=== PATIENT | male | born 1960 | race Caucasian/White ===

== ENCOUNTER 2020-10-25 09:46 | Outpatient (REF) | payer OTHER, SELFPAY ==
[2020-10-25 11:20] LABS: Hematocrit 40.4 % (42-52); Hemoglobin 13.6 g/dl (14.0-18.0); Mean Corpuscular HGB Conc 33.7 g/dl (31.0-36.0); Mean Corpuscular Hemoglobin 30.6 pg (27.0-33.0); Mean Platelet Volume 9.8 fL (9.4-12.4); Platelet Count 269 X10*3/uL (160-400); Red Blood Count 4.44 X10*6/uL (4.60-5.80); Red Cell Distribution Width 12.3 % (11.0-16.0); White Blood Count 9.1 X10*3/uL (4.8-10.8)
[2020-10-25 11:31] LABS: Glucose Urine UA NEG (NEG); Leukocyte Esterase Urine NEG (NEG); Nitrite Urine NEG (NEG); PH 6.5 (5.0-8.0); Specific Gravity - Urine 1.025 (1.005-1.025); Urine Blood NEG (NEG); Urine Ketones NEG (NEG); Urine Protein NEG (NEG-TRACE)
[2020-10-25 11:40] LABS: Appearance Urine CLEAR; Color Urine YELLOW
[2020-10-25 12:02] LABS: Alanine Aminotransferase 23 U/L (0-40); Albumin Level 4.3 g/dL (3.5-5.0); Alkaline Phosphatase 54 U/L (39-117); Anion Gap 14 (12-20); Aspartate Amino Transferase 20 U/L (5-37); Bilirubin Total 0.5 mg/dL (0.0-1.0); Blood Urea Nitrogen 18 mg/dL (9-16); Calcium 8.8 mg/dL (8.4-10.2); Carbon Dioxide 25 mmol/L (22-29); Chloride 108 mmol/L (96-108); Cholesterol 201 mg/dL; Estimated Glomerular Filt Rate > 60; Glucose Fasting 103 mg/dL (60-99); HDL Cholesterol 55 mg/dL; LDL Cholesterol Calculated 131 mg/dl; Potassium 4.1 mmol/L (3.3-5.1); Prostate Specific Antigen Scr 0.63 ng/mL (<0.05-4.0); Sodium 143 mmol/L (135-145); Total Protein 7.2 g/dL (6.5-8.0); Triglycerides 75 mg/dL
[2020-10-25 12:27] LABS: Bacteria Urine TRACE /LPF; Mucus Urine 1+ /LPF; RBC Urine 0-2 /HPF (0); WBC Urine 0-2 /HPF (0-4)
== END 2020-10-25 09:47 | disposition home or self-care (01) ==
LOC: HO.HMGCLDS 09:46
PROVIDERS: PCP Internal Medicine; Visit Provider Internal Medicine
DX: Z00.00 Encounter for general adult medical examination without abnormal findings (principal); Z12.5 Encounter for screening for malignant neoplasm of prostate; R10.9 Unspecified abdominal pain; N20.0 Calculus of kidney
CPT/HCPCS: 36415; 80053; 80061; 81001; 84153; 85027

== ENCOUNTER 2020-11-05 08:31 | Outpatient (REF) | payer OTHER, SELFPAY ==
--- NOTE | ~2020-11-05 | CT_ITS ---
EXAMINATION: CT ABDOMEN AND PELVIS WITH CONTRAST CLINICAL INFORMATION: Diverticulitis COMPARISON: None TECHNIQUE: Multidetector volumetric images were obtained from the superior aspect of the liver through the pubic symphysis following administration 85 mL of Omnipaque 350 intravenous contrast. Sagittal and coronal reformatted images were obtained on the technologist's workstation. Oral contrast: Yes This CT examination was performed using dose optimization techniques as appropriate, variously including the following: *Automated exposure control *Adjustment of mA and/or kV according to patient size (this includes techniques or standardized protocols for targeted exams where dose is matched to indication/reason for exam; i.e. extremities or head) *Use of iterative reconstruction technique DLP: 586 mGy-cm FINDINGS: LUNG BASES: The visualized lung bases are unremarkable. LIVER, GALLBLADDER, AND BILIARY TREE: The liver is normal in size, shape, and attenuation. No focal hepatic lesion or biliary ductal dilatation is present. The gallbladder is unremarkable with no evidence of radiopaque gallstones, gallbladder wall thickening, or obvious pericholecystic inflammatory changes. PANCREAS: There is fatty infiltration of the pancreas. SPLEEN: Unremarkable. ADRENAL GLANDS: Unremarkable. KIDNEYS AND URETERS: There are small bilateral low-attenuation renal lesions suggestive of cysts. The largest measures 1 cm in the upper pole of the left kidney. BLADDER: Unremarkable. GASTROINTESTINAL TRACT: There is mild diverticulosis of the colon. No evidence of diverticulitis is seen. The small and large bowel are otherwise unremarkable. The appendix is unremarkable. ABDOMINAL WALL: No significant hernia is appreciated. LYMPH NODES: Normal. VASCULAR: Unremarkable. PELVIC VISCERA: Unremarkable. OSSEOUS STRUCTURES: There is degenerative disc disease at L5-S1. CT/CT abdomen pelvis w con IMPRESSION: Mild diverticulosis. No evidence of diverticulitis. Fatty infiltration of the pancreas. Small bilateral renal cysts.
[2020-11-05] MEDS: Barium Sulfate Oral (Mocha) 450 ML ORAL.SUSP 900 ML PO (12:25)
== END 2020-11-05 08:32 | disposition home or self-care (01) ==
LOC: HO.CT 08:31
PROVIDERS: Visit Provider Internal Medicine
DX: R10.9 Unspecified abdominal pain (principal); K57.92 Diverticulitis of intestine, part unspecified, without perforation or abscess without bleeding
CPT/HCPCS: 74177; Q9967

== ENCOUNTER → 2021-01-03 13:53 | Outpatient (BNVA) | payer OTHER, SELFPAY | PROVIDERS: PCP Internal Medicine; Referring Provider Internal Medicine; Visit Provider Nurse Practitioner | DX: R10.13 Epigastric pain (principal); K29.70 Gastritis, unspecified, without bleeding; K57.92 Diverticulitis of intestine, part unspecified, without perforation or abscess without bleeding; D12.6 Benign neoplasm of colon, unspecified; A04.8 Other specified bacterial intestinal infections | CPT/HCPCS: 99202 ==

== ENCOUNTER 2021-01-04 09:56 | Outpatient (REF) | payer OTHER, SELFPAY | END 2021-01-04 09:57 | disposition home or self-care (01) | LOC: HO.LNP 09:56 | PROVIDERS: Visit Provider Nurse Practitioner | DX: K29.70 Gastritis, unspecified, without bleeding (principal); B96.81 Helicobacter pylori [H. pylori] as the cause of diseases classified elsewhere; R10.13 Epigastric pain | CPT/HCPCS: 87338 ==

== ENCOUNTER 2021-02-28 08:36 | Outpatient (REF) | payer OTHER, SELFPAY ==
--- NOTE | ~2021-02-28 | XR_ITS ---
EXAMINATION: XR LUMBOSACRAL SPINE CLINICAL INFORMATION: Sciatica. COMPARISON: CT scan of 11/05/2020 TECHNIQUE: Three views of the lumbosacral spine. FINDINGS: There is no evidence of acute fracture, spondylolisthesis, or spondylolysis. There is narrowing of the L5-S1 disc space with marginal spurring present. Sacroiliac joints unremarkable. There is some concavity of the superior endplate of L3 which is chronic but more prominent than on the study of 11/05/2020. XR/XR lumbar spine 2-3V IMPRESSION: Degenerative disc disease L5-S1. Mild compression in superior endplate compression fracture without significant loss of height of L3.
[2021-02-28 12:55] LABS: Folate 16.8 ng/mL (> or = 4.0); Vitamin B12 1080 pg/mL (200-900)
== END 2021-02-28 08:37 | disposition home or self-care (01) ==
LOC: HO.HMGCLDS 08:36
PROVIDERS: PCP Internal Medicine; Visit Provider Internal Medicine
DX: M54.30 Sciatica, unspecified side (principal)
CPT/HCPCS: 36415; 72100; 82607; 82746

== ENCOUNTER → 2021-03-01 15:09 | Outpatient (BNVA) | payer OTHER, SELFPAY | PROVIDERS: PCP Internal Medicine; Referring Provider Internal Medicine; Visit Provider Nurse Practitioner | DX: D12.6 Benign neoplasm of colon, unspecified (principal); R10.13 Epigastric pain; A04.8 Other specified bacterial intestinal infections; K29.70 Gastritis, unspecified, without bleeding; M62.08 Separation of muscle (nontraumatic), other site | CPT/HCPCS: 99212 ==

== ENCOUNTER → 2021-06-03 14:27 | Outpatient (BNVA) | payer OTHER, SELFPAY | PROVIDERS: PCP Internal Medicine; Visit Provider Nurse Practitioner | DX: R10.13 Epigastric pain (principal); E04.8 Other specified nontoxic goiter; D12.6 Benign neoplasm of colon, unspecified; K21.9 Gastro-esophageal reflux disease without esophagitis | CPT/HCPCS: 99212 ==

== ENCOUNTER 2021-06-10 08:00 | Outpatient (RCR) | payer OTHER, SELFPAY ==
--- NOTE | 2021-04-17 12:51 | MHC.PT.EP ---
[facility] [place] Office [place] Office [place] Office [address] Sebastian Scott [address] [phone] F: [phone] F: [phone] F: [phone] F: [phone] Physical Therapy Plan of Care Date of Evaluation: Date of Surgery: NA Diagnosis: SCIATICA Assessment: Pt IS 61 YO M REFERRED TO PT FROM DR READ (ALTHOUGH Pt SAYS HE HAS ONLY SEEN DR DASILVA) WITH SCIATICA. Pt PRESENTS WITH C/OB LBP AND B FOOT BURNING . AT ONE POINT DURING EVAL, Pt REPORTS SOME GLUT PAIN. DOES NOT PRESENT WITH TYPICAL SCIATICA SXS. XRAY +DISC SPACE NARROWING L5-S1 WITH PREFERENCE TOWARD FLEXION WITH TRUNK ROM, PREFERS SUP TO PRONE, BUT PREFERS STAND TO SIT. Pt WITH BULGING ABDOMINAL POSTURE WITH WEAK ABD MMS NOTES. TENDS TO SIT TO OFFWEIGHT L SIDE. NEG LIMP WITH GOOD TRUNK FLEXIBILITY WITHOUT SIGNIF LEG WEAKNESS. Pt REPORTS HE HAS BEEN TOLD IN PAST THAT HE HAS A HERNIATED DISC AND DOES REPORT RELIEF WITH INCLINE TABLE AT HOME. MAY BENEFIT FROM TRACTION TRIAL. SHOULD BENFIT FROM BEGINNING WITH EX/STRETCHES WITH NEUTRAL SPINE WITH PROGRESSION TO FLEXION VS EXTENSION PER SXS/TOLERANCE Frequency and Duration: The patient will be seen 2X/WK X 6 WKS Short Term Goals: 1. CENTRALIZE SXS 2. Pt TO PERF 2-3 TASKS (RETURNED ITEM CLERK) WITH PROPER BODY MECH 3. INCREASED AWARENESS POSTURE (SYMMETRICAL SIT NOTED) Resident Service Coordinator Goals: 1. I HEP WITH DC EX PLAN 2. DECREASED BACK PAIN AT LEAST 50% WITH ADLS 3. DECREASED FOOT BURNING 4. IMPROVED ABILITY TO PERF WORK RELATED TASKS WITH LESS SXS 5, IMPROVED LEFI Treatment Plan: Modalities to reduce pain, spasms and effusion. Manual therapy to restore motion and function. Therapeutic exercise to improve strength and flexibility. Neuromuscular re-education for posture and balance. Therapeutic activities to return to functional activities of daily living. Electronically signed by: ANTONIO PIKE PT Please sign and return to therapist. Thank you for your referral.
--- NOTE | 2021-07-24 08:12 | MHC.PT.DC ---
[facility] [place] Office [place] Office [place] Office [address] Sebastian Scott [address] [phone] F: [phone] F: [phone] F: [phone] F: [phone] Physical Therapy Discharge Report Diagnosis: SCIATICA Date of Surgery: NA Date of Evaluation: 04/17/21 Date of Discharge: 07/24/21 Treatments to Date: 6 Cancellations to Date: No Shows to Date: Discharge Status: Patient Elected to Stop Recommend MD Follow-up Discharge Summary: Pt SEEN FOR INIT EVAL AND 5 VISITS. AT LAST VISIT ON 06/10/21 PER ASSESSMENT BY JAIME DOS SANTOS PT,DPT Pt expressing positive response to use of mechanical lumbar traction; reports use of physioball for support LBTR at home.'. Pt THEN CANCELLED LAST SCHEDULED VISIT ON 06/14/21 (SICK) AND DID NOT SCHEDULE ANY FURTHER. PER OFFICE VISIT NOTE FROM DR DASILVA ON 07/16/21, Pt HAD COVID AND HAD BEEN HOSPITALIZED X 1 WK Electronically signed by: ANTONIO PIKE PT Please sign and return to therapist. Thank you for your referral.
== END 2021-07-24 08:15 | disposition home or self-care (01) ==
LOC: HO.PTWFD 08:00
PROVIDERS: PCP Internal Medicine; Visit Provider Internal Medicine
DX: M54.30 Sciatica, unspecified side (principal)
CPT/HCPCS: 97012; 97110; 97162; 97164; 97535

== ENCOUNTER 2021-07-16 09:23 | Outpatient (REF) | payer OTHER, SELFPAY ==
[2021-07-16 11:42] LABS: Hematocrit 38.1 % (42.0-52.0); Hemoglobin 12.7 g/dl (14.0-18.0); Mean Corpuscular HGB Conc 33.3 g/dl (31.0-36.0); Mean Corpuscular Hemoglobin 30.9 pg (27.0-33.0); Mean Corpuscular Volume 92.7 fL (80.0-98.0); Platelet Count 215 X10*3/uL (160-400); Red Blood Count 4.11 X10*6/uL (4.60-5.80); Red Cell Distribution Width 13.1 % (11.0-16.0); White Blood Count 6.8 X10*3/uL (4.8-10.8)
[2021-07-16 11:54] LABS: Alanine Aminotransferase 29 U/L (0-40); Albumin Level 3.8 g/dL (3.5-5.0); Alkaline Phosphatase 60 U/L (39-117); Anion Gap 9 (12-20); Aspartate Amino Transferase 25 U/L (5-37); Bilirubin Total 0.7 mg/dL (0.0-1.0); Blood Urea Nitrogen 17 mg/dL (9-16); Calcium 9.2 mg/dL (8.4-10.2); Carbon Dioxide 29 mmol/L (22-29); Chloride 104 mmol/L (96-108); Estimated Glomerular Filt Rate > 60; Glucose Fasting 99 mg/dL (60-99); Iron 125 mcg/dL (45-160); Percent Iron Saturation 49 % (15-50); Potassium 4.3 mmol/L (3.3-5.1); Sodium 138 mmol/L (135-145); Total Iron Binding Capacity 256 mcg/dL (228-428); Total Protein 6.8 g/dL (6.5-8.0); Unsaturated Iron Binding 131 ug/dL
[2021-07-16 12:11] LABS: Estimated Average Glucose 134 mg/dL; Hemoglobin A1c % 6.3 %
[2021-07-16 12:17] LABS: Vitamin D 25-OH Total 48.8 ng/mL (>30)
[2021-07-16 12:39] LABS: Folate 17.1 ng/mL (> or = 4.0); Vitamin B12 1687 pg/mL (200-900)
== END 2021-07-16 09:24 | disposition home or self-care (01) ==
LOC: HO.HMGCLDS 09:23
PROVIDERS: PCP Internal Medicine; Visit Provider Internal Medicine
DX: Z00.00 Encounter for general adult medical examination without abnormal findings (principal); R53.83 Other fatigue; R73.9 Hyperglycemia, unspecified; E55.9 Vitamin D deficiency, unspecified; U07.1 COVID-19
CPT/HCPCS: 36415; 80053; 82306; 82607; 82746; 83036; 83540; 85027

== ENCOUNTER 2021-08-15 10:44 | Outpatient (REF) | payer OTHER, SELFPAY ==
--- NOTE | ~2021-08-15 | XR_ITS ---
EXAMINATION: XR CHEST CLINICAL INFORMATION: Covid 19 positive COMPARISON: Chest 09/23/2019 TECHNIQUE: Frontal view of the chest was obtained. FINDINGS: The lungs are well-expanded with no acute pneumonic process seen. Mild prominence of reticular nodular changes in both lower lobes and lingula. No consolidation pleural effusion. The heart size and pulmonary vascularity is normal. XR/XR chest 1V IMPRESSION: Minimal prominence of reticular interstitial pattern in both lower lobes and lingula. These findings are new since 09/23/2019. ? Early changes of infiltrate.
== END 2021-08-15 10:45 | disposition home or self-care (01) ==
LOC: HO.HMGCX 10:44
PROVIDERS: PCP Internal Medicine; Visit Provider Internal Medicine
DX: U07.1 COVID-19 (principal)
CPT/HCPCS: 71045

== ENCOUNTER 2021-11-14 10:03 | Outpatient (REF) | payer OTHER, SELFPAY ==
--- NOTE | ~2021-11-14 | XR_ITS ---
EXAMINATION: XR KNEE, LEFT CLINICAL INFORMATION: Knee pain. M25.562 COMPARISON: None TECHNIQUE: AP and lateral views of the left knee. FINDINGS: There is no fracture or dislocation. No definite effusion. Hoffa's fat pad appears normal. There is borderline narrowing medial knee joint compartment. No erosive change or chondrocalcinosis. There is linear mineralization at the superomedial medial femoral condyle, likely sequela from remote proximal MCL injury. There is a subtle lucent lesion distal femoral shaft with posterior endosteal scalloping measuring 1.5 cm in diameter. No definite matrix mineralization. Subtle peripheral sclerosis suggested anteriorly and superiorly. Lesion resides 11 cm from the knee joint. XR/XR knee LT 2V IMPRESSION: -Subtle lucent lesion distal femoral shaft 1.5 cm with endosteal scalloping. No definite matrix mineralization. Finding is of uncertain significance could be correlated with MRI. -Borderline narrowing medial knee joint compartment. -Benign linear mineralization adjacent to medial femoral condyle likely sequela from prior remote proximal MCL injury.
--- NOTE | ~2021-11-14 | XR_ITS ---
EXAMINATION: XR CHEST CLINICAL INFORMATION: Dyspnea. COMPARISON: Chest 08/15/2021 TECHNIQUE: 2 views of the chest were obtained. FINDINGS: No significant abnormality is noted involving the heart, lungs, mediastinum, bony thorax or soft tissues. XR/XR chest 2V IMPRESSION: Unremarkable chest examination.
[2021-11-14 11:24] LABS: Hematocrit 41.4 % (42.0-52.0); Hemoglobin 13.8 g/dl (14.0-18.0); Mean Corpuscular HGB Conc 33.3 g/dl (31.0-36.0); Mean Corpuscular Hemoglobin 29.9 pg (27.0-33.0); Mean Corpuscular Volume 89.8 fL (80.0-98.0); Mean Platelet Volume 10.2 fL (9.4-12.4); Platelet Count 264 X10*3/uL (160-400); Red Blood Count 4.61 X10*6/uL (4.60-5.80); Red Cell Distribution Width 12.5 % (11.0-16.0); White Blood Count 8.2 X10*3/uL (4.8-10.8)
[2021-11-14 11:25] LABS: Estimated Average Glucose 117 mg/dL; Hemoglobin A1C 149.5853 umol/L; Hemoglobin A1c % 5.7 %
[2021-11-14 11:34] LABS: Appearance Urine HAZY; Color Urine YELLOW; Glucose Urine UA NEG (NEG); Leukocyte Esterase Urine NEG (NEG); Nitrite Urine NEG (NEG); PH 5.5 (5.0-8.0); Specific Gravity - Urine >= 1.030 (1.005-1.025); Urine Blood NEG (NEG); Urine Ketones NEG (NEG); Urine Protein NEG (NEG-TRACE)
[2021-11-14 11:54] LABS: Calcium Oxalate Crystals Urine 1+ /LPF
[2021-11-14 11:55] LABS: Mucus Urine 1+ /LPF
[2021-11-14 11:56] LABS: WBC Urine 0 /HPF (0-4)
[2021-11-14 11:57] LABS: Creatinine Urine 262.68 mg/dL; Microalbum/Creatinine Ratio Ur 10.2 ug/mg cr
[2021-11-14 12:04] LABS: Alanine Aminotransferase 15 U/L (0-40); Albumin Level 4.3 g/dL (3.5-5.0); Alkaline Phosphatase 48 U/L (39-117); Anion Gap 14 (12-20); Aspartate Amino Transferase 19 U/L (5-37); Bilirubin Total 0.7 mg/dL (0.0-1.0); Blood Urea Nitrogen 29 mg/dL (9-16); Calcium 9.5 mg/dL (8.4-10.2); Carbon Dioxide 24 mmol/L (22-29); Chloride 107 mmol/L (96-108); Cholesterol 228 mg/dL; Estimated Glomerular Filt Rate > 60; Glucose Fasting 103 mg/dL (60-99); HDL Cholesterol 60 mg/dL; LDL Cholesterol Calculated 155 mg/dl; Potassium 4.1 mmol/L (3.3-5.1); Sodium 141 mmol/L (135-145); Total Protein 7.2 g/dL (6.5-8.0); Triglycerides 67 mg/dL
[2021-11-14 12:07] LABS: TSH reflex Free T4 0.83 uIU/mL (0.32-4.0)
== END 2021-11-14 10:04 | disposition home or self-care (01) ==
LOC: HO.HMGCLDS 10:03
PROVIDERS: Visit Provider Internal Medicine
DX: M25.562 Pain in left knee (principal); R06.00 Dyspnea, unspecified; E78.5 Hyperlipidemia, unspecified; R73.9 Hyperglycemia, unspecified
CPT/HCPCS: 36415; 71046; 73560; 80053; 80061; 81001; 82043; 83036; 84443; 85027

== ENCOUNTER → 2021-12-02 13:42 | Outpatient (BNVA) | payer OTHER, SELFPAY | PROVIDERS: PCP Internal Medicine; Referring Provider Internal Medicine; Visit Provider Nurse Practitioner | DX: K21.9 Gastro-esophageal reflux disease without esophagitis (principal); Z79.899 Other long term (current) drug therapy; Z86.010 Personal history of colon polyps | CPT/HCPCS: 99212 ==

== ENCOUNTER → 2022-02-05 09:00 | Outpatient (REF) | payer OTHER, SELFPAY ==
--- NOTE | 2022-02-05 09:05 | CA_ITS ---
Acquisition Time: 2022-02-05 09:20:26 Total Exercise Time: 00:08:27 Test Indications: CHEST PAIN, SHORTNESS OF BREATH Medications: SEE H Protocol: ANNE Max HR: 146 BPM 92% of Pred: 157 BPM Max BP: 168/078 mmHG Max Work Load: 10.1 METS Exercise stress test with exercise 8 min 27 sec of Anne protocol, with mild so moderate shortness of breath, no chest discomfort, without arrythmia, with normotensive response to exercise, without EKG changes meeting crieria for ischemia. Breathing quickly normalized in recovery. Test reviewed with Dr Rooney Referred By: Peggy Coyne Overread By: CRISTIANA WATKINS
== END ==
LOC: HO.CARD 09:00
PROVIDERS: Visit Provider Internal Medicine
DX: R06.00 Dyspnea, unspecified (principal); E78.5 Hyperlipidemia, unspecified; I20.9 Angina pectoris, unspecified; M25.562 Pain in left knee
CPT/HCPCS: 93017

== ENCOUNTER 2022-06-04 08:57 | Outpatient (REF) | payer OTHER, SELFPAY ==
[2022-06-04 12:00] LABS: Hematocrit 41.4 % (42.0-52.0); Hemoglobin 13.9 g/dl (14.0-18.0); Mean Corpuscular HGB Conc 33.6 g/dl (31.0-36.0); Mean Corpuscular Volume 89.4 fL (80.0-98.0); Mean Platelet Volume 10.1 fL (9.4-12.4); Platelet Count 272 X10*3/uL (160-400); Red Blood Count 4.63 X10*6/uL (4.60-5.80); Red Cell Distribution Width 12.5 % (11.0-16.0); White Blood Count 8.3 X10*3/uL (4.8-10.8)
[2022-06-04 12:33] LABS: Alanine Aminotransferase 17 U/L (0-40); Albumin Level 4.3 g/dL (3.5-5.0); Alkaline Phosphatase 57 U/L (39-117); Anion Gap 14 (12-20); Aspartate Amino Transferase 20 U/L (5-37); Bilirubin Total 0.5 mg/dL (0.0-1.0); Blood Urea Nitrogen 17 mg/dL (9-16); Calcium 9.4 mg/dL (8.4-10.2); Carbon Dioxide 26 mmol/L (22-29); Chloride 106 mmol/L (96-108); Cholesterol 218 mg/dL; Estimated Glomerular Filt Rate > 60; Glucose Fasting 101 mg/dL (60-99); HDL Cholesterol 53 mg/dL; LDL Cholesterol Calculated 150 mg/dl; Potassium 4.4 mmol/L (3.3-5.1); Sodium 142 mmol/L (135-145); Total Protein 7.1 g/dL (6.5-8.0); Triglycerides 75 mg/dL
[2022-06-04 12:37] LABS: Estimated Average Glucose 117 mg/dL; Hemoglobin A1c % 5.7 %
== END 2022-06-04 08:58 | disposition home or self-care (01) ==
LOC: HO.HMGCLDS 08:57
PROVIDERS: PCP Internal Medicine; Visit Provider Internal Medicine
DX: Z00.00 Encounter for general adult medical examination without abnormal findings (principal); E78.5 Hyperlipidemia, unspecified; R73.9 Hyperglycemia, unspecified; Z86.19 Personal history of other infectious and parasitic diseases
CPT/HCPCS: 36415; 80053; 80061; 83036; 85027; 87338

== ENCOUNTER 2022-07-14 12:42 | Day surgery (SDC) | payer OTHER, SELFPAY ==
--- NOTE | 2022-07-11 12:08 | P.CONAN_ITS ---
Documented by User: Nicol Matos NP 07/11/22 12:10 HPI - Anesthesia Eval Consult details Narrative: 62yo M for Upper Endoscopy and Colonoscopy PMFSH Active Problems Active Problems: All Active Problems (Updated 03/04/22 @ 08:55 by Peggy Coyne MD) Hx of Helicobacter infection (Acute) Knee pain, left (Acute) Angina pectoris (Acute) Hyperlipidemia (Acute) AIKEN (dyspnea on exertion) (Acute) COVID-19 (Acute) Vitamin D deficiency (Acute) Hyperglycemia (Acute) Fatigue (Acute) GERD (gastroesophageal reflux disease) (Acute) H/O colonoscopy (Acute) Diastasis of rectus abdominis (Acute) Sciatica (Acute) Neuropathy (Acute) Tubular adenoma of colon (Acute) Epigastric pain (Acute) H. pylori infection (Acute) Gastritis (Acute) Diverticulitis (Acute) Annual physical exam (Acute) Past Medical History Medical History Abdominal pain Angina pectoris Annual physical exam Chronic rhinitis COVID-19 Diverticulitis AIKEN (dyspnea on exertion) Fatigue Gastritis H. pylori infection Hyperglycemia Hyperlipidemia Kidney stones Knee pain, left Neuropathy Sciatica Vitamin D deficiency Family History Family History Father Lung cancer Mother Stroke Surgical History Surgical History H/O colonoscopy Social History Social History Household Members Other:: from [facility] Housing: House Alcohol intake: never Patient Tobacco Use Status: Former Tobacco user Quit Date: 30 years ago e-Cigarette/Vaping Use: Never Used Are you DNR?: No Advance Directives: No Advance Directives Information Provided: Yes Nutrition Risks: No Nutritional Risk Current occupational status: employed Cognitive needs: No Hearing needs: No Vision needs: No Meds Allergies Allergy/AdvReac Type Severity Reaction Status Date / Time No Known Allergies Allergy Verified 07/14/22 13:42 Exam Exam Date and Time: July 11, 2022 1208 Pertinent Lab Results Pertinent Lab Results: Laboratory Tests 06/04/22 06/04/22 09:05 09:05 WBC 8.3 Hgb 13.9 L Hct 41.4 L Plt Count 272 Sodium 142 Potassium 4.4 Chloride 106 Carbon Dioxide 26 BUN 17 H Creatinine 0.87 Assessment and Plan Assessment Anesthesia Assessment: Chart Reviewed Documented by User: Maddie Hutson MD 07/14/22 13:48 [facility] Past Medical History Medical History Abdominal pain Angina pectoris Annual physical exam Chronic rhinitis COVID-19 Diverticulitis AIKEN (dyspnea on exertion) Fatigue Gastritis H. pylori infection Hyperglycemia Hyperlipidemia Kidney stones Knee pain, left Neuropathy Sciatica Vitamin D deficiency Functional capacity: wheelchair bound Family History Family History Father Lung cancer Mother Stroke Family history of problems with anesthesia: No Surgical History Surgical History H/O colonoscopy History of Problems with Anesthesia: No Social History Social History Household Members Other:: from [facility] Housing: House Alcohol intake: never Patient Tobacco Use Status: Former Tobacco user Quit Date: 30 years ago e-Cigarette/Vaping Use: Never Used Are you DNR?: No Advance Directives: No Advance Directives Information Provided: Yes Nutrition Risks: No Nutritional Risk Current occupational status: employed Cognitive needs: No Hearing needs: No Vision needs: No Meds Allergies Allergy/AdvReac Type Severity Reaction Status Date / Time No Known Allergies Allergy Verified 07/14/22 13:42 Exam Airway Mallampati Class: III (Imolants on lower) TM Dist: >3cm Neck ROM: Full Denture: Upper Heart: rrr Lungs: cta Assessment and Plan Assessment Anesthesia Assessment: Anesthesia Plan Discussed Final Anesthetic Review Family History of Problems with Anesthesia: No History of Problems with Anesthesia: No NPO: Yes ASA Class: III Final Preanesthetic Review: No Changes in Pt Med Stat, Meds/Allgs Chart Reviewed and Consent Obtained/Reviewed Patient Risk: Intermediate Procedure Risk: Intermediate Anesthetic Plan Anesthetic Plan: MAC: Disposition: Standard PACU
[2022-07-14 13:01] VITALS: BMI 33.7
[2022-07-14 13:42] VITALS: BP 122/82; PULSE 72; RESP 18; TEMP 36.7; O2SAT 97
[2022-07-14] MEDS: Lactated Ringers 1,000 ML 100 ML IVCONT (13:54)
--- NOTE | 2022-07-14 14:31 | MHC.SHP ---
Pre-Procedural Eval Section A Date of Service: 07/14/22 The patient is an INPATIENT: No The History & Physical has been completed within 30 days and I have reviewed it.: No Section B Chief Complaint: Benign neoplasm of colon,reflux disease Details of Present Illness: Colon cancer screening, history of colon polyps, GERD Relevant Family History (Specify if Yes): No Relevant Social History: Tobacco Use (Former smoker) Present Medications: see Short Stay Collaborative assessment Medical History: Significant History (Abdominal pain Angina pectoris Annual physical exam Chronic rhinitis COVID-19 Diverticulitis AIKEN (dyspnea on exertion) Fatigue Gastritis H. pylori infection Hyperglycemia Hyperlipidemia Kidney stones Knee pain, left Neuropathy Sciatica Vitamin D deficiency) History of Previous Operations: Relevant previous surgery/procedure and date(s) (History of colonoscopy) Allergies: Allergies Allergy/AdvReac Type Severity Reaction Status Date / Time No Known Allergies Allergy Verified 07/14/22 13:42 Review of Systems Sugical H&P ROS: Negative: Constitution, Cardiovascular, Respiratory and Gastrointestinal Exam Surgical H&P Exam: Normal: Heart, Normal: Lungs, Normal: Extremities and Normal: Abdomen Plan Diagnosis/Plan: Unchanged I have reviewed the history and physical and performed a pertinent physical examination on my patient. No changes have occurred unless specified. Time Spent With Patient Time: Total time managing care of this patient today ____ minutes.
--- NOTE | 2022-07-14 14:40 | P.BOP_ITS ---
Brief Operative Note Date of Service: 07/14/22 Pre-op diagnosis: Colon cancer screening, history of colon polyps, GERD Post-op diagnosis: other (GERD, GASTRITIS, GASTRIC ANTRAL NODULE, COLON POLYPS, DIVERTICULOSIS, HEMORRHOIDS) Procedure: COLONOSCOPY TO CECUM WITH SNARE POLYPECTOMY Surgeon: Armand Koroma MD Anesthesia: MAC Was an Senior Mortgage Underwriter used for this Procedure?: Yes Senior Mortgage Underwriter: Maria G Tapia Estimated blood loss (mL): 0 Pathology: other ( A. antral bxs, R/O H. pylori B. gastric antrum nodule C. transverse colon polyps (4) D. sigmoid polyps (4) E. rectal polyp) Condition: stable Disposition: PACU
--- NOTE | 2022-07-14 14:40 | W.PM.OPN ---
Operative Note Operative Note Date of Service: 07/14/22 Narrative: Pre-op diagnosis: Colon cancer screening, history of colon polyps, GERD Post-op diagnosis:?other (GERD, GASTRITIS, GASTRIC ANTRAL NODULE, COLON POLYPS, DIVERTICULOSIS, HEMORRHOIDS) Surgeon: Armand Koroma MD Anesthesia:?MAC FLEXIBLE TRANSORAL UPPER GASTROINTESTINAL ENDOSCOPY WITH BIOPSIES AND COLONOSCOPY TILL CECUM WITH SNARE POLYPECTOMY UPPER ENDOSCOPY Consent: Indications for the procedure and potential complications of bleeding, perforation, reaction to medications and missed diagnosis were discussed with the patient with the help of a Mongolian language pathologist and informed consent was obtained. Instrument: Olympus GIF H 190 mid size upper endoscope Monitoring: Vital signs and clinical assessment, continuous EKG monitoring, Pulse oximetry, Carbon Dioxide monitoring and blood pressure monitoring were done throughout the procedure. Procedure: The patient was placed in the left lateral decubitis position and pre-procedure medications were administered and a bite block was placed. The endoscope was inserted into the mouth and advanced under direct vision to the third part of duodenum. A careful inspection was made as the upper endoscope was withdrawn including a retroflexed examination of the proximal stomach; Findings and interventions are described below. Findings: Larynx: Normal Esophagus: GE junction at 40 cms. No esophagitis or Stauffer's. Stomach: Mild gastric antral erythema. Biopsies were obtained. A 10-12 mm benign apearing nodule/polyp in the antrum - biopsied. Grade 2 flap valve on retroflexed examination of the cardia. Duodenum: Normal bulb and descending duodenum Intervention: Biopsies as noted above COLONOSCOPY PROCEDURE NOTE Consent: Indications for the procedure and potential complications of bleeding, perforation, reaction to medications and missed diagnosis were discussed with the patient and informed consent was obtained. Instrument: Olympus PCF H 190 L variable stiffness pediatric colonoscope Monitoring: Vital signs and clinical assessment, intermittent blood pressure monitoring, continuous EKG monitoring, Pulse oximetry and Carbon Dioxide monitoring were done throughout the procedure. Colon withdrawl time was 29 minutes. Procedure: The patient was placed in the left lateral decubitis position and pre-procedure medications were administered. After a digital rectal examination of the ano-rectum, the video colonoscope was inserted into the rectum and advanced through the colon to the cecum. The colonoscope was slowly withdrawn in a retrograde panoramic fashion and the colon mucosa was carefully examined including a retroflexed view of the rectum. Findings and interventions are described below. Procedure Difficulty: : Colon was long and tortuous and there was recent loop formation. LLQ pressure was applied to intubate the ascending colon Findings: Terminal Ileum: Not evaluated Cecum: Normal Ascending Colon: Normal Transverse Colon: Four 12 to 18 mm sessile polyps removed with a hot snare. Descending Colon: Normal Sigmoid Colon: Four 12 to 20 mm sessile polyps removed with a hot snare. Moderate diverticulosis Rectum: A 10 mm sessile polyp - removed with a hot snare. Ano-rectum: Moderate internal hemorrhoids Colon preparation: Good Impression and Post Procedure Diagnosis: Endoscopy Findings: STOMACH: Mild gastric antral erythema. Biopsies were obtained. A 10-12 mm benign apearing nodule/polyp in the antrum - biopsied. Grade 2 flap valve on retroflexed examination of the cardia. Colonoscopy Findings: Nine medium sized polyps removed Moderate diverticulosis seen in the sigmoid colon Moderate hemorrhoids on retroflexed exam. Plan: Await pathology results Patient has an appointment on 08/15/22 in the GI Clinic with Christi Harrison NP . Repeat Colonoscopy interval based on path results - in 1-2 years if polyps are adenomatous and 10 years if polyps are hyperplastic. Above findings were reviewed with the patient (with the help of a Mongolian language pathologist) and GERD, colon polyps and diverticulosis handouts were given in the discharge area
[2022-07-14 15:53] VITALS: BP 106/73; PULSE 86; RESP 22; TEMP 36.8; O2SAT 94
[2022-07-14 16:06] VITALS: BP 111/75; PULSE 84; RESP 20; O2SAT 98
[2022-07-14 16:21] VITALS: BP 116/80; PULSE 80; RESP 18; TEMP 36.9; O2SAT 99
== END 2022-07-14 16:44 | disposition home or self-care (01) ==
PROVIDERS: PCP Internal Medicine; Visit Provider Internal Medicine Gastroenterology
PROC: (CPT 45385; principal; 2022-07-14 14:00)
DX: Z12.11 Encounter for screening for malignant neoplasm of colon (principal); D12.3 Benign neoplasm of transverse colon; D12.5 Benign neoplasm of sigmoid colon; D12.8 Benign neoplasm of rectum; K57.30 Diverticulosis of large intestine without perforation or abscess without bleeding; K64.8 Other hemorrhoids; K56.2 Volvulus; Z86.010 Personal history of colon polyps; K21.9 Gastro-esophageal reflux disease without esophagitis; K29.70 Gastritis, unspecified, without bleeding; K31.89 Other diseases of stomach and duodenum; E78.5 Hyperlipidemia, unspecified; Z79.899 Other long term (current) drug therapy
CPT/HCPCS: 45385; 43239; 88305; 88342

== ENCOUNTER → 2022-08-15 09:48 | Outpatient (BNVA) | payer OTHER, SELFPAY | PROVIDERS: PCP Internal Medicine; Visit Provider Nurse Practitioner | DX: K21.9 Gastro-esophageal reflux disease without esophagitis (principal); D12.3 Benign neoplasm of transverse colon; D12.5 Benign neoplasm of sigmoid colon; D12.8 Benign neoplasm of rectum; K59.00 Constipation, unspecified; L71.1 Rhinophyma; Z79.899 Other long term (current) drug therapy; Z98.890 Other specified postprocedural states | CPT/HCPCS: 99212 ==

== ENCOUNTER 2022-09-02 09:00 | Outpatient (REF) | payer OTHER, SELFPAY ==
--- NOTE | ~2022-09-02 | US_ITS ---
EXAMINATION: US ABDOMEN COMPLETE CLINICAL INFORMATION: Unspecified abdominal pain. Rule out gallstones. COMPARISON: CT abdomen and pelvis 11/05/2020. TECHNIQUE: Real-time imaging of the abdominal viscera. Technically difficult study secondary to bowel gas. FINDINGS: PANCREAS: Normal. The visualized pancreatic head and body are normal in appearance. The remainder of the pancreas is obscured from visualization by the overlying bowel gas. ABDOMINAL AORTA: The proximal, mid, and distal segments are normal in caliber. INFERIOR VENA CAVA: Visualized portions are normal. LIVER: Normal. The liver is normal in size. The liver contour is normal. Parenchymal echogenicity is normal. No focal hepatic lesion. There is no intrahepatic biliary duct dilatation seen. GALLBLADDER: A 1 mm nonmobile polyp is seen. The gallbladder is physiologically distended without evidence of stones, sludge, polyps, wall thickening or pericholecystic fluid. COMMON BILE DUCT: Normal in caliber measuring 0.4 cm in diameter. RIGHT KIDNEY: Normal. No hydronephrosis. No renal calculi or focal parenchymal lesions. The kidney measures 10.2 cm in maximum dimension. LEFT KIDNEY: At the upper pole, a 1.1 cm maximal diameter anechoic, simple cyst is seen. At the lower pole, an 8 mm in maximal diameter anechoic, simple cyst is seen. No hydronephrosis or renal calculi. The kidney measures 12.2 cm in maximum dimension. SPLEEN: Normal. The spleen measures 9.1 cm in maximum dimension. FREE FLUID: None. US/US abdomen complete IMPRESSION: 1. A 1 mm nonmobile polyp is incidentally seen within the gallbladder. There is no cholelithiasis, cholecystitis or choledocholithiasis. 2. Simple left renal cysts are noted. 3. Examination is technically limited by bowel gas.
== END 2022-09-02 09:01 | disposition home or self-care (01) ==
LOC: HO.US 09:00
PROVIDERS: PCP Internal Medicine; Visit Provider Internal Medicine
DX: R10.9 Unspecified abdominal pain (principal)
CPT/HCPCS: 76700

== ENCOUNTER → 2022-09-26 10:31 | Outpatient (BNVA) | payer OTHER, SELFPAY | PROVIDERS: PCP Internal Medicine; Referring Provider Internal Medicine; Visit Provider Nurse Practitioner | DX: K21.9 Gastro-esophageal reflux disease without esophagitis (principal); K59.00 Constipation, unspecified; M54.6 Pain in thoracic spine; L71.1 Rhinophyma; L71.9 Rosacea, unspecified | CPT/HCPCS: 99212 ==

== ENCOUNTER → 2022-11-21 10:28 | Outpatient (BNVA) | payer OTHER, SELFPAY | PROVIDERS: PCP Internal Medicine; Visit Provider Nurse Practitioner | DX: K21.9 Gastro-esophageal reflux disease without esophagitis (principal); K59.00 Constipation, unspecified; M54.6 Pain in thoracic spine | CPT/HCPCS: 99212 ==

== ENCOUNTER 2023-03-05 13:00 | Outpatient (AMB) | payer OTHER, SELFPAY ==
[2023-03-05 13:13] VITALS: BP 116/72; PULSE 74; O2SAT 96; BMI 33.2
--- NOTE | 2023-03-05 13:13 | A.OFFPC_ITS ---
Vital Signs 03/05/23 13:13 Height 5 ft 8 in Weight 218 lb 8 oz BMI 33.2 BP 116/72 Blood Pressure Location Lt brachial Position Sitting Pulse 74 Pulse Source Pulse Oximeter Pulse Oximetry (%) 96 Oxygen Delivery Method Room Air Intake Visit Reasons: PE Allergies No Known Allergies Allergy (Verified 03/05/23 13:14) Medication List - Last Reconciled 03/05/23 by Peggy Coyne MD famotidine (Pepcid) 40 mg PO BEDTIME 90 days metronidazole 0.75% (MetroCream) 1 appl topical BEDTIME mometasone 0.1% 1 appl topical DAILY montelukast 10 mg PO DAILY oxymetazoline 1% 1 appl topical DAILY pantoprazole 40 mg PO DAILY polyethylene glycol 3350 (Miralax) 17 grams PO .qhs 90 days Tobacco use date assessed: 03/05/23 Last assessed Fall Risk: 03/05/23 Dental Screening Dental Screen Date: 03/05/23 Did you have a dental visit in the last 12 months?: No Did you have a dental problem in the last 6 months where you did not have access to dental care?: No Was dental information given to patient?: No HPI PE HPI Details PATIENT PRESENTS FOR PHYSICAL PFSH Medical History Abdominal pain Angina pectoris Annual physical exam Chronic rhinitis COVID-19 Diverticulitis AIKEN (dyspnea on exertion) Fatigue Gastritis H. pylori infection Hyperglycemia Hyperlipidemia Kidney stones Knee pain, left Neuropathy Sciatica Vitamin D deficiency Surgical History (Updated 03/05/23 @ 13:53 by Peggy Coyne MD) H/O colonoscopy History of esophagogastroduodenoscopy (EGD) Family History Father Lung cancer Mother Stroke Social History Household Members Other:: from [facility] Housing: House Alcohol intake: never Patient Tobacco Use Status: Former Tobacco user Quit Date: 30 years ago e-Cigarette/Vaping Use: Never Used Current occupational status: employed Cognitive needs: No Hearing needs: No Vision needs: No Questionnaire Thrive Questionnaire Date Thrive assessed: 11/14/21 AUDIT C Alcohol Use Questionnaire (AUDIT-C) 1. How often do you have a drink containing alcohol?: Never 3. How often do you have six or more drinks on one occasion?: Never Total Score: 0 Score Reviewed/Action Taken: Yes ROLANDO-7 AMB Questionnaire ROLANDO-7 Date ROLANDO - 7 assessed: 11/14/21 Source: Developed by Drs. Ibrahima Llamas, Sarah Lan, Matty Murphy and colleagues, with an educational junie from [employer]. Review of Systems Const All systems reviewed & are unremarkable except as noted in HPI and below Reports no additional complaints Eyes Reports no additional complaints ENT Reports no additional complaints Card Reports no additional complaints Resp Reports no additional complaints GI Reports no additional complaints Reports no additional complaints Physical exam (Primary Care) Vital Signs: Last Vital Signs Pulse 74 03/05/23 13:13 BP 116/72 03/05/23 13:13 Pulse Ox 96 03/05/23 13:13 Oxygen Delivery Method Room Air 03/05/23 13:13 BMI result Body Mass Index 33.2 Tobacco/Smoking Status: Tobacco use Status Tobacco use date assessed 03/05/23 03/05/23 13:16 Patient Tobacco Use Status Former Tobacco user 03/05/23 13:16 e-Cigarette/Vaping Use Never Used 03/05/23 13:16 Thrive Assessment: Date of Thrive Assessment Date Thrive assessed 11/14/21 03/05/23 13:16 Const General: no acute distress HENMT Head: Yes normal to inspection Ears: hearing grossly normal bilaterally General nose exam: Normal nasal mucous membranes and turbinates present Face and sinus: Yes normal facial exam Mouth: Normal oral and palatal mucosa present Eyes General: appearance normal, both eyes and all related structures Neck Neck: Yes no lymphadenopathy and Yes supple Thyroid: diffusely enlarged Resp Effort & Inspection: normal respiratory effort Auscultation: clear to auscultation bilaterally Cardio Rhythm: regular rhythm Heart sounds: S1 normal heart sound present and S2 normal heart sound present GI Inspection: Yes normal to inspection Palpation (GI): Soft to palpation Percussion: Yes normal to percussion Auscultation: normal bowel sounds Assessment and Plan Assessment & Plan (1) Hyperlipidemia: Code(s): E78.5 - Hyperlipidemia, unspecified Plan: Continue low-cholesterol diet return for fasting blood work (2) COVID-19: Comment: hospitalized at [facility] for 1 week 06/2021, discharge home on O2, not using it for one year, [facility] fax [phone] Code(s): U07.1 - COVID-19 Plan: Patient has not been using supplemental O2 for 1 year and has been maintaining oxygen saturation above 97% ,therefore supplemental O2 should be discontinued (3) Enlarged thyroid: Code(s): E04.9 - Nontoxic goiter, unspecified Plan: Check thyroid ultrasound (4) Annual physical exam: Code(s): Z00.00 - Encounter for general adult medical examination without abnormal findings Plan: WELL-BALANCED DIET REGULAR PHYSICAL ACTIVITY DISCUSSED WITH THE PATIENT (5) GERD (gastroesophageal reflux disease): Code(s): K21.9 - Gastro-esophageal reflux disease without esophagitis Plan: Patient continues PPI and H2 haroon and follow-up with GI in the end of the year (6) H/O colonoscopy: Comment: polyps 06/2019 [facility] in [place] 3 years, 07/14/22 [facility] [place] [facility] 9 POLYPS, F/U 1 year with GI Code(s): Z98.890 - Other specified postprocedural states Plan: Follow-up with GI July (7) Hyperglycemia: Code(s): R73.9 - Hyperglycemia, unspecified Orders: Orders Comprehensive [place]. Panel Fast Today E78.5 - Hyperlipidemia, unspecified, U07.1 - COVID-19 Lipid Panel Today E78.5 - Hyperlipidemia, unspecified, U07.1 - COVID-19 Complete Blood Count no Diff Today E78.5 - Hyperlipidemia, unspecified, U07.1 - COVID-19 US thyroid Today E04.9 - Nontoxic goiter, unspecified PSA,Total (Free>4and<10) Today E78.5 - Hyperlipidemia, unspecified, U07.1 - COVID-19 UA w Microscopic Today E78.5 - Hyperlipidemia, unspecified, U07.1 - COVID-19 Hemoglobin A1c Today R73.9 - Hyperglycemia, unspecified Medications: Discontinued oxymetazoline 1% Discontinued Reason: Doctor's Order 1 appl topical DAILY 30 grams 3RF 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
== END 2023-03-05 13:55 | disposition home or self-care (01) ==
PROVIDERS: Visit Provider Internal Medicine
DX: Z00.00 Encounter for general adult medical examination without abnormal findings (principal); E04.9 Nontoxic goiter, unspecified; K21.9 Gastro-esophageal reflux disease without esophagitis; Z98.890 Other specified postprocedural states; E78.5 Hyperlipidemia, unspecified; U07.1 COVID-19; R73.9 Hyperglycemia, unspecified
CPT/HCPCS: 99396

== ENCOUNTER 2023-03-06 06:56 | Outpatient (REF) | payer OTHER, SELFPAY ==
[2023-03-06 11:23] LABS: Appearance Urine Turbid; Color Urine Dark Yellow; Glucose Urine UA Negative (Negative); Leukocyte Esterase Urine Negative (Negative); MANUAL DIFF FLAG NO; Nitrite Urine Negative (Negative); Specific Gravity - Urine >= 1.030 (1.005-1.025); Urine Blood Negative (Negative); Urine Ketones Trace mg/dL (Negative); Urine Protein Trace mg/dL (Neg-Trace)
[2023-03-06 11:29] LABS: Bacteria Urine None Seen (None Seen); Squamous Epithelial Cell Urine 0-2 /HPF (0-2); WBC Urine 0-5 /HPF (0-5)
[2023-03-06 11:40] LABS: Basophils Absolute Auto 0.1 X10*3/uL (0.0-0.2); Basophils Percent Auto 0.8 % (0-2); Eosinophils Absolute Auto 0.3 X10*3/uL (0.0-0.4); Eosinophils Percent Auto 4.2 % (0-4); Hematocrit 38.7 % (42.0-52.0); Imm Gran Abs Auto 0.01 X10*3/uL (0.00-0.03); Imm Gran Pct Auto 0.1 % (0.0-0.4); Mean Corpuscular HGB Conc 33.6 g/dl (31.0-36.0); Mean Corpuscular Hemoglobin 30.9 pg (27.0-33.0); Mean Corpuscular Volume 91.9 fL (80.0-98.0); Mean Platelet Volume 10.3 fL (9.4-12.4); Monocytes Absolute Auto 0.5 X10*3/uL (0.1-1.2); Monocytes Percent Auto 6.3 % (2-11); Neutrophils Absolute Auto 2.8 x10*3/uL (2.0-8.3); Neutrophils Percent Auto 36.6 % (45-73); Platelet Count 248 X10*3/uL (160-400); Red Blood Count 4.21 X10*6/uL (4.60-5.80); White Blood Count 7.7 X10*3/uL (4.8-10.8)
[2023-03-06 13:43] LABS: Estimated Average Glucose 111 mg/dL; Hemoglobin A1c % 5.5 %
[2023-03-06 14:57] LABS: Alanine Aminotransferase 19 U/L (0-40); Albumin Level 4.1 g/dL (3.5-5.0); Alkaline Phosphatase 49 U/L (39-117); Anion Gap 14 (12-20); Aspartate Amino Transferase 23 U/L (5-37); Bilirubin Total 0.4 mg/dL (0.0-1.0); Blood Urea Nitrogen 23 mg/dL (9-16); Carbon Dioxide 24 mmol/L (22-29); Chloride 108 mmol/L (96-108); Cholesterol 200 mg/dL; Estimated Glomerular Filt Rate > 60; Glucose Fasting 108 mg/dL (60-99); HDL Cholesterol 55 mg/dL; LDL Cholesterol Calculated 129 mg/dl; Potassium 3.8 mmol/L (3.3-5.1); Sodium 142 mmol/L (135-145); Triglycerides 80 mg/dL
[2023-03-06 15:28] LABS: PSA,Total (Free>4and<10) 0.64 ng/mL (0.00-4.00)
== END 2023-03-06 06:57 | disposition home or self-care (01) ==
LOC: HO.HMGCLDS 06:56
PROVIDERS: PCP Internal Medicine; Visit Provider Internal Medicine
DX: Z12.5 Encounter for screening for malignant neoplasm of prostate (principal); R73.9 Hyperglycemia, unspecified; E78.5 Hyperlipidemia, unspecified; U07.1 COVID-19
CPT/HCPCS: 36415; 80053; 80061; 81001; 83036; 84153; 85025; 85027

== ENCOUNTER 2023-03-25 10:54 | Outpatient (AMB) | payer OTHER, SELFPAY ==
[2023-03-25 10:55] VITALS: BP 133/89; PULSE 73; O2SAT 96; BMI 33.6
--- NOTE | 2023-03-25 10:55 | MHC.OFFVIS ---
Intake Vital Signs 03/25/23 10:55 Height 5 ft 8 in Weight 220 lb 14.451 oz BMI 33.6 BP 133/89 Blood Pressure Location Rt brachial Position Sitting Pulse 73 Pulse Source Pulse Oximeter Pulse Oximetry (%) 96 Oxygen Delivery Method Room Air Intake Visit Reasons: 4 month fu Intake Note: Pt presents to the office today for a 4 month follow up. Pt denies any NVD. Pt states after eating he gets acid reflux but the pantoprazole does seem to help a bit. [employer] Consultant Required: Yes [employer] Consultant Name: Parminder [id number] Allergies No Known Allergies Allergy (Verified 03/25/23 10:59) HPI 4 month fu HPI Details Assessment & Plan (1) GERD (gastroesophageal reflux disease): ?Code(s): K21.9 - Gastro-esophageal reflux disease without esophagitis ?Plan: Algerian #[id number], Lele He is moving his bowels well with the Miralax. He has been having pain in the upper laryngeal area and a globus sensation. He has been adherent to the pantoprazole qam, we will add famotidine qhs. He has not been getting the momentasone cream will call pharmacy to see if he can get it.? This is further rosacea of his nose. He wants to go for the xray.? I let him know this is a walk-in exam a we do not schedule it for him so he can go at any time.? This is because he has been complaining of back pain. ROV 4 mos (2) Constipation: ?Code(s): K59.00 - Constipation, unspecified (3) Thoracic back pain: ?Code(s): M54.6 - Pain in thoracic spine ? ? ? Medications: New famotidine (Pepcid ) 40 mg? PO BEDTIME 90 days 90 tabs 1R F ? ? Refilled pantoprazole 40 mg? PO DAILY 90 tabs 2RF ? ? polyethylene glyco l 3350 (Miralax) 17 grams? PO .qhs 90 days 10,530 gra ms 1RF K59.00 - Constipat ion, unspecified ? mometasone 0.1% 1 appl? 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 metronidazole 0.75 % (MetroCream) 1 appl? topical BE DTIME 45 grams 4RF ? ? mometasone 0.1% 1 appl? 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 XR THRORACIC SPINE Not obtained CORRESPONDENCE On 11/21/22 @ 15:20 Xiao Wolf Wrote To [place] Per pharmacist Pt has been getting it but. He last picked it up on October 29. On 11/21/22 @ 11:12 [place] Wrote To Xiao Wolf Please call his pharmacy and see why he is not getting the mometasone cream. 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 He says I think my thyroid is growing bigger. He has an US of the thyroid ordered by his PCP. I think he should have a referral to ear nose throat to investigate the laryngeal area as well since his EGD recently was unremarkable. HE really notices gastric pain if he forgets his pantoprazole and he feels it is working. He also takes famotidine. He feels the miralax is working well to keep this bowels moving. I remind him of the thoracic xray. He says he forgot. ROV 6 mos. PFSH Medical History Abdominal pain Angina pectoris Annual physical exam Chronic rhinitis COVID-19 Diverticulitis AIKEN (dyspnea on exertion) Fatigue Gastritis H. pylori infection Hyperglycemia Hyperlipidemia Kidney stones Knee pain, left Neuropathy Sciatica Vitamin D deficiency Surgical History H/O colonoscopy History of esophagogastroduodenoscopy (EGD) Family History Father Lung cancer Mother Stroke Social History Household Members Other:: from [facility] Housing: House Alcohol intake: never Patient Tobacco Use Status: Former Tobacco user Quit Date: 30 years ago e-Cigarette/Vaping Use: Never Used Current occupational status: employed Cognitive needs: No Hearing needs: No Vision needs: No Review of Systems Const Denies fatigue, Denies fever(s), Denies night sweats, Denies poor appetite and Denies weight loss ENT Reports Normal hearing present, Denies dental pain, Reports dysphagia, Denies hearing loss, Denies mouth pain, Reports odynophagia, Denies throat swelling and Denies tongue swelling Card Reports no additional complaints Resp Reports no additional complaints GI Denies abdominal pain, Denies melena, Denies bloating, Denies hematochezia, Reports constipation, Denies GI cramping, Reports dysphagia, Denies excessive flatus, Denies early satiety, Reports heartburn, Denies diarrhea, Denies nausea, Reports odynophagia, Denies vomiting and Denies hematemesis Musc Reports back pain Skin/Breast Denies pruritus, Denies lesions, Denies rash and Denies jaundice Neuro Reports Normal hearing present and Denies Abnormal speech present Endo Denies fatigue Aller/Immun Denies throat swelling and Denies tongue swelling Physical Exam Vital Signs: Last Vital Signs Pulse 73 03/25/23 10:55 BP 133/89 03/25/23 10:55 Pulse Ox 96 03/25/23 10:55 Oxygen Delivery Method Room Air 03/25/23 10:55 BMI result Body Mass Index 33.6 Const General: cooperative, no acute distress, well developed and well groomed Nutritional Appearance: well nourished and obese centrally obese Orientation/consciousness: oriented to person, oriented to place and oriented to time Limitations: language barrier HEENT Head: Yes normocephalic and Yes atraumatic Eyes General: appearance normal, both eyes and all related structures Pupils: Equal, round and reactive pupils present Neck Neck: Yes normal visual inspection and Yes no lymphadenopathy Thyroid: Thyroid normal Resp Effort & Inspection: normal respiratory effort and able to speak in complete sentences Auscultation: clear to auscultation bilaterally Cardio Rate: regular rate Rhythm: regular rhythm Heart sounds: Normal, physiologic split S2 sound present Peripheral pulses: radial pulses present and posterior tibial pulses present GI Inspection: No distended, No Abdominal panniculus present and Yes obesity Palpation (GI): Soft to palpation, nontender, no guarding, not rigid and No hepatosplenomegaly present Percussion: Yes normal to percussion Auscultation: normal bowel sounds Rectal Exam - Male: Yes deferred Skin General skin exam: no rashes or lesions noted, turgor normal, skin not dry, no jaundice, No spider nevi and no striae Rashes: no rashes Nails: normal Neuro General: oriented to person, oriented to place and oriented to time Cranial nerves: Yes Equal, round and reactive pupils present and Yes Normal hearing present Speech: No Abnormal speech present Extrem General: Yes normal to inspection, No clubbing, No cyanosis and No edema Psych Appearance: grossly normal and well kempt Mental Status: mental status grossly normal Speech and movement: Normal speech and movement present Affect: normal affect Attitude: cooperative Thought process: Normal thought process present and not confabulating Thought content: Normal thought content present Insight: Limited insight present (Psych) Judgement: Limited judgement present (Psych) Assessment & Plan Assessment & Plan (1) Oropharyngeal dysphagia: Code(s): R13.12 - Dysphagia, oropharyngeal phase 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 He says I think my thyroid is growing bigger. He has an US of the thyroid ordered by his PCP. I think he should have a referral to ear nose throat to investigate the laryngeal area as well since his EGD recently was unremarkable. HE really notices gastric pain if he forgets his pantoprazole and he feels it is working. He also takes famotidine. He feels the miralax is working well to keep this bowels moving. I remind him of the thoracic xray. He says he forgot. We will need to discuss a repeat colonoscopy at his next visit given his history of multiple polyps on the last in 2021. ROV 6 mos. (2) GERD (gastroesophageal reflux disease): Code(s): K21.9 - Gastro-esophageal reflux disease without esophagitis (3) Gastritis: Code(s): K29.70 - Gastritis, unspecified, without bleeding Orders: Referrals Pediatric Otolaryngology Referral R13.12 - Dysphagia, oropharyngeal phase Ear/Nose/Throat Referral R13.12 - Dysphagia, oropharyngeal phase Medications: Refilled pantoprazole 40 mg PO DAILY 90 tabs 2RF famotidine (Pepcid) 40 mg PO BEDTIME 90 days 90 tabs 1RF polyethylene glycol 3350 (Miralax) 17 grams PO .qhs 90 days 10,530 grams 1RF K59.00 - Constipation, unspecified Coding Level of Care Code Est Pt Level 3 (79716) Diagnoses Oropharyngeal dysphagia R13.12 GERD (gastroesophageal reflux disease) K21.9 Gastritis K29.70
== END 2023-03-25 12:49 | disposition home or self-care (01) ==
PROVIDERS: Visit Provider Nurse Practitioner
DX: R13.12 Dysphagia, oropharyngeal phase (principal); K21.9 Gastro-esophageal reflux disease without esophagitis; K29.70 Gastritis, unspecified, without bleeding
CPT/HCPCS: 99213

== ENCOUNTER → 2023-03-25 10:54 | Outpatient (BNVA) | payer OTHER, SELFPAY | PROVIDERS: Visit Provider Nurse Practitioner | DX: K21.9 Gastro-esophageal reflux disease without esophagitis (principal); R13.12 Dysphagia, oropharyngeal phase; K29.70 Gastritis, unspecified, without bleeding | CPT/HCPCS: 99212 ==

== ENCOUNTER 2023-04-13 09:55 | Outpatient (REF) | payer OTHER, SELFPAY ==
--- NOTE | ~2023-04-13 | US_ITS ---
EXAMINATION: US THYROID CLINICAL INFORMATION: Nontoxic goiter, unspecified. COMPARISON: Ultrasound thyroid 10/19/2019. TECHNIQUE: Linear transducer ramachandran-scale and color Doppler examination with attention to the region of the thyroid. FINDINGS: SIZE: Measurements of the thyroid lobes and nodules are given in sagittal, anteroposterior and transverse dimensions respectively. Right Thyroid Lobe: 5.2 x 1.9 x 1.9 cm, volume 9.8 mL. Previously 4.8 x 1.8 x 1.6 cm, volume 7.4 mL. Parenchyma: The gland echotexture is homogeneous. Thyroid vascularity is normal. Left Thyroid Lobe: 4.4 x 1.4 x 1.8 cm, volume 5.8 mL. Previously 4.2 x 1.9 x 1.5 cm, volume 6.2 mL. Parenchyma: The gland echotexture is homogeneous. Thyroid vascularity is normal. Isthmus: 0.3 cm in maximum AP dimension. Previously 0.3 cm. No focal thyroid nodule is seen. NODES: No lymphadenopathy is seen in the tissue surrounding the thyroid gland. US/US thyroid IMPRESSION: Unremarkable thyroid ultrasound.
== END 2023-04-13 09:56 | disposition home or self-care (01) ==
LOC: HO.HMGCX 09:55
PROVIDERS: PCP Internal Medicine; Visit Provider Internal Medicine
DX: E04.9 Nontoxic goiter, unspecified (principal)
CPT/HCPCS: 76536

== ENCOUNTER 2023-08-28 12:04 | Outpatient (AMB) | payer OTHER, SELFPAY ==
[2023-08-28 12:05] VITALS: BP 128/80; PULSE 67; O2SAT 95; BMI 34.5
--- NOTE | 2023-08-28 12:05 | A.OFFPC_ITS ---
Vital Signs 08/28/23 12:05 Height 5 ft 8 in Weight 227 lb BMI 34.5 BP 128/80 Blood Pressure Location Lt brachial Position Sitting Pulse 67 Pulse Source Pulse Oximeter Pulse Oximetry (%) 95 Oxygen Delivery Method Room Air Intake Visit Reasons: Cough Follow Up Intake Note: Pt is here today for a follow up visit on cough. Allergies No Known Allergies Allergy (Verified 08/28/23 12:08) Medication List - Last Reconciled 08/28/23 by Peggy Coyne MD famotidine (Pepcid) 40 mg PO BEDTIME 90 days metronidazole 0.75% (MetroCream) 1 appl topical BEDTIME mometasone 0.1% 1 appl topical DAILY montelukast 10 mg PO DAILY pantoprazole 40 mg PO DAILY polyethylene glycol 3350 (Miralax) 17 grams PO .qhs 90 days Tobacco use date assessed: 08/28/23 Fall risk assessment: No Falls in past year Last assessed Fall Risk: 08/28/23 Dental Screening Dental Screen Date: 08/28/23 Did you have a dental visit in the last 12 months?: Yes Did you have a dental problem in the last 6 months where you did not have access to dental care?: No Was dental information given to patient?: Patient has dentist HPI Cough Follow Up HPI Details Pt presents c/o chronic constipation and epigastric abd discomfort and intermittent left-sided chest pain and pressure on and off lasting afew hours at the time not related to physical activity. Patient had negative EGD in July 25 and colonoscopy in 2021. Patient has been taking pantoprazole without significant improvement. He has not been physically active. Patient denies shortness of breath palpitations. He had negative stress test in 11/22. FORMERLY [facility], [facility] Medical History Knee pain, left Angina pectoris Hyperlipidemia AIKEN (dyspnea on exertion) COVID-19 Vitamin D deficiency Hyperglycemia Fatigue Sciatica Neuropathy H. pylori infection Gastritis Diverticulitis Annual physical exam Abdominal pain Chronic rhinitis Kidney stones Surgical History History of esophagogastroduodenoscopy (EGD) H/O colonoscopy Family History Father Lung cancer Mother Stroke Social History Household Members Other:: from [facility] Housing: House Alcohol intake: never Patient Tobacco Use Status: Former Tobacco user Quit Date: 30 years ago e-Cigarette/Vaping Use: Never Used Current occupational status: employed Cognitive needs: No Hearing needs: No Vision needs: No Questionnaire PHQ-9 Over the last 2 weeks, how often have you been bothered by any of the following problems? 1. Little interest or pleasure in doing things: not at all 2. Feeling down, depressed, or hopeless: not at all 3. Trouble falling or staying asleep, or sleeping too much: several days 4. Feeling tired or having little energy: not at all 5. Poor appetite or overeating: not at all 6. Feeling bad about yourself - or that you are a failure or have let yourself or your family down: not at all 7. Trouble concentrating on things, such as reading the newspaper or watching television: not at all 8. Moving or speaking so slowly that other people could have noticed. Or the opposite - being so fidgety or restless that you have been moving around a lot more than usual: not at all 9. Thoughts that you would be better off or of hurting yourself in some way: not at all Total score: 1 Depression Screening Interpretation: Negative Depression Screening Done: Yes [id number] - PHQ-9 Billing: Yes Source: Developed by Drs. Ibrahima Llamas, Sarah Lan, Matty Murphy and colleagues, with an educational junie from [employer]. Thrive Questionnaire Date Thrive assessed: 08/28/23 I am a: Patient What is your living situation today?: I have a steady place to live Within the past 12 months, did the food you bought not last and you didn't have the money to get more?: Never true Within the past 12 months, did you worry whether your food would run out before you got money to buy more?: Never true Do you have trouble paying for medicines?: No Do you have trouble getting transportation to medical appointments?: No Do you have trouble paying your heating and electricity bill?: No Do you have trouble taking care of your child, family member or friend?: No Do you have trouble with day-to-day activities such as bathing, preparing meals, shopping, managing finances, etc.?: No Are you currently unemployed and looking for a job?: No Are you interested in more education?: No Please select the resources that you would like help with: None Currently or been in a relationship where the following occur: no concerns reported THRIVE Score: 0 AUDIT C Alcohol Use Questionnaire (AUDIT-C) 1. How often do you have a drink containing alcohol?: Never 3. How often do you have six or more drinks on one occasion?: Never Total Score: 0 Score Reviewed/Action Taken: Yes ROLANDO-7 AMB Questionnaire ROLANDO-7 Date ROLANDO - 7 assessed: 08/28/23 Feeling nervous, anxious, or on edge: 0 = Not at all Not being able to stop or control worryin = Not at all Worrying too much about different things: 0 = Not at all Trouble relaxin = Not at all Being so restless that it is hard to sit still: 0 = Not at all Becoming easily annoyed or irritable: 0 = Not at all Feeling afraid as if something awful might happen: 0 = Not at all Total ROLANDO-7 score (0-4 normal; 5-9 mild; 10-14 moderate; 15-21 severe): 0 Source: Developed by Drs. Ibrahima Llamas, Sarah Lan, Matty Murphy and colleagues, with an educational junie from [employer]. Review of Systems Const All systems reviewed & are unremarkable except as noted in HPI and below Reports no additional complaints Eyes Reports no additional complaints ENT Reports no additional complaints Card Reports no additional complaints Resp Reports no additional complaints GI Reports no additional complaints Reports no additional complaints Physical exam (Primary Care) Vital Signs: Last Vital Signs Pulse 67 08/28/23 12:05 BP 128/80 08/28/23 12:05 Pulse Ox 95 08/28/23 12:05 Oxygen Delivery Method Room Air 08/28/23 12:05 BMI result Body Mass Index 34.5 Tobacco/Smoking Status: Tobacco use Status Tobacco use date assessed 08/28/23 08/28/23 12:09 Patient Tobacco Use Status Former Tobacco user 08/28/23 12:09 e-Cigarette/Vaping Use Never Used 08/28/23 12:09 PHQ-9: PHQ-9 Score PHQ-9: Total score 1 08/28/23 12:49 Depression Screening Interpretation: Negative Thrive Assessment: Date of Thrive Assessment Date Thrive assessed 08/28/23 08/28/23 12:09 Currently or been in a relationship where the following occur: no concerns reported Const General: no acute distress HENMT Face and sinus: Yes normal facial exam Eyes General: appearance normal, both eyes and all related structures Neck Neck: Yes no lymphadenopathy and Yes supple Resp Effort & Inspection: normal respiratory effort Auscultation: clear to auscultation bilaterally Cardio Rhythm: regular rhythm Heart sounds: S1 normal heart sound present and S2 normal heart sound present GI Inspection: Yes normal to inspection Palpation (GI): Soft to palpation Percussion: Yes normal to percussion Auscultation: normal bowel sounds Assessment and Plan Assessment & Plan (1) Allergic rhinitis: Comment: Chronic allergic rhinitis some improvement on montelukast Code(s): J30.9 - Allergic rhinitis, unspecified Plan: Restart montelukast the patient will be referred to crepe sole scourer (2) Hyperlipidemia: Code(s): E78.5 - Hyperlipidemia, unspecified Plan: Continue low-cholesterol diet, patient is interested in obtaining CT coronary calcium score (3) Hyperglycemia: Code(s): R73.9 - Hyperglycemia, unspecified Plan: Continue ADA diet return for fasting blood work (4) Vitamin D deficiency: Code(s): E55.9 - Vitamin D deficiency, unspecified Orders: Orders TSH reflex Free T4 Today E04.9 - Nontoxic goiter, unspecified, E55.9 - Vitamin D deficiency, unspecified, E78.5 - Hyperlipidemia, unspecified, R73.9 - Hyperglycemia, unspecified CT Coronary Calcium Score Today Hemoglobin A1c Today R73.9 - Hyperglycemia, unspecified Complete Blood Count Auto Diff Today E04.9 - Nontoxic goiter, unspecified, E55.9 - Vitamin D deficiency, unspecified, E78.5 - Hyperlipidemia, unspecified, R73.9 - Hyperglycemia, unspecified Comprehensive [place]. Panel Fast Today E04.9 - Nontoxic goiter, unspecified, E55.9 - Vitamin D deficiency, unspecified, E78.5 - Hyperlipidemia, unspecified, R73.9 - Hyperglycemia, unspecified Lipid Panel Today E04.9 - Nontoxic goiter, unspecified, E55.9 - Vitamin D deficiency, unspecified, E78.5 - Hyperlipidemia, unspecified, R73.9 - Hyperglycemia, unspecified Referrals Allergy & Immunology Referral J30.9 - Allergic rhinitis, unspecified Medications: Refilled montelukast 10 mg PO DAILY 90 tabs 3RF Coding Level of Care Code Est Pt Level 4 (14795) Diagnoses Allergic rhinitis J30.9 Hyperlipidemia E78.5 Hyperglycemia R73.9 Vitamin D deficiency E55.9
== END 2023-08-28 15:21 | disposition home or self-care (01) ==
PROVIDERS: PCP Internal Medicine; Visit Provider Internal Medicine
DX: J30.9 Allergic rhinitis, unspecified (principal); E78.5 Hyperlipidemia, unspecified; R73.9 Hyperglycemia, unspecified; E55.9 Vitamin D deficiency, unspecified
CPT/HCPCS: 99214

== ENCOUNTER 2023-08-28 13:03 | Outpatient (REF) | payer OTHER, SELFPAY ==
[2023-08-28 16:19] LABS: MANUAL DIFF FLAG NO
[2023-08-28 16:26] LABS: Basophils Absolute Auto 0.1 X10*3/uL (0.0-0.2); Basophils Percent Auto 0.6 % (0-2); Eosinophils Absolute Auto 0.2 X10*3/uL (0.0-0.4); Eosinophils Percent Auto 1.9 % (0-4); Hematocrit 41.9 % (42.0-52.0); Imm Gran Abs Auto 0.01 X10*3/uL (0.00-0.03); Imm Gran Pct Auto 0.1 % (0.0-0.4); Lymphocytes Absolute Auto 4.8 X10*3/uL (1.2-4.9); Lymphocytes Percent Auto 55.7 % (20-40); Mean Corpuscular HGB Conc 33.4 g/dl (31.0-36.0); Mean Corpuscular Volume 92.7 fL (80.0-98.0); Mean Platelet Volume 10.6 fL (9.4-12.4); Monocytes Absolute Auto 0.5 X10*3/uL (0.1-1.2); Monocytes Percent Auto 5.7 % (2-11); Neutrophils Absolute Auto 3.1 x10*3/uL (2.0-8.3); Platelet Count 260 X10*3/uL (160-400); Red Blood Count 4.52 X10*6/uL (4.60-5.80); Red Cell Distribution Width 12.8 % (11.0-16.0); White Blood Count 8.5 X10*3/uL (4.8-10.8)
[2023-08-28 16:47] LABS: Alanine Aminotransferase 18 U/L (0-40); Albumin Level 4.4 g/dL (3.5-5.0); Alkaline Phosphatase 53 U/L (39-117); Anion Gap 13 (12-20); Aspartate Amino Transferase 20 U/L (5-37); Bilirubin Total 0.6 mg/dL (0.0-1.0); Blood Urea Nitrogen 28 mg/dL (9-16); Calcium 9.6 mg/dL (8.4-10.2); Carbon Dioxide 26 mmol/L (22-29); Chloride 108 mmol/L (96-108); Cholesterol 234 mg/dL (<200); Estimated Glomerular Filt Rate > 60; Glucose Fasting 95 mg/dL (60-99); HDL Cholesterol 56 mg/dL (>40); LDL Cholesterol Calculated 162 mg/dL (<100); Potassium 4.4 mmol/L (3.3-5.1); Sodium 143 mmol/L (135-145); Total Protein 7.7 g/dL (6.5-8.0); Triglycerides 84 mg/dL (<150)
[2023-08-28 17:03] LABS: TSH reflex Free T4 0.79 uIU/mL (0.32-4.0)
== END 2023-08-28 13:04 | disposition home or self-care (01) ==
LOC: HO.HMGCLDS 13:03
PROVIDERS: PCP Internal Medicine; Visit Provider Internal Medicine
DX: E04.9 Nontoxic goiter, unspecified (principal); E78.5 Hyperlipidemia, unspecified; R73.9 Hyperglycemia, unspecified; E55.9 Vitamin D deficiency, unspecified
CPT/HCPCS: 36415; 80053; 80061; 84443; 85025

== ENCOUNTER 2023-09-23 10:45 | Outpatient (AMB) | payer OTHER, SELFPAY ==
--- NOTE | 2023-09-23 10:49 | MHC.OFFVIS ---
Intake Vital Signs 09/23/23 10:57 Height 5 ft 8 in Weight 224 lb 13.944 oz BMI 34.2 BP 130/78 Blood Pressure Location Rt brachial Position Sitting Pulse 66 Intake Visit Reasons: 6 month follow up Intake Note: Pt presents to the office today for a 6 month follow up of GERD. 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 He says I think my thyroid is growing bigger. He has an US of the thyroid ordered by his PCP. I think he should have a referral to ear nose throat to investigate the laryngeal area as well since his EGD recently was unremarkable. HE really notices gastric pain if he forgets his pantoprazole and he feels it is working. He also takes famotidine. He feels the miralax is working well to keep this bowels moving. I remind him of the thoracic xray. He says he forgot. We will need to discuss a repeat colonoscopy at his next visit given his history of multiple polyps on the last in 2021. ROV 6 mos. (2) GERD (gastroesophageal reflux disease): Code(s): K21.9 - Gastro-esophageal reflux disease without esophagitis (3) Gastritis: Code(s): K29.70 - Gastritis, unspecified, without bleeding Orders: Referrals Pediatric Otolaryn gology Referral R13.12 - Dysphagia , oropharyngeal ph ase Ear/Nose/Throat Re ferral R13.12 - Dysphagia , oropharyngeal ph ase Medications: Refilled pantoprazole 40 mg PO DAILY 90 tabs 2RF famotidine (Pepcid ) 40 mg PO BEDTIME 90 days 90 tabs 1R F polyethylene glyco l 3350 (Miralax) 17 grams PO .qhs 90 days 10,530 gra ms 1RF K59.00 - Constipat ion, unspecified XR THRORACIC SPINE Not obtained TODAY'S VISIT Croatian #[id number] He continues to do well on his GI medicines. I ask about his hx of colon polyps with his last scope in 2021 at [facility]. He is agreeable to a repeat colonoscopy. The only new health problems is high cholesterol, he denies any current or ongoing respiratory or cardiac problems. There are no prior problems with anesthesia or sedation. There are no infectious disease problems. Again, he has a history of multiple polyposis his last scope by Dr. Koroma in 2021. ROV 6 mos and after procedure PFSH Medical History Hx of Helicobacter infection Annual physical exam Knee pain, left Angina pectoris Hyperlipidemia AIKEN (dyspnea on exertion) COVID-19 Vitamin D deficiency Hyperglycemia Fatigue Sciatica Neuropathy H. pylori infection Gastritis Diverticulitis Abdominal pain Chronic rhinitis Kidney stones Surgical History History of esophagogastroduodenoscopy (EGD) H/O colonoscopy Family History Father Lung cancer Mother Stroke Social History Household Members Other:: from [facility] Housing: House Alcohol intake: never Patient Tobacco Use Status: Former Tobacco user Quit Date: 30 years ago e-Cigarette/Vaping Use: Never Used Current occupational status: employed Cognitive needs: No Hearing needs: No Vision needs: No Review of Systems Const Denies fatigue, Denies fever(s), Denies night sweats, Denies poor appetite and Denies weight loss ENT Reports Normal hearing present, Denies dental pain, Denies dysphagia, Denies hearing loss, Denies mouth pain, Denies odynophagia, Denies throat swelling, Denies tongue swelling and Reports other (Dentition adequate) Card Reports no additional complaints Resp Reports no additional complaints GI Details: Denies abdominal pain, Denies melena, Denies bloating, Denies hematochezia, Denies constipation, Denies GI cramping, Denies dysphagia, Denies excessive flatus, Denies early satiety, Reports heartburn, Denies diarrhea, Denies nausea, Denies odynophagia, Denies vomiting and Denies hematemesis Skin/Breast Denies pruritus, Denies lesions, Denies rash and Denies jaundice Neuro Reports Normal hearing present and Denies Abnormal speech present Endo Denies fatigue Aller/Immun Denies throat swelling and Denies tongue swelling Physical Exam Vital Signs: Last Vital Signs Pulse 66 09/23/23 10:57 BP 130/78 09/23/23 10:57 BMI result Body Mass Index 34.2 Const General: cooperative, no acute distress, well developed and well groomed Nutritional Appearance: well nourished and obese Orientation/consciousness: oriented to person, oriented to place and oriented to time Limitations: language barrier HEENT Head: Yes normocephalic and Yes atraumatic Eyes General: appearance normal, both eyes and all related structures Pupils: Equal, round and reactive pupils present Neck Neck: Yes normal visual inspection and Yes no lymphadenopathy Thyroid: Thyroid normal Resp Effort & Inspection: normal respiratory effort and able to speak in complete sentences Auscultation: clear to auscultation bilaterally Cardio Rate: regular rate Rhythm: regular rhythm Heart sounds: Normal, physiologic split S2 sound present Peripheral pulses: radial pulses present and posterior tibial pulses present GI Inspection: No distended, No Abdominal panniculus present and Yes obesity Palpation (GI): Soft to palpation, nontender, no guarding, not rigid and No hepatosplenomegaly present Percussion: Yes normal to percussion Auscultation: normal bowel sounds Rectal Exam - Male: Yes deferred Skin General skin exam: no rashes or lesions noted, turgor normal, skin not dry, no jaundice, No spider nevi and no striae Rashes: no rashes Nails: normal Neuro General: oriented to person, oriented to place and oriented to time Cranial nerves: Yes Equal, round and reactive pupils present and Yes Normal hearing present Speech: No Abnormal speech present Extrem General: Yes normal to inspection, No clubbing, No cyanosis and No edema Psych Appearance: grossly normal and well kempt Mental Status: mental status grossly normal Speech and movement: Normal speech and movement present Affect: normal affect Attitude: cooperative Thought process: Normal thought process present and not confabulating Thought content: Normal thought content present Insight: Fair insight present (Psych) Judgement: Fair judgement present (Psych) Results Reviewed Results Reviewed: Laboratory Tests 08/28/23 13:06 WBC 8.5 RBC 4.52 L Hgb 14.0 Hct 41.9 L Plt Count 260 Estimated GFR > 60 Total Bilirubin 0.6 AST 20 ALT 18 Alkaline Phosphatase 53 TSH 0.79 Assessment & Plan Assessment & Plan (1) Oropharyngeal dysphagia: Code(s): R13.12 - Dysphagia, oropharyngeal phase (2) Constipation: Code(s): K59.00 - Constipation, unspecified (3) Abdominal pain: Comment: RUQ abd pain Code(s): R10.9 - Unspecified abdominal pain (4) GERD (gastroesophageal reflux disease): Code(s): K21.9 - Gastro-esophageal reflux disease without esophagitis (5) Tubular adenoma of colon: Comment: Multiple adenomas 9 on 2021 scope, also had multiple lost 2019 scope [facility] Code(s): D12.6 - Benign neoplasm of colon, unspecified (6) Pre-op examination: Code(s): Z01.818 - Encounter for other preprocedural examination Plan Croatian #[id number] He continues to do well on his GI medicines. I ask about his hx of colon polyps with his last scope in 2021 at [facility]. He is agreeable to a repeat colonoscopy. The only new health problems is high cholesterol, he denies any current or ongoing respiratory or cardiac problems. There are no prior problems with anesthesia or sedation. There are no infectious disease problems. Again, he has a history of multiple polyposis his last scope by Dr. Koroma in 2021. ROV 6 mos and after procedure Orders: Orders Colonoscopy - GI Use Only Today Z01.818 - Encounter for other preprocedural examination Medications: New peg 3350-electrolytes 236-22.74-6.74 -5.86 gram (Golytely) until fecal effluent is clear; do not exceed a total volume of 2,000 mL 240 mL PO Q10M 1 day 4,000 mL 0RF Z12.11 - Encounter for screening for malignant neoplasm of colon bisacodyl (Dulcolax (bisacodyl)) 10 mg (2 x 5 mg) PO BEDTIME 2 days 4 tabs 0RF Coding Level of Care Code Est Pt Level 4 (04897) Diagnoses Oropharyngeal dysphagia R13.12 Constipation K59.00 Abdominal pain R10.9 GERD (gastroesophageal reflux disease) K21.9 Tubular adenoma of colon D12.6 Pre-op examination Z01.818 Time Spent (min) 40
[2023-09-23 10:57] VITALS: BP 130/78; PULSE 66; BMI 34.2
== END 2023-09-23 11:21 | disposition home or self-care (01) ==
PROVIDERS: PCP Internal Medicine; Visit Provider Nurse Practitioner
DX: R13.12 Dysphagia, oropharyngeal phase (principal); K59.00 Constipation, unspecified; R10.9 Unspecified abdominal pain; K21.9 Gastro-esophageal reflux disease without esophagitis; D12.6 Benign neoplasm of colon, unspecified; Z01.818 Encounter for other preprocedural examination
CPT/HCPCS: 99214

== ENCOUNTER → 2023-09-23 10:45 | Outpatient (BNVA) | payer OTHER, SELFPAY | PROVIDERS: PCP Internal Medicine; Visit Provider Nurse Practitioner ==

== ENCOUNTER 2024-03-23 11:17 | Outpatient (REF) | payer MEDICARE, SELFPAY ==
--- NOTE | ~2024-03-23 | XR_ITS ---
EXAMINATION: XR ABDOMEN WITH DECUBITUS VIEWS CLINICAL INDICATION: Unspecified abdominal pain. COMPARISON: CT abdomen 11/05/2020. TECHNIQUE: Erect and supine frontal views of the abdomen. FINDINGS: No pneumoperitoneum. Nonobstructive bowel gas pattern. Moderate amount of stool throughout the colon. 3 mm possible right kidney stone. Mild degenerative changes in the lumbar spine and hips. XR/XR abdomen w decubitus IMPRESSION: Possible 3 mm right kidney stone. Moderate colonic stool burden. No evidence of obstruction. Electronically signed by: Ulises Juarez MD 04/11/2024 01:20 PM EDT
--- NOTE | ~2024-03-23 | XR_ITS ---
EXAMINATION: XR THORACIC SPINE CLINICAL INFORMATION: Unspecified abdominal pain COMPARISON: None available. TECHNIQUE: 3 views of the thoracic spine were obtained. FINDINGS: Minimal S-shaped scoliosis. Vertebral body heights are maintained. Minimal degenerative changes in the thoracic spine. Paraspinous lines appear normal. The included lungs are clear. XR/XR thoracic spine 2V IMPRESSION: Mild scoliosis. Mild degenerative changes. No compression fracture. Electronically signed by: Ulises Juarez MD 04/11/2024 01:17 PM EDT
== END 2024-03-23 11:18 | disposition home or self-care (01) ==
LOC: HO.XRAY 11:17
PROVIDERS: PCP Internal Medicine; Visit Provider Nurse Practitioner
DX: Z01.818 Encounter for other preprocedural examination (principal); R10.9 Unspecified abdominal pain; K29.70 Gastritis, unspecified, without bleeding; D12.6 Benign neoplasm of colon, unspecified; K21.9 Gastro-esophageal reflux disease without esophagitis; K59.04 Chronic idiopathic constipation
CPT/HCPCS: 72070; 74021; 99212

== ENCOUNTER 2024-03-23 11:17 | Outpatient (AMB) | payer MEDICARE, SELFPAY ==
[2024-03-23 11:18] VITALS: BP 132/80; PULSE 70
--- NOTE | 2024-03-23 11:18 | A.OFFVIS_ITS ---
Vital Signs 03/23/24 11:18 Height 5 ft 8 in BP 132/80 Blood Pressure Location Lt brachial Position Sitting Pulse 70 Intake Visit Reasons: 6 month follow up Intake Note: Bert presents to in office 6 months follow up of GERD. CC: Patient reports having some constipation, he states that he takes the Miralax every 3 days per bottle instructions. Denies other GI concerns today. Information Systems Security Specialist Required: Yes Information Systems Security Specialist Language: Marshallese Information Systems Security Specialist Name: [id number] Aurelia Accompanied by: Self / Same As Patient Allergies No Known Allergies Allergy (Verified 03/23/24 11:27) HPI HPI 6 month follow up: Details: Assessment & Plan (1) Oropharyngeal dysphagia: Code(s): R13.12 - Dysphagia, oropharyngeal phase (2) Constipation: Code(s): K59.00 - Constipation, unspecified (3) Abdominal pain: Comment: RUQ abd pain Code(s): R10.9 - Unspecified abdominal pain (4) GERD (gastroesophageal reflux disease): Code(s): K21.9 - Gastro-esophageal reflux disease without esophagitis (5) Tubular adenoma of colon: Comment: Multiple adenomas 9 on 2021 scope, also had multiple lost 2019 scope [facility] Code(s): D12.6 - Benign neoplasm of colon, unspecified (6) Pre-op examination: Code(s): Z01.818 - Encounter for other preprocedural examination Plan Marshallese #[id number] He continues to do well on his GI medicines. I ask about his hx of colon polyps with his last scope in 2021 at [facility]. He is agreeable to a repeat colonoscopy. The only new health problems is high cholesterol, he denies any current or ongoing respiratory or cardiac problems. There are no prior problems with anesthesia or sedation. There are no infectious disease problems. Again, he has a history of multiple polyposis his last scope by Dr. Koroma in 2021. ROV 6 mos and after procedure Orders: Orders Colonoscopy - GI Use Only Today Z01.818 - Encounter for other preprocedural examination Medications: New peg 3350-electrolytes 236-22.74-6.74 -5.86 gram (Golytely) until fecal effluent is clear; do not exceed a total volume of 2,000 mL 240 mL PO Q10M 1 day 4,000 mL 0RF Z12.11 - Encounter for screening for malignant neoplasm of colon bisacodyl (Dulcolax (bisacodyl)) 10 mg (2 x 5 mg) PO BEDTIME 2 days 4 tabs 0RF EGD/Colonoscopy Not yet scheduled Biopsy Laboratory Tests 08/28/23 13:06 WBC 8.5 Hgb 14.0 Hct 41.9 L MCV 92.7 MCH 31.0 Plt Count 260 Estimated GFR > 60 Total Bilirubin 0.6 AST 20 ALT 18 Alkaline Phosphatase 53 TSH 0.79 TODAY'S VISIT Marshallese #[id number] Patient was last seen 09/2023 He continues on the pantoprazole and is taking miralax every other day for CIC. He has not yet been contracted for the colonoscopy. He continues to have discomfort and bloating in the left abdomen, and he says I have problems with the pancreatic gland. HE can not qualify why he thinks this. He also admits to back problems and is tender at about T-11 and on the ribcage. Will get XR of abd and t spine. ROV 2 weeks. Joselyn Hummel - ordered EGD/colonoscopy. [facility] Medical History (Updated 03/23/24 @ 12:11 by PATRIZIA Nguynễ) H. pylori infection Annual physical exam Knee pain, left Angina pectoris Hyperlipidemia AIKEN (dyspnea on exertion) COVID-19 Vitamin D deficiency Hyperglycemia Fatigue Sciatica Neuropathy Gastritis Diverticulitis Abdominal pain Chronic rhinitis Kidney stones Surgical History (Updated 03/23/24 @ 12:07 by PATRIZIA Nguyễn) H/O colonoscopy History of esophagogastroduodenoscopy (EGD) Family History Father Lung cancer Mother Stroke Social History Household Members Other:: from [facility] Housing: House Alcohol intake: never Patient Tobacco Use Status: Former Tobacco user e-Cigarette/Vaping Use: Never Used Current occupational status: employed Cognitive needs: No Hearing needs: No Vision needs: No Review of Systems Const Denies fatigue, Denies fever(s), Denies night sweats, Denies poor appetite and Denies weight loss ENT Reports Normal hearing present, Denies dental pain, Denies dysphagia, Denies hearing loss, Denies mouth pain, Denies odynophagia, Denies throat swelling, Denies tongue swelling and Reports other (Dentition adequate) Card Reports no additional complaints Resp Reports no additional complaints GI Details: Reports abdominal pain, Denies melena, Reports bloating, Denies hematochezia, Reports constipation, Denies GI cramping, Denies dysphagia, Denies excessive flatus, Denies early satiety, Reports heartburn, Denies diarrhea, Denies nausea, Denies odynophagia, Denies vomiting and Denies hematemesis Musc Reports back pain Skin/Breast Denies pruritus, Denies lesions, Denies rash and Denies jaundice Neuro Reports Normal hearing present and Denies Abnormal speech present Endo Denies fatigue Aller/Immun Denies throat swelling and Denies tongue swelling Physical Exam Vital Signs: Last Vital Signs Pulse 70 03/23/24 11:18 BP 132/80 03/23/24 11:18 Const General: cooperative, no acute distress, well developed and well groomed Nutritional Appearance: well nourished and obese Orientation/consciousness: oriented to person, oriented to place and oriented to time Limitations: language barrier HEENT Head: Yes normocephalic and Yes atraumatic Eyes General: appearance normal, both eyes and all related structures Pupils: Equal, round and reactive pupils present Neck Neck: Yes normal visual inspection and Yes no lymphadenopathy Thyroid: Thyroid normal Chest Chest palpation & inspection: localized rib tenderness with anteroposterior compression (Right side) Resp Effort & Inspection: normal respiratory effort and able to speak in complete sentences Auscultation: clear to auscultation bilaterally Cardio Rate: regular rate Rhythm: regular rhythm Heart sounds: Normal, physiologic split S2 sound present Peripheral pulses: radial pulses present and posterior tibial pulses present GI Inspection: No distended, No Abdominal panniculus present and Yes obesity Palpation (GI): Soft to palpation, Tenderness to palpation present (GI) in the RUQ, no guarding, not rigid and No hepatosplenomegaly present Percussion: Yes normal to percussion Auscultation: normal bowel sounds Rectal Exam - Male: Yes deferred General: Yes CVA tenderness Back/Spine/Pelvis Back: CVA tenderness and back tenderness Thoracic/Lumbar Spine: pain with thoraco-lumbar ROM and paraspinal muscle tenderness Skin General skin exam: no rashes or lesions noted, turgor normal, skin not dry, no jaundice, No spider nevi and no striae Rashes: no rashes Nails: normal Neuro General: oriented to person, oriented to place and oriented to time Cranial nerves: Yes Equal, round and reactive pupils present and Yes Normal hearing present Speech: No Abnormal speech present Extrem General: Yes normal to inspection, No clubbing, No cyanosis and No edema Psych Appearance: grossly normal and well kempt Mental Status: mental status grossly normal Speech and movement: Normal speech and movement present Affect: normal affect Attitude: cooperative Thought process: Circumstantial thought process present and not confabulating Thought content: Normal thought content present Insight: Limited insight present (Psych) Judgement: Limited judgement present (Psych) Results Reviewed Results Reviewed: Laboratory Tests 08/28/23 13:06 WBC 8.5 Hgb 14.0 Hct 41.9 L MCV 92.7 MCH 31.0 Plt Count 260 Estimated GFR > 60 Total Bilirubin 0.6 AST 20 ALT 18 Alkaline Phosphatase 53 TSH 0.79 Assessment & Plan Assessment & Plan (1) Gastritis: Code(s): K29.70 - Gastritis, unspecified, without bleeding Category: Medical (2) Tubular adenoma of colon: Comment: Multiple adenomas 9 on 2021 scope, also had multiple lost 2019 scope [facility] Code(s): D12.6 - Benign neoplasm of colon, unspecified Category: Medical (3) GERD (gastroesophageal reflux disease): Code(s): K21.9 - Gastro-esophageal reflux disease without esophagitis Category: Medical (4) Pre-op examination: Code(s): Z01.818 - Encounter for other preprocedural examination Category: Medical (5) Chronic idiopathic constipation: Code(s): K59.04 - Chronic idiopathic constipation Category: Medical (6) Left flank pain: Code(s): R10.9 - Unspecified abdominal pain Category: Medical Plan Marshallese #[id number] Patient was last seen 09/2023 He continues on the pantoprazole and is taking miralax every other day for CIC. He has not yet been contracted for the colonoscopy. He continues to have discomfort and bloating in the left abdomen, and he says I have problems with the pancreatic gland. HE can not qualify why he thinks this. He also admits to back problems and is tender at about T-11 and on the ribcage. Will get XR of abd and t spine. ROV 2 weeks. Joselyn Hummel - ordered EGD/colonoscopy. EGD/Colonoscopy Not yet scheduled Biopsy Orders: Orders XR abdomen w decubitus Today R10.9 - Unspecified abdominal pain XR thoracic spine 2V Today R10.9 - Unspecified abdominal pain EGD/[place] Combo - GI Use Only Today D12.6 - Benign neoplasm of colon, unspecified, K21.9 - Gastro-esophageal reflux disease without esophagitis, K29.70 - Gastritis, unspecified, without bleeding, Z01.818 - Encounter for other preprocedural examination Medications: New linaclotide (Linzess) 72 mcg PO QAM 30 caps 6RF K59.04 - Chronic idiopathic constipation linaclotide (Linzess) 72 mcg PO QAM 30 caps 6RF K59.04 - Chronic idiopathic constipation Refilled peg 3350-electrolytes 236-22.74-6.74 -5.86 gram (Golytely) until fecal effluent is clear; do not exceed a total volume of 2,000 mL 240 mL PO Q10M 1 day 4,000 mL 0RF Z12.11 - Encounter for screening for malignant neoplasm of colon peg 3350-electrolytes 236-22.74-6.74 -5.86 gram (Golytely) until fecal effluent is clear; do not exceed a total volume of 2,000 mL 240 mL PO Q10M 1 day 4,000 mL 0RF Z12.11 - Encounter for screening for malignant neoplasm of colon pantoprazole 40 mg PO DAILY 90 tabs 2RF famotidine (Pepcid) 40 mg PO BEDTIME 90 days 90 tabs 1RF famotidine (Pepcid) 40 mg PO BEDTIME 90 days 90 tabs 1RF pantoprazole 40 mg PO DAILY 90 tabs 2RF Coding Level of Care Code Est Pt Level 4 (50426) Diagnoses Gastritis K29.70 Tubular adenoma of colon D12.6 GERD (gastroesophageal reflux disease) K21.9 Pre-op examination Z01.818 Chronic idiopathic constipation K59.04 Left flank pain R10.9
== END 2024-03-23 12:28 | disposition home or self-care (01) ==
LOC: HO.HGI 11:17
PROVIDERS: PCP Internal Medicine; Visit Provider Nurse Practitioner
DX: K29.70 Gastritis, unspecified, without bleeding (principal); D12.6 Benign neoplasm of colon, unspecified; K21.9 Gastro-esophageal reflux disease without esophagitis; Z01.818 Encounter for other preprocedural examination; K59.04 Chronic idiopathic constipation; R10.9 Unspecified abdominal pain
CPT/HCPCS: 99214

== ENCOUNTER 2024-04-29 12:33 | Outpatient (AMB) | payer MEDICARE, SELFPAY ==
[2024-04-29 12:37] VITALS: BP 120/78; BMI 33.6
--- NOTE | 2024-04-29 12:37 | A.OFFPC_ITS ---
Vital Signs 04/29/24 12:37 Height 5 ft 8 in Weight 221 lb BMI 33.6 BP 120/78 Blood Pressure Location Lt brachial Position Sitting Intake Visit Reasons: Arm pain Intake Note: Pt is here today for a sick visit. Pt c/o R arm pain for couple weeks. Pt stated that he has a lump on his R upper arm for the last 5-6 months. Allergies No Known Allergies Allergy (Verified 04/29/24 12:39) Medication List - Last Reconciled 04/29/24 by Peggy Coyne MD bisacodyl (Dulcolax (bisacodyl)) 10 mg (2 x 5 mg) PO BEDTIME 2 days famotidine (Pepcid) 40 mg PO BEDTIME 90 days linaclotide (Linzess) 72 mcg PO QAM metronidazole 0.75% (MetroCream) 1 appl topical BEDTIME mometasone 0.1% 1 appl topical DAILY montelukast 10 mg PO DAILY pantoprazole 40 mg PO DAILY peg 3350-electrolytes 236-22.74-6.74 -5.86 gram (Golytely) 240 mL PO Q10M 1 day polyethylene glycol 3350 (Miralax) 17 grams PO .qhs 90 days Tobacco use date assessed: 04/29/24 Fall risk assessment: No Falls in past year Last assessed Fall Risk: 04/29/24 Dental Screening Dental Screen Date: 04/29/24 Did you have a dental visit in the last 12 months?: Yes Did you have a dental problem in the last 6 months where you did not have access to dental care?: No Was dental information given to patient?: Patient has dentist HPI Arm pain HPI Details Patient presents complaining of right elbow pain worse when using for 3 weeks. Patient sanded and painted his house during the summer. Patient noticed a lump on his right upper shoulder about a month ago slightly tender but not growing. He denies any weakness or numbness in right upper extremity. Patient complains of right upper quadrant discomfort on and off for the last few weeks worse after eating fatty foods no nausea vomiting. Chronic GERD is stable on pantoprazole. Chronic constipation is controlled on Metamucil [facility] Medical History H. pylori infection Annual physical exam Knee pain, left Angina pectoris Hyperlipidemia AIKEN (dyspnea on exertion) COVID-19 Vitamin D deficiency Hyperglycemia Fatigue Sciatica Neuropathy Gastritis Diverticulitis Abdominal pain Chronic rhinitis Kidney stones Surgical History H/O colonoscopy History of esophagogastroduodenoscopy (EGD) Family History Father Lung cancer Mother Stroke Social History Household Members Other:: from [facility] Housing: House Alcohol intake: never Patient Tobacco Use Status: Former Tobacco user e-Cigarette/Vaping Use: Never Used service: No Current occupational status: employed Cognitive needs: No Hearing needs: No Vision needs: No Questionnaire PHQ-9 Over the last 2 weeks, how often have you been bothered by any of the following problems? 1. Little interest or pleasure in doing things: not at all 2. Feeling down, depressed, or hopeless: not at all 3. Trouble falling or staying asleep, or sleeping too much: not at all 4. Feeling tired or having little energy: not at all 5. Poor appetite or overeating: not at all 6. Feeling bad about yourself - or that you are a failure or have let yourself or your family down: not at all 7. Trouble concentrating on things, such as reading the newspaper or watching television: not at all 8. Moving or speaking so slowly that other people could have noticed. Or the opposite - being so fidgety or restless that you have been moving around a lot more than usual: not at all 9. Thoughts that you would be better off or of hurting yourself in some way: not at all Total score: 0 Depression Screening Interpretation: Negative Depression Screening Done: Yes 51034 - PHQ-9 Billing: Yes Source: Developed by Drs. Ibrahima Llamas, Sarah Lan, Matty Murphy and colleagues, with an educational junie from [employer]. Thrive Questionnaire Date Thrive assessed: 04/29/24 I am a: Patient What is your living situation today?: I have a steady place to live Within the past 12 months, did the food you bought not last and you didn't have the money to get more?: Never true Within the past 12 months, did you worry whether your food would run out before you got money to buy more?: Never true Do you have trouble paying for medicines?: No Do you have trouble getting transportation to medical appointments?: No Do you have trouble paying your heating and electricity bill?: No Do you have trouble taking care of your child, family member or friend?: No Do you have trouble with day-to-day activities such as bathing, preparing meals, shopping, managing finances, etc.?: No Are you currently unemployed and looking for a job?: No Are you interested in more education?: No Please select the resources that you would like help with: None THRIVE Score: 0 AUDIT C Alcohol Use Questionnaire (AUDIT-C) 1. How often do you have a drink containing alcohol?: Never 3. How often do you have six or more drinks on one occasion?: Never Total Score: 0 ROLANDO-7 AMB Questionnaire ROLANDO-7 Date ROLANDO - 7 assessed: 04/29/24 Feeling nervous, anxious, or on edge: 0 = Not at all Not being able to stop or control worryin = Not at all Worrying too much about different things: 0 = Not at all Trouble relaxin = Not at all Being so restless that it is hard to sit still: 0 = Not at all Becoming easily annoyed or irritable: 0 = Not at all Feeling afraid as if something awful might happen: 0 = Not at all Total ROLANDO-7 score (0-4 normal; 5-9 mild; 10-14 moderate; 15-21 severe): 0 Source: Developed by Drs. Ibrahima Llamas, Sarah Lan, Matty Murphy and colleagues, with an educational junie from [employer]. ROLANDO-7 Assessment Billing ROLANDO-7 Assessment Tool: ROLANDO-7 Assessment 44784 Review of Systems Const All systems reviewed & are unremarkable except as noted in HPI and below Eyes Reports no additional complaints Card Reports no additional complaints Resp Reports no additional complaints GI Reports no additional complaints Reports no additional complaints Physical exam (Primary Care) Vital Signs: Last Vital Signs BP 120/78 04/29/24 12:37 BMI result Body Mass Index 33.6 Tobacco/Smoking Status: Tobacco use Status Tobacco use date assessed 04/29/24 04/29/24 12:42 Patient Tobacco Use Status Former Tobacco user 04/29/24 12:42 e-Cigarette/Vaping Use Never Used 04/29/24 12:42 PHQ-9: PHQ-9 Score PHQ-9: Total score 0 04/29/24 12:42 Depression Screening Interpretation: Negative Thrive Assessment: Date of Thrive Assessment Date Thrive assessed 04/29/24 04/29/24 12:42 Const General: no acute distress Resp Effort & Inspection: normal respiratory effort Auscultation: clear to auscultation bilaterally Cardio Rhythm: regular rhythm Heart sounds: S1 normal heart sound present and S2 normal heart sound present GI Other: Right upper quadrant tenderness no rebound or guarding Inspection: Yes normal to inspection Palpation (GI): Soft to palpation Percussion: Yes normal to percussion Auscultation: normal bowel sounds Extrem Other: 6cm x 5 cm subcutaneous soft tissue mass mobile on upper arm, no erythema warmth, decreased range of motion and right elbow lateral tenderness reproducing the pain Assessment and Plan Assessment & Plan (1) RUQ abdominal pain: Code(s): R10.11 - Right upper quadrant pain Plan: Obtain abdominal ultrasound to rule out gallstone (2) Hyperlipidemia: Code(s): E78.5 - Hyperlipidemia, unspecified Plan: Continue low-cholesterol diet check lipid profile today (3) Hyperglycemia: Code(s): R73.9 - Hyperglycemia, unspecified Plan: Check A1c and ADA diet discussed with the patient (4) Vitamin D deficiency: Code(s): E55.9 - Vitamin D deficiency, unspecified (5) Mass of right upper extremity: Code(s): R22.31 - Localized swelling, mass and lump, right upper limb Plan: Obtain right upper extremity soft tissue ultrasound to evaluate for possible lipoma (6) Tennis elbow: Code(s): M77.10 - Lateral epicondylitis, unspecified elbow Plan: Meloxicam 15 mg daily for 2 weeks is prescribed and patient was given home exercises. if the pain persists he will be referred to physical therapy Orders: Orders Comprehensive [place]. Panel Fast Today E55.9 - Vitamin D deficiency, unspecified, E78.5 - Hyperlipidemia, unspecified, R73.9 - Hyperglycemia, unspecified PSA,Total (Free>4and<10) Today E55.9 - Vitamin D deficiency, unspecified, E78.5 - Hyperlipidemia, unspecified, R73.9 - Hyperglycemia, unspecified US abdomen complete 05/23/24 R10.11 - Right upper quadrant pain US extremity nonvascular 05/23/24 R22.31 - Localized swelling, mass and lump, right upper limb Lipid Panel Today E55.9 - Vitamin D deficiency, unspecified, E78.5 - Hyperli pidemia, unspecified, R73.9 - Hyperglycemia, unspecified Complete Blood Count Auto Diff Today E55.9 - Vitamin D deficiency, unspecified, E78.5 - Hyperlipidemia, unspecified, R73.9 - Hyperglycemia, unspecified Medications: New meloxicam 15 mg PO DAILY 14 tabs 0RF Refilled metronidazole 0.75% (MetroCream) 1 appl topical BEDTIME 45 grams 4RF Coding Level of Care Code Est Pt Level 4 (38746) Diagnoses RUQ abdominal pain R10.11 Hyperlipidemia E78.5 Hyperglycemia R73.9 Vitamin D deficiency E55.9 Mass of right upper extremity R22.31 Tennis elbow M77.10 Additional Codes ROLANDO-7 Assessment Billing - ROLANDO-7 Assessment Tool: ROLANDO-7 Assessment 16897 ([id number])
== END 2024-04-29 13:28 | disposition home or self-care (01) ==
PROVIDERS: PCP Internal Medicine; Visit Provider Internal Medicine
DX: R10.11 Right upper quadrant pain (principal); E78.5 Hyperlipidemia, unspecified; R73.9 Hyperglycemia, unspecified; E55.9 Vitamin D deficiency, unspecified; R22.31 Localized swelling, mass and lump, right upper limb; M77.10 Lateral epicondylitis, unspecified elbow

== ENCOUNTER → 2024-04-29 12:33 | Outpatient (BNVA) | payer MEDICARE, SELFPAY | PROVIDERS: PCP Internal Medicine; Visit Provider Internal Medicine ==

== ENCOUNTER 2024-04-29 13:16 | Outpatient (REF) | payer MEDICARE, SELFPAY ==
[2024-04-29 16:31] LABS: MANUAL DIFF FLAG NO
[2024-04-29 16:40] LABS: Basophils Absolute Auto 0.1 X10*3/uL (0.0-0.2); Basophils Percent Auto 0.7 % (0-2); Eosinophils Absolute Auto 0.1 X10*3/uL (0.0-0.4); Eosinophils Percent Auto 1.6 % (0-4); Hematocrit 39.7 % (42.0-52.0); Hemoglobin 13.5 g/dl (14.0-18.0); Imm Gran Abs Auto 0.01 X10*3/uL (0.00-0.03); Imm Gran Pct Auto 0.1 % (0.0-0.4); Lymphocytes Absolute Auto 4.7 X10*3/uL (1.2-4.9); Lymphocytes Percent Auto 57.3 % (20-40); Mean Corpuscular Hemoglobin 30.5 pg (27.0-33.0); Mean Corpuscular Volume 89.8 fL (80.0-98.0); Mean Platelet Volume 9.9 fL (9.4-12.4); Monocytes Absolute Auto 0.4 X10*3/uL (0.1-1.2); Neutrophils Absolute Auto 2.9 x10*3/uL (2.0-8.3); Neutrophils Percent Auto 35.3 % (45-73); Platelet Count 268 X10*3/uL (160-400); Red Blood Count 4.42 X10*6/uL (4.60-5.80); Red Cell Distribution Width 12.5 % (11.0-16.0); White Blood Count 8.1 X10*3/uL (4.8-10.8)
[2024-04-29 16:54] LABS: Alanine Aminotransferase 20 U/L (0-40); Albumin Level 4.2 g/dL (3.5-5.0); Alkaline Phosphatase 52 U/L (39-117); Anion Gap 13 (12-20); Aspartate Amino Transferase 23 U/L (5-37); Bilirubin Total 0.6 mg/dL (0.0-1.0); Blood Urea Nitrogen 17 mg/dL (9-16); Calcium 9.5 mg/dL (8.4-10.2); Carbon Dioxide 27 mmol/L (22-29); Chloride 105 mmol/L (96-108); Cholesterol 214 mg/dL (<200); Estimated Average Glucose 117 mg/dL; Estimated Glomerular Filt Rate > 60; Glucose Fasting 91 mg/dL (60-99); HDL Cholesterol 58 mg/dL (>40); Hemoglobin A1c % 5.7 % (<6.0); LDL Cholesterol Calculated 142 mg/dL (<100); Sodium 141 mmol/L (135-145); Total Hemoglobin (HGBA1C) 3425.1903 umol/L; Total Protein 7.4 g/dL (6.5-8.0); Triglycerides 74 mg/dL (<150)
[2024-04-29 17:14] LABS: PSA,Total (Free>4and<10) 0.68 ng/mL (0.00-4.00)
== END 2024-04-29 13:17 | disposition home or self-care (01) ==
LOC: HO.HMGCLDS 13:16
PROVIDERS: PCP Internal Medicine; Visit Provider Internal Medicine
DX: R10.11 Right upper quadrant pain (principal); E78.5 Hyperlipidemia, unspecified; R73.9 Hyperglycemia, unspecified; E55.9 Vitamin D deficiency, unspecified; R22.31 Localized swelling, mass and lump, right upper limb; M77.10 Lateral epicondylitis, unspecified elbow; Z12.5 Encounter for screening for malignant neoplasm of prostate
CPT/HCPCS: 36415; 80053; 80061; 83036; 84153; 85025; 96127; 99212

== ENCOUNTER 2024-05-30 13:54 | Outpatient (REF) | payer MEDICARE, SELFPAY ==
--- NOTE | ~2024-05-30 | US_ITS ---
EXAMINATION: US ABDOMEN LIMITED CLINICAL INFORMATION: Right upper quadrant pain. COMPARISON: X-ray abdomen 05/23/2024. Ultrasound abdomen 09/02/2022. CT abdomen and pelvis 11/05/2020. TECHNIQUE: Real-time imaging of the right upper quadrant abdominal viscera. FINDINGS: PANCREAS: The visualized portion of the pancreas head and body are normal, portion of the pancreatic body and tail, not visualized are obscured by bowel gas. LIVER: The liver is normal in size. The liver contour is normal. Increased echogenicity of the liver parenchyma, this can be seen in the setting of hepatic steatosis or liver parenchymal disease. No focal hepatic lesion. There is no intrahepatic biliary duct dilatation seen. GALLBLADDER: Normal. The gallbladder is physiologically distended without evidence of stones, sludge, polyps, wall thickening or pericholecystic fluid. COMMON BILE DUCT: Normal in caliber measuring 0.32 cm in diameter. RIGHT KIDNEY: Normal. No hydronephrosis. No renal calculi or focal parenchymal lesions. The kidney measures 11.1 cm in maximum dimension. FREE FLUID: None. US/US abdomen limited IMPRESSION: 1. No ultrasound evidence of gallbladder disease or gallstones. 2. Increased echogenicity of the liver parenchyma, this can be seen in the setting of hepatic steatosis or liver parenchymal disease. Electronically signed by: Brielle Redd MD 06/19/2024 05:31 PM MERLE BRADFORD
== END 2024-05-30 13:55 | disposition home or self-care (01) ==
LOC: HO.HMGCX 13:54
PROVIDERS: PCP Internal Medicine; Visit Provider Internal Medicine
DX: R22.31 Localized swelling, mass and lump, right upper limb (principal); R10.11 Right upper quadrant pain
CPT/HCPCS: 76705; 76882

== ENCOUNTER 2024-07-19 12:15 | Outpatient (AMB) | payer MEDICARE, SELFPAY ==
--- NOTE | 2024-07-19 12:18 | A.OFFVIS_ITS ---
Vital Signs 07/19/24 12:31 Height 5 ft 8 in Weight 223 lb BMI 33.9 BP 116/80 Blood Pressure Location Lt brachial Position Sitting Pulse 83 Intake Visit Reasons: 2 week follow up r/s from 04/08 Intake Note: Patient 2 weeks follow up Patient cc: constipation and denies any other GI issues for today. 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 Accompanied by: Self / Same As Patient Allergies No Known Allergies Allergy (Verified 07/19/24 12:23) HPI HPI 2 week follow up r/s from 04/08: Details: Assessment & Plan (1) Gastritis: Code(s): K29.70 - Gastritis, unspecified, without bleeding Category: Medical (2) Tubular adenoma of colon: Comment: Multiple adenomas 9 on 2021 scope, also had multiple lost 2019 scope [facility] Code(s): D12.6 - Benign neoplasm of colon, unspecified Category: Medical (3) GERD (gastroesophageal reflux disease): Code(s): K21.9 - Gastro-esophageal reflux disease without esophagitis Category: Medical (4) Pre-op examination: Code(s): Z01.818 - Encounter for other preprocedural examination Category: Medical (5) Chronic idiopathic constipation: Code(s): K59.04 - Chronic idiopathic constipation Category: Medical (6) Left flank pain: Code(s): R10.9 - Unspecified abdominal pain Category: Medical Plan [facility] #[id number] Patient was last seen 09/2023 He continues on the pantoprazole and is taking miralax every other day for CIC. He has not yet been contracted for the colonoscopy. He continues to have discomfort and bloating in the left abdomen, and he says I have problems with the pancreatic gland. HE can not qualify why he thinks this. He also admits to back problems and is tender at about T-11 and on the ribcage. Will get XR of abd and t spine. ROV 2 weeks. Joselyn Hummel - ordered EGD/colonoscopy. Orders: Orders XR abdomen w decubitus Today R10.9 - Unspecified abdominal pain XR thoracic spine 2V Today R10.9 - Unspecified abdominal pain EGD/[place] [facility] - GI Use Only Today D12.6 - Benign neoplasm of colon, unspecified, K21.9 - Gastro-esophageal reflux disease without esophagitis, K29.70 - Gastritis, unspecified, without bleeding, Z01.818 - Encounter for other preprocedural examination Medications: New linaclotide (Linzess) 72 mcg PO QAM 30 caps 6RF K59.04 - Chronic idiopathic constipation linaclotide (Linzess) 72 mcg PO QAM 30 caps 6RF K59.04 - Chronic idiopathic constipation Refilled peg 3350-electrolytes 236-22.74-6.74 -5.86 gram (Golytely) until fecal effluent is clear; do not exceed a total volume of 2,000 mL 240 mL PO Q10M 1 day 4,000 mL 0RF Z12.11 - Encounter for screening for malignant neoplasm of colon peg 3350-electrolytes 236-22.74-6.74 -5.86 gram (Golytely) until fecal effluent is clear; do not exceed a total volume of 2,000 mL 240 mL PO Q10M 1 day 4,000 mL 0RF Z12.11 - Encounter for screening for malignant neoplasm of colon pantoprazole 40 mg PO DAILY 90 tabs 2RF famotidine (Pepcid) 40 mg PO BEDTIME 90 days 90 tabs 1RF famotidine (Pepcid) 40 mg PO BEDTIME 90 days 90 tabs 1RF pantoprazole 40 mg PO DAILY 90 tabs 2RF X-ray of the abdomen and thoracic spine 04/11/24 FINDINGS: Minimal S-shaped scoliosis. Vertebral body heights are maintained. Minimal degenerative changes in the thoracic spine. Paraspinous lines appear normal. The included lungs are clear. XR/XR thoracic spine 2V IMPRESSION: Mild scoliosis. Mild degenerative changes. No compression fracture. ULTRASOUND OF THE ABDOMEN (ORDERED BY PCP) 06/19/24 FINDINGS: PANCREAS: The visualized portion of the pancreas head and body are normal, portion of the pancreatic body and tail, not visualized are obscured by bowel gas. LIVER: The liver is normal in size. The liver contour is normal. Increased echogenicity of the liver parenchyma, this can be seen in the setting of hepatic steatosis or liver parenchymal disease. No focal hepatic lesion. There is no intrahepatic biliary duct dilatation seen. GALLBLADDER: Normal. The gallbladder is physiologically distended without evidence of stones, sludge, polyps, wall thickening or pericholecystic fluid. COMMON BILE DUCT: Normal in caliber measuring 0.32 cm in diameter. RIGHT KIDNEY: Normal. No hydronephrosis. No renal calculi or focal parenchymal lesions. The kidney measures 11.1 cm in maximum dimension. FREE FLUID: None. US/US abdomen limited IMPRESSION: 1. No ultrasound evidence of gallbladder disease or gallstones. 2. Increased echogenicity of the liver parenchyma, this can be seen in the setting of hepatic steatosis or liver parenchymal disease. EGD/Colonoscopy 08/29/2024 Biopsy TODAY'S VISIT [facility] #[id number] Patient was last seen 09/2023 He [facility]. So fare the pain in the RUQ does not appear to be GB or spinal, so CIC is in the ddx as well as PUD. He IS using Miralax w/o sufficient relief. He has an appointment to see me s/p procedures 09/13. [facility] Medical History (Updated 07/19/24 @ 12:21 by PATRIZIA Nguyễn) Oropharyngeal dysphagia Pre-op examination Gastritis Epigastric pain COVID-19 Abdominal pain H. pylori infection Annual physical exam Knee pain, left Angina pectoris Hyperlipidemia AIKEN (dyspnea on exertion) Vitamin D deficiency Hyperglycemia Fatigue Sciatica Neuropathy Diverticulitis Abdominal pain Chronic rhinitis Kidney stones Surgical History H/O colonoscopy History of esophagogastroduodenoscopy (EGD) Family History Father Lung cancer Mother Stroke Social History Household Members Other:: from [facility] Housing: House Alcohol intake: never Patient Tobacco Use Status: Former Tobacco user e-Cigarette/Vaping Use: Never Used service: No Current occupational status: employed Cognitive needs: No Hearing needs: No Vision needs: No Review of Systems Const Denies fatigue, Denies fever(s), Denies night sweats, Denies poor appetite and Denies weight loss ENT Reports Normal hearing present, Denies dental pain, Denies dysphagia, Denies hearing loss, Denies mouth pain, Denies odynophagia, Denies throat swelling, Denies tongue swelling and Reports other (Dentition adequate) Card Reports no additional complaints Resp Reports no additional complaints GI Details: Reports abdominal pain, Denies melena, Reports bloating, Denies hematochezia, Reports constipation, Denies GI cramping, Denies dysphagia, Denies excessive flatus, Denies early satiety, Reports heartburn, Denies diarrhea, Denies nausea, Denies odynophagia, Denies vomiting and Denies hematemesis Skin/Breast Denies pruritus, Denies lesions, Denies rash and Denies jaundice Neuro Reports Normal hearing present and Denies Abnormal speech present Endo Denies fatigue Aller/Immun Denies throat swelling and Denies tongue swelling Physical Exam Vital Signs: Last Vital Signs Pulse 83 07/19/24 12:31 BP 116/80 07/19/24 12:31 BMI result Body Mass Index 33.9 Const General: cooperative, no acute distress, well developed and well groomed Nutritional Appearance: well nourished and obese centrally obese Orientation/consciousness: oriented to person, oriented to place and oriented to time Limitations: language barrier HEENT Head: Yes normocephalic and Yes atraumatic Eyes General: appearance normal, both eyes and all related structures Pupils: Equal, round and reactive pupils present Neck Neck: Yes normal visual inspection and Yes no lymphadenopathy Thyroid: Thyroid normal Resp Effort & Inspection: normal respiratory effort and able to speak in complete sentences Auscultation: clear to auscultation bilaterally Cardio Rate: regular rate Rhythm: regular rhythm Heart sounds: Normal, physiologic split S2 sound present Peripheral pulses: radial pulses present and posterior tibial pulses present GI Inspection: No distended, No Abdominal panniculus present and Yes obesity Palpation (GI): Soft to palpation, nontender, no guarding, not rigid and No hepatosplenomegaly present Percussion: Yes normal to percussion Auscultation: normal bowel sounds Rectal Exam - Male: Yes deferred Skin General skin exam: no rashes or lesions noted, turgor normal, skin not dry, no jaundice, No spider nevi and no striae Rashes: no rashes Nails: normal Neuro General: oriented to person, oriented to place and oriented to time Cranial nerves: Yes Equal, round and reactive pupils present and Yes Normal hearing present Speech: No Abnormal speech present Extrem General: Yes normal to inspection, No clubbing, No cyanosis and No edema Psych Appearance: grossly normal and well kempt Mental Status: mental status grossly normal Speech and movement: Normal speech and movement present Affect: normal affect Attitude: cooperative Thought process: Normal thought process present and not confabulating Thought content: Normal thought content present Insight: Fair insight present (Psych) and Limited insight present (Psych) Judgement: Fair judgement present (Psych) and Limited judgement present (Psych) Assessment & Plan Assessment & Plan (1) RUQ abdominal pain: Code(s): R10.11 - Right upper quadrant pain Category: Medical (2) Chronic idiopathic constipation: Code(s): K59.04 - Chronic idiopathic constipation Category: Medical (3) Constipation: Code(s): K59.00 - Constipation, unspecified Category: Medical (4) GERD (gastroesophageal reflux disease): Code(s): K21.9 - Gastro-esophageal reflux disease without esophagitis Category: Medical Plan [facility] #[id number] Patient was last seen 09/2023 He [facility] the [facility]. So fare the pain in the RUQ does not appear to be GB or spinal, so CIC is in the ddx as well as PUD. He IS using Miralax w/o sufficient relief. He has an appointment to see me s/p procedures 09/13. Medications: Refilled pantoprazole 40 mg PO DAILY 90 tabs 2RF polyethylene glycol 3350 (Miralax) 17 grams PO .qhs 10,530 grams 1RF 90 days K59.00 - Constipation, unspecified famotidine (Pepcid) 40 mg PO BEDTIME 90 tabs 1RF 90 days peg 3350-electrolytes 236-22.74-6.74 -5.86 gram (Golytely) until fecal effluent is clear; do not exceed a total volume of 2,000 mL 240 mL PO Q10M 4,000 mL 0RF 1 day Z12.11 - Encounter for screening for malignant neoplasm of colon bisacodyl (Dulcolax (bisacodyl)) 10 mg (2 x 5 mg) PO BEDTIME 4 tabs 0RF 2 days Coding Level of Care Code Est Pt Level 3 (19067) Diagnoses RUQ abdominal pain R10.11 Chronic idiopathic constipation K59.04 Constipation K59.00 GERD (gastroesophageal reflux disease) K21.9
[2024-07-19 12:31] VITALS: BP 116/80; PULSE 83; BMI 33.9
== END 2024-07-19 15:49 | disposition home or self-care (01) ==
PROVIDERS: PCP Internal Medicine; Visit Provider Nurse Practitioner
DX: R10.11 Right upper quadrant pain (principal); K59.04 Chronic idiopathic constipation; K59.00 Constipation, unspecified; K21.9 Gastro-esophageal reflux disease without esophagitis
CPT/HCPCS: 99213

== ENCOUNTER → 2024-07-19 12:15 | Outpatient (BNVA) | payer MEDICARE, SELFPAY | PROVIDERS: PCP Internal Medicine; Visit Provider Nurse Practitioner | DX: K59.04 Chronic idiopathic constipation (principal); K21.9 Gastro-esophageal reflux disease without esophagitis; R10.11 Right upper quadrant pain | CPT/HCPCS: 99212 ==

== ENCOUNTER 2024-08-29 15:27 | Day surgery (SDC) | payer MEDICARE, SELFPAY ==
--- NOTE | 2024-08-26 10:07 | P.CONAN_ITS ---
Documented by User: Nicol Matos NP 08/26/24 10:08 HPI - Anesthesia Eval Consult details Narrative: 64yo M for ?Upper Endoscopy and Colonoscopy PMF Active Problems Active Problems: All Active Problems Tennis elbow (Acute) Mass of right upper extremity (Acute) RUQ abdominal pain (Acute) Left flank pain (Acute) Chronic idiopathic constipation (Acute) Allergic rhinitis (Acute) Enlarged thyroid (Acute) Thoracic back pain (Acute) Constipation (Acute) Rhinophyma (Acute) Acne rosacea (Acute) Knee pain, left (Acute) Angina pectoris (Acute) Hyperlipidemia (Acute) AIKEN (dyspnea on exertion) (Acute) Vitamin D deficiency (Acute) Hyperglycemia (Acute) Fatigue (Acute) GERD (gastroesophageal reflux disease) (Acute) Diastasis of rectus abdominis (Acute) Sciatica (Acute) Neuropathy (Acute) Tubular adenoma of colon (Acute) Diverticulitis (Acute) Past Medical History Medical History (Updated 07/19/24 @ 12:21 by PATRIZIA Nguyễn) Oropharyngeal dysphagia Pre-op examination Gastritis Epigastric pain COVID-19 Abdominal pain H. pylori infection Annual physical exam Knee pain, left Angina pectoris Hyperlipidemia AIKEN (dyspnea on exertion) Vitamin D deficiency Hyperglycemia Fatigue Sciatica Neuropathy Diverticulitis Abdominal pain Chronic rhinitis Kidney stones Family History Family History Father Lung cancer Mother Stroke Family history of problems with anesthesia: No Surgical History Surgical History H/O colonoscopy History of esophagogastroduodenoscopy (EGD) History of Problems with Anesthesia: No Social History Social History Household Members Other:: from [facility] Housing: House Alcohol intake: never Patient Tobacco Use Status: Former Tobacco user e-Cigarette/Vaping Use: Never Used Advance Directives Date on File: 08/29/24 service: No Current occupational status: employed Cognitive needs: No Hearing needs: No Vision needs: No Meds Allergies Allergy/AdvReac Type Severity Reaction Status Date / Time No Known Allergies Allergy Verified 07/19/24 12:23 Assessment and Plan Assessment Anesthesia Assessment: Chart Reviewed Final Anesthetic Review Family History of Problems with Anesthesia: No History of Problems with Anesthesia: No Documented by User: Rubio Witt MD 08/29/24 13:40 PMFSH Past Medical History Medical History (Updated 07/19/24 @ 12:21 by PATRIZIA Nguyễn) Oropharyngeal dysphagia Pre-op examination Gastritis Epigastric pain COVID-19 Abdominal pain H. pylori infection Annual physical exam Knee pain, left Angina pectoris Hyperlipidemia AIKEN (dyspnea on exertion) Vitamin D deficiency Hyperglycemia Fatigue Sciatica Neuropathy Diverticulitis Abdominal pain Chronic rhinitis Kidney stones Family History Family History Father Lung cancer Mother Stroke Surgical History Surgical History H/O colonoscopy History of esophagogastroduodenoscopy (EGD) Social History Social History Household Members Other:: from [facility] Housing: House Alcohol intake: never Patient Tobacco Use Status: Former Tobacco user e-Cigarette/Vaping Use: Never Used Advance Directives Date on File: 08/29/24 service: No Current occupational status: employed Cognitive needs: No Hearing needs: No Vision needs: No Meds Allergies Allergy/AdvReac Type Severity Reaction Status Date / Time No Known Allergies Allergy Verified 07/19/24 12:23 Exam Airway Mallampati Class: II TM Dist: >3cm Neck ROM: Full Assessment and Plan Assessment Anesthesia Assessment: Anesthesia Plan Discussed Final Anesthetic Review NPO: Yes ASA Class: II Final Preanesthetic Review: No Changes in Pt Med Stat, Meds/Allgs Chart Reviewed, Consent Obtained/Reviewed and Anes Risks/Benef Reviewed Patient Risk: Low Procedure Risk: Low Anesthetic Plan Anesthetic Plan: TIVA Disposition: Standard PACU
--- NOTE | 2024-08-29 10:55 | MHC.SHP ---
Pre-Procedural Eval Section A - 24 Hr Update-Section A only Date of Service: 08/29/24 Section B - Complete if H&P > 30 days Chief Complaint: Gastritis, unspecified, without bleeding Relevant Family History (Specify if Yes): No Relevant Social History: Tobacco Use (Former smoker) Present Medications: see Short Stay Collaborative assessment Medical History: Significant History (Oropharyngeal dysphagia Pre-op examination Gastritis Epigastric pain COVID-19 Abdominal pain H. pylori infection Annual physical exam Knee pain, left Angina pectoris Hyperlipidemia AIKEN (dyspnea on exertion) Vitamin D deficiency) History of Previous Operations: Relevant previous surgery/procedure and date(s) (History of EGD and colonoscopy) Allergies: Allergies Allergy/AdvReac Type Severity Reaction Status Date / Time No Known Allergies Allergy Verified 07/19/24 12:23 Review of Systems Sugical H&P ROS: Negative: Constitution, Cardiovascular, Respiratory and Gastrointestinal Exam Surgical H&P Exam: Normal: Heart, Normal: Lungs, Normal: Extremities and Normal: Abdomen Plan Diagnosis/Plan: Unchanged I have reviewed the history and physical and performed a pertinent physical examination on my patient. No changes have occurred unless specified. Time Spent With Patient Time: Total time managing care of this patient today ____ minutes.
[2024-08-29 12:56] VITALS: BMI 33.4
[2024-08-29 13:03] VITALS: BP 137/81; PULSE 58; RESP 12; TEMP 36.7; O2SAT 96
[2024-08-29] MEDS: Lactated Ringers 1,000 ML 100 ML IVCONT (13:18)
--- NOTE | 2024-08-29 13:21 | P.OPN-COLO_ITS ---
Colonoscopy Operative Note Operative Note Date of Service: 08/29/24 Narrative: FLEXIBLE TRANSORAL UPPER GASTROINTESTINAL ENDOSCOPY WITH BIOPSIES AND COLONOSCOPY TILL CECUM WITH SNARE POLYPECTOMY Pre-op diagnosis: Surveillance for colon polyps, RUQ abdominal pain Post-op diagnosis: Gastritis, Colon Polyps, Diverticulosis, hemorrhoids Endoscopist:Cash Koroma MD Anesthesia:?MAC UPPER ENDOSCOPY Consent: Indications for the procedure and potential complications of bleeding, perforation, reaction to medications and missed diagnosis were discussed with the patient with the help of a [place]ian languages and literature instructor and informed consent was obtained. Instrument: Olympus GIF H 190 mid size upper endoscope Monitoring: Vital signs and clinical assessment, continuous EKG monitoring, Pulse oximetry, Carbon Dioxide monitoring and blood pressure monitoring were done throughout the procedure. Procedure: The patient was placed in the left lateral decubitis position and pre-procedure medications were administered and a bite block was placed. The endoscope was inserted into the mouth and advanced under direct vision to the third part of duodenum. A careful inspection was made as the upper endoscope was withdrawn including a retroflexed examination of the proximal stomach; Findings and interventions are described below. Findings: Larynx: Normal Esophagus: GE junction at 40 cms. No esophagitis or Stauffer's. Stomach: Moderate diffuse gastric erythema - biopsies were obtained from the gastric body and antrum. Grade 2 flap valve on retroflexed examination of the cardia. Duodenum: Normal bulb and descending duodenum Biopsies were obtained from descending duodenum to check for celiac sprue Intervention: Biopsies as noted above COLONOSCOPY PROCEDURE NOTE Instrument: Olympus CF H 190 L variable stiffness adult colonoscope Monitoring: Vital signs and clinical assessment, intermittent blood pressure monitoring, continuous EKG monitoring, Pulse oximetry and Carbon Dioxide monitoring were done throughout the procedure. Please see anesthesia flowsheet. Colon withdrawl time was 23 minutes. Procedure: The patient was placed in the left lateral decubitis position and pre-procedure medications were administered. After a digital rectal examination of the ano-rectum, the video colonoscope was inserted into the rectum and advanced through the colon to the cecum. The colonoscope was slowly withdrawn in a retrograde panoramic fashion and the colon mucosa was carefully examined including a retroflexed view of the rectum. Findings and interventions are described below. Procedure Difficulty: Colon was long and tortuous and there was some loop formation. Pt was placed in the supine position and LLQ pressure was applied to intubate the cecum Findings: Terminal Ileum: Not evaluated Cecum: Normal Ascending Colon: A 10-12 mm sessile polyp in the distal AC - removed with a stiff hot snare Transverse Colon: A 10-12 mm sessile polyp - removed with a stiff hot snare Descending Colon: A 10-12 mm sessile polyp - removed with a stiff hot snare Sigmoid Colon: Moderate diverticulosis Rectum: Normal Ano-rectum: Moderate internal hemorrhoids Colon preparation: Good after copious irrigation. [place] Bowel Preparation Scale Right colon; 2 Transverse colon: 2 Left colon; 2 (0 = Unprepared colon segment with mucosa not seen due to solid stool that cannot be cleared. 1 = Portion of mucosa of the colon segment seen, but other areas of the colon segment not well seen due to staining, residual stool and/or opaque liquid. 2 = Minor amount of residual staining, small fragments of stool and/or opaque liquid, but mucosa of colon segment seen well. 3 = Entire mucosa of colon segment seen well with no residual staining, small fragments of stool or opaque liquid) Impression and Post Procedure Diagnosis: Endoscopy Findings: ESOPHAGUS: Normal STOMACH: Moderate diffuse gastric erythema - biopsies were obtained from the gastric body and antrum. DUODENUM: Normal - biopsied to check for celiac sprue Colonoscopy Findings: Three medium sized polyps were removed Moderate diverticulosis seen in the sigmoid colon Moderate hemorrhoids on retroflexed exam. Plan: Pt has a FU appointment on 09/13/24 with Christi Harrison NP. Repeat Colonoscopy in 3 years if polyps are adenomatous and due to a history of multiple adenomatous polyps (Of note nine polyps were removed during previous colonoscopy in 07/2022) Above findings were reviewed with the patient with the help of a [place]ian Professor Of Communication and relevant handouts were given and the discharge area.
[2024-08-29 14:22] VITALS: BP 130/75; PULSE 64; RESP 17; TEMP 36.1; O2SAT 95
[2024-08-29 14:36] VITALS: BP 138/82; PULSE 52; RESP 16; O2SAT 97
--- OUTSIDE RECORDS SUMMARY | 2024-08-29 19:30 | XMS_ITS | Clinical Summary ---
Author Organization [facility] Facility Address [address] [address] Care Team Providers Care Ball Holder Name Role Phone Peggy Coyne MD Primary Care Provider [phone] Social History Tobacco Use Types Packs/Day Years Used Date Smoking Tobacco: Never Assessed Sex and Gender Information Value Date Recorded Sex Assigned at Not on file Legal Sex Male 10:39 AM EST Gender Identity Not on file Sexual Orientation Not on file Plan of Treatment Health Maintenance Due Date Last Done Comments Colorectal Cancer Screening: Annual FOBT 01/29/2008 Colorectal Cancer Screening: Colonoscopy 01/29/2008 Colorectal Cancer Screening: Sigmoidoscopy 01/29/2008 Pneumococcal Vaccine: 65+ Ye ars (1 of 1 - PCV) 01/29/2024 Influenza Vaccine (#1) 2024 Hepatitis B Vaccine Aged Out No longe r eligible based on patient's age to complete this topic Pneumococcal Vaccine: Pediat rics (0 to 5 Years) and At-Risk Patients (6 to 64 Years) Aged Out No longer eligible b ased on patient's age to complete this topic Insurance [place] [address] Care Teams Ball Holder Relationship Specialty Start Date End Date Peggy Coyne MD [address] [place] [address] PCP - General Internal Medicine 07/24/21
== END 2024-08-29 15:35 | disposition home or self-care (01) ==
LOC: HO.SSS 15:27
PROVIDERS: PCP Internal Medicine; Visit Provider Internal Medicine Gastroenterology
PROC: (CPT 45385; principal; 2024-08-29 13:50)
DX: Z12.11 Encounter for screening for malignant neoplasm of colon (principal); Z86.0101 Personal history of adenomatous and serrated colon polyps; D12.2 Benign neoplasm of ascending colon; D12.4 Benign neoplasm of descending colon; K63.5 Polyp of colon; K59.04 Chronic idiopathic constipation; R10.11 Right upper quadrant pain; R13.12 Dysphagia, oropharyngeal phase; K21.9 Gastro-esophageal reflux disease without esophagitis; K29.50 Unspecified chronic gastritis without bleeding; G62.9 Polyneuropathy, unspecified; I20.9 Angina pectoris, unspecified; Z87.891 Personal history of nicotine dependence; E55.9 Vitamin D deficiency, unspecified; E78.5 Hyperlipidemia, unspecified; Z87.442 Personal history of urinary calculi; Z79.899 Other long term (current) drug therapy; J30.9 Allergic rhinitis, unspecified
CPT/HCPCS: 45385; 43239; 88305; 88313; 88342; J2003; J2704

== ENCOUNTER → 2024-08-29 15:27 | Outpatient (BNV) | payer MEDICARE, SELFPAY | PROVIDERS: PCP Internal Medicine; Visit Provider Internal Medicine Gastroenterology | DX: Z12.11 Encounter for screening for malignant neoplasm of colon (principal); Z86.0100 Personal history of colon polyps, unspecified; D12.4 Benign neoplasm of descending colon; K57.30 Diverticulosis of large intestine without perforation or abscess without bleeding; K29.70 Gastritis, unspecified, without bleeding | CPT/HCPCS: 43239; 45385 ==

== ENCOUNTER 2024-10-19 09:00 | Outpatient (RCR) | payer MEDICARE, SELFPAY ==
--- NOTE | 2024-10-05 09:23 | MHC.OT.EP ---
[address] [phone] Occupational Therapy Plan of Care Patient Name: Bert Cruz Date of Evaluation: 10/05/24 Diagnosis: Right arm pain Pain Location: Pain R arm Current: 4/10 Worst: 7-8/10 Pain Score: 4 Pain Scale Used: Numeric (0 - 10) Aggravating Factors: Heavy lifting, forceful grasp Alleviating Factors: Pain medication Assessment: Bert is a 64 y/o male referred to OT with R UE pain. Patient reports an approximately one-year history of right upper arm pain, with no specific injury but a possible overuse injury from sanding and painting his house over the summer. He first noticed a non-growing, slightly tender lump on his right upper arm six+ months ago, which has gradually improved in pain. Ultrasound was unremarkable. He denies numbness in the right upper extremity. Clinically, there is concern for a possible biceps tendon injury, given the presence of the lump and mild asymmetry in strength, though the patient denies significant weakness. Lateral epicondylitis was considered but is unlikely, as the patient does not present with hallmark symptoms such as localized lateral elbow pain or pain with resisted wrist extension. 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 95# (L), with a QuickDASH score of 34.1%, indicating moderate functional limitations. Despite these limitations, the patient has opted for a home exercise program (HEP) over in-clinic therapy due to scheduling conflicts and reporting his is scheduled to have knee surgery next week. Frequency and Duration: The patient will be seen 1 -2 visits over 4 weeks (per pt. 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 Electronically Signed By: Unique Cobos MS OTR/L Please Sign and return to therapist. Thank you once again for your referral.
== END 2025-03-01 08:48 | disposition home or self-care (01) ==
LOC: HO.OTS 09:00
PROVIDERS: PCP Internal Medicine; Visit Provider Internal Medicine
DX: M77.10 Lateral epicondylitis, unspecified elbow (principal)
CPT/HCPCS: 97110; 97165

== ENCOUNTER 2024-12-14 12:22 | Outpatient (AMB) | payer MEDICARE, SELFPAY ==
--- NOTE | 2024-12-14 12:30 | MHC.OFFVIS ---
Vital Signs 12/14/24 12:31 Height 5 ft 8 in Weight 222 lb 10.67 oz BMI 33.9 BP 117/77 Blood Pressure Location Lt brachial Position Sitting Pulse 75 Intake Visit Reasons: s/p EGD/colonoscopy Intake Note: Bert presents in the office as a follow up for his EGD and COLO. CC: Here for results to is procedures - states that he is concerned of results. [employer] Internet Sales Consultant Required: Yes [employer] Internet Sales Consultant Name: Venkat [id number] Allergies No Known Allergies Allergy (Verified 12/14/24 12:34) HPI HPI s/p EGD/colonoscopy: Details: Assessment & Plan (1) RUQ abdominal pain: Code(s): R10.11 - Right upper quadrant pain Category: Medical (2) Chronic idiopathic constipation: Code(s): K59.04 - Chronic idiopathic constipation Category: Medical (3) Constipation: Code(s): K59.00 - Constipation, unspecified Category: Medical (4) GERD (gastroesophageal reflux disease): Code(s): K21.9 - Gastro-esophageal reflux disease without esophagitis Category: Medical Plan [place] #[id number] Patient was last seen 09/2023 [place] [facility] [place] So fare the pain in the RUQ does not appear to be GB or spinal, so CIC is in the ddx as well as PUD. He IS using Miralax w/o sufficient relief. He has an appointment to see me s/p procedures 09/13. Medications: Refilled pantoprazole 40 mg PO DAILY 90 tabs 2RF polyethylene glycol 3350 (Miralax) 17 grams PO .qhs 10,530 grams 1RF 90 days K59.00 - Constipation, unspecified famotidine (Pepcid) 40 mg PO BEDTIME 90 tabs 1RF 90 days peg 3350-electrolytes 236-22.74-6.74 -5.86 gram (Golytely) until fecal effluent is clear; do not exceed a total volume of 2,000 mL 240 mL PO Q10M 4,000 mL 0RF 1 day Z12.11 - Encounter for screening for malignant neoplasm of colon bisacodyl (Dulcolax (bisacodyl)) 10 mg (2 x 5 mg) PO BEDTIME 4 tabs 0RF 2 days Orders: Orders XR abdomen w decubitus Today R10.9 - Unspecified abdominal pain XR thoracic spine 2V Today R10.9 - Unspecified abdominal pain EGD/[place] Combo - GI Use Only Today D12.6 - Benign neoplasm of colon, unspecified, K21.9 - Gastro-esophageal reflux disease without esophagitis, K29.70 - Gastritis, unspecified, without bleeding, Z01.818 - Encounter for other preprocedural examination Medications: New linaclotide (Linzess) 72 mcg PO QAM 30 caps 6RF K59.04 - Chronic idiopathic constipation linaclotide (Linzess) 72 mcg PO QAM 30 caps 6RF K59.04 - Chronic idiopathic constipation Refilled peg 3350-electrolytes 236-22.74-6.74 -5.86 gram (Golytely) until fecal effluent is clear; do not exceed a total volume of 2,000 mL 240 mL PO Q10M 1 day 4,000 mL 0RF Z12.11 - Encounter for screening for malignant neoplasm of colon peg 3350-electrolytes 236-22.74-6.74 -5.86 gram (Golytely) until fecal effluent is clear; do not exceed a total volume of 2,000 mL 240 mL PO Q10M 1 day 4,000 mL 0RF Z12.11 - Encounter for screening for malignant neoplasm of colon pantoprazole 40 mg PO DAILY 90 tabs 2RF famotidine (Pepcid) 40 mg PO BEDTIME 90 days 90 tabs 1RF famotidine (Pepcid) 40 mg PO BEDTIME 90 days 90 tabs 1RF pantoprazole 40 mg PO DAILY 90 tabs 2RF X-ray of the abdomen and thoracic spine 04/11/24 FINDINGS: Minimal S-shaped scoliosis. Vertebral body heights are maintained. Minimal degenerative changes in the thoracic spine. Paraspinous lines appear normal. The included lungs are clear. XR/XR thoracic spine 2V IMPRESSION: Mild scoliosis. Mild degenerative changes. No compression fracture. ULTRASOUND OF THE ABDOMEN (ORDERED BY PCP) 06/19/24 FINDINGS: PANCREAS: The visualized portion of the pancreas head and body are normal, portion of the pancreatic body and tail, not visualized are obscured by bowel gas. LIVER: The liver is normal in size. The liver contour is normal. Increased echogenicity of the liver parenchyma, this can be seen in the setting of hepatic steatosis or liver parenchymal disease. No focal hepatic lesion. There is no intrahepatic biliary duct dilatation seen. GALLBLADDER: Normal. The gallbladder is physiologically distended without evidence of stones, sludge, polyps, wall thickening or pericholecystic fluid. COMMON BILE DUCT: Normal in caliber measuring 0.32 cm in diameter. RIGHT KIDNEY: Normal. No hydronephrosis. No renal calculi or focal parenchymal lesions. The kidney measures 11.1 cm in maximum dimension. FREE FLUID: None. US/US abdomen limited IMPRESSION: 1. No ultrasound evidence of gallbladder disease or gallstones. 2. Increased echogenicity of the liver parenchyma, this can be seen in the setting of hepatic steatosis or liver parenchymal disease. EGD/Colonoscopy 08/29/24 Findings: Terminal Ileum: Not evaluated Cecum: Normal Ascending Colon: A 10-12 mm sessile polyp in the distal AC - removed with a stiff hot snare Transverse Colon: A 10-12 mm sessile polyp - removed with a stiff hot snare Descending Colon: A 10-12 mm sessile polyp - removed with a stiff hot snare Sigmoid Colon: Moderate diverticulosis Rectum: Normal Ano-rectum: Moderate internal hemorrhoids Impression and Post Procedure Diagnosis: Endoscopy Findings: ESOPHAGUS: Normal STOMACH: Moderate diffuse gastric erythema - biopsies were obtained from the gastric body and antrum. DUODENUM: Normal - biopsied to check for celiac sprue Colonoscopy Findings: Three medium sized polyps were removed Moderate diverticulosis seen in the sigmoid colon Moderate hemorrhoids on retroflexed exam. Plan: Pt has a FU appointment on 09/13/24 with Christi Harrison NP. Repeat Colonoscopy in 3 years if polyps are adenomatous and due to a history of multiple adenomatous polyps (Of note nine polyps were removed during previous colonoscopy in 07/2022) Biopsy Received: 08/29/24 Diagnosis A. Small bowel, biopsy: Small intestinal mucosa within normal limits. B. Stomach, antrum, biopsy: - Antral-type mucosa with mild chronic inactive inflammation; no Helicobacter organisms seen. - Rare forms suspicious for H pylori identified. C. Stomach, body, biopsy: Oxyntic mucosa with mild chronic inactive inflammation; no Helicobacter organisms seen. D. Colon, ascending, polypectomy: Fragments of sessile serrated lesion/polyp; negative for cytologic dysplasia. E. Colon, transverse, polypectomy: Colonic mucosa with mild surface hyperplastic changes. F. Colon, descending, polypectomy: Tubular adenoma; negative for high-grade dysplasia or carcinoma TODAY'S VISIT [place] #[id number] Colonoscopy needs to be repeated in 3 years due the finding of 2 greater than 1 cm TA is in the ascending and descending colon. He also has a history of prior multiple polyposis. The procedure was well tolerated. The results were explained and the patient is agreeable to the follow-up interval as stated. Education was provided to tell any 1st degree relatives about their findings to be sure that they are screened by age 45. Educated that they will be put on a recall list when it is time for their repeat scope but should they move out of state or away from the hospital they will need to remember along with their primary to repeat the procedure in a timely fashion to avoid any adverse complications. EGD showed rare H pylori, and Dr. Koroma send triple therapy which he completed in October. He has been having a feeling of discomfort over jennifer left breast for 3 weeks or so that radiates under the ribs. He also is constipated constantly. He also has cold sweats and SOB generally. He generally feels unwell and he really looks like he does not feel well today. The chest pain does not necessarily worsen with exertion but he does note that he is not walking as much as he did in the past. He has not measured his temperature to know if he has actual fevers. He has trouble identify any particular exacerbating or remitting factors of the chest discomfort. He can not identify any medicine changes, preceding illness or sick contacts prior to the sudden onset of the symptoms. Does have a history of acute respiratory failure and sepsis secondary to COVID in 2020. He is obese with a BMI of 33 and has high cholesterol so the differential diagnosis is why but I would like to immediately exclude acute cardiac disease (he is unwilling to present to the ER), or something like acute pneumonia. It is entirely possible that this is somehow related to his antibiotic treatment causing worsening GERD; possibly because the bacteria was not killed in his bouncing back. Constipation certainly could be contributing to a feeling of fullness and some degree of restrictive lung disease contributing to his shortness of breath. He does have a pre-existing diagnosis of angina on his history with note of a negative stress test in 2021, however I am uncertain where this stress test was performed since I do not see it at this facility or under [facility] medical records. Even so, this does not rule out new disease. To date it is unknown whether he has any underlying respiratory disease such as COPD or asthma. Family history is significant for stroke in his mother but no cardiac disease at least on the record. In terms of potential GERD as a trigger he is not taking his pantoprazole every day is only taking it as needed. I am not sure this is the best strategy, but will know more and we see how the H pylori treatment as progressed. Will get EGD, CXR, trop, CBC and chem panel, US abd (r/o GB or pancreatic problems), HP stool. DDX is wide. ROV 2 weeks. Re start Linzess 72mcg. [facility] Medical History (Updated 12/14/24 @ 13:33 by PATRIZIA Nguyễn) Constipation Thoracic back pain Left flank pain Mass of right upper extremity Tennis elbow Diastasis of rectus abdominis Oropharyngeal dysphagia Pre-op examination Gastritis Epigastric pain COVID-19 Abdominal pain H. pylori infection Annual physical exam Knee pain, left Angina pectoris Hyperlipidemia AIKEN (dyspnea on exertion) Vitamin D deficiency Hyperglycemia Fatigue Sciatica Neuropathy Diverticulitis Abdominal pain Chronic rhinitis Kidney stones Surgical History (Updated 12/14/24 @ 13:33 by PATRIZIA Nguyễn) H/O colonoscopy History of esophagogastroduodenoscopy (EGD) Family History Father Lung cancer Mother Stroke Social History Household Members Other:: from [facility] Housing: House Alcohol intake: never Patient Tobacco Use Status: Former Tobacco user e-Cigarette/Vaping Use: Never Used Advance Directives Date on File: 08/29/24 service: No Current occupational status: employed Cognitive needs: No Hearing needs: No Vision needs: No Review of Systems Const Reports excessive sweating, Denies fatigue, Denies fever(s), Reports malaise, Denies night sweats, Denies poor appetite and Denies weight loss ENT Reports Normal hearing present, Denies dental pain, Denies dysphagia, Denies hearing loss, Denies mouth pain, Denies odynophagia, Denies throat swelling, Denies tongue swelling and Reports other (Dentition adequate) Card Reports chest pain, Reports diaphoresis and Reports dyspnea Resp Denies chest congestion, Denies cough and Reports dyspnea GI Details: Reports abdominal pain, Denies melena, Denies bloating, Denies hematochezia, Reports constipation, Denies GI cramping, Denies dysphagia, Denies excessive flatus, Denies early satiety, Reports heartburn, Denies diarrhea, Denies nausea, Denies odynophagia, Denies vomiting and Denies hematemesis Musc Reports myalgias Skin/Breast Denies pruritus, Denies lesions, Denies rash and Denies jaundice Neuro Reports Normal hearing present and Denies Abnormal speech present Endo Reports excessive sweating and Denies fatigue Aller/Immun Denies throat swelling and Denies tongue swelling Physical Exam Vital Signs: Last Vital Signs Pulse 75 12/14/24 12:31 BP 117/77 12/14/24 12:31 BMI result Body Mass Index 33.9 Const General: cooperative, no acute distress, well developed, ill appearing, tired appearing and well groomed Nutritional Appearance: well nourished and obese Orientation/consciousness: oriented to person, oriented to place and oriented to time Limitations: language barrier HEENT Head: Yes normocephalic and Yes atraumatic Eyes General: appearance normal, both eyes and all related structures Conjunctivae: conjunctival abnormal bilateral pallor Pupils: Equal, round and reactive pupils present Neck Neck: Yes normal visual inspection and Yes no lymphadenopathy Thyroid: Thyroid normal Resp Effort & Inspection: normal respiratory effort and able to speak in complete sentences Auscultation: clear to auscultation bilaterally Cardio Rate: regular rate Rhythm: regular rhythm Heart sounds: Normal, physiologic split S2 sound present Peripheral pulses: radial pulses present and posterior tibial pulses present GI Inspection: No distended, No Abdominal panniculus present and Yes obesity Palpation (GI): Soft to palpation, nontender, no guarding, not rigid and No hepatosplenomegaly present Percussion: Yes normal to percussion Auscultation: normal bowel sounds Rectal Exam - Male: Yes deferred Skin General skin exam: no rashes or lesions noted, turgor normal, skin not dry, no jaundice, No spider nevi and no striae Rashes: no rashes Nails: normal Neuro General: oriented to person, oriented to place and oriented to time Cranial nerves: Yes Equal, round and reactive pupils present and Yes Normal hearing present Speech: No Abnormal speech present Extrem General: Yes normal to inspection, No clubbing, No cyanosis and Yes edema (Pitting bilateral ankles) Psych Appearance: grossly normal and well kempt Mental Status: mental status grossly normal Speech and movement: Normal speech and movement present Affect: normal affect Attitude: cooperative Thought process: Circumstantial thought process present and not confabulating Thought content: Normal thought content present Insight: Fair insight present (Psych) and Limited insight present (Psych) Judgement: Fair judgement present (Psych) and Limited judgement present (Psych) Results Reviewed Results Reviewed: X-ray of the abdomen and thoracic spine 04/11/24 FINDINGS: Minimal S-shaped scoliosis. Vertebral body heights are maintained. Minimal degenerative changes in the thoracic spine. Paraspinous lines appear normal. The included lungs are clear. XR/XR thoracic spine 2V IMPRESSION: Mild scoliosis. Mild degenerative changes. No compression fracture. ULTRASOUND OF THE ABDOMEN (ORDERED BY PCP) 06/19/24 FINDINGS: PANCREAS: The visualized portion of the pancreas head and body are normal, portion of the pancreatic body and tail, not visualized are obscured by bowel gas. LIVER: The liver is normal in size. The liver contour is normal. Increased echogenicity of the liver parenchyma, this can be seen in the setting of hepatic steatosis or liver parenchymal disease. No focal hepatic lesion. There is no intrahepatic biliary duct dilatation seen. GALLBLADDER: Normal. The gallbladder is physiologically distended without evidence of stones, sludge, polyps, wall thickening or pericholecystic fluid. COMMON BILE DUCT: Normal in caliber measuring 0.32 cm in diameter. RIGHT KIDNEY: Normal. No hydronephrosis. No renal calculi or focal parenchymal lesions. The kidney measures 11.1 cm in maximum dimension. FREE FLUID: None. US/US abdomen limited IMPRESSION: 1. No ultrasound evidence of gallbladder disease or gallstones. 2. Increased echogenicity of the liver parenchyma, this can be seen in the setting of hepatic steatosis or liver parenchymal disease. EGD/Colonoscopy 08/29/24 Findings: Terminal Ileum: Not evaluated Cecum: Normal Ascending Colon: A 10-12 mm sessile polyp in the distal AC - removed with a stiff hot snare Transverse Colon: A 10-12 mm sessile polyp - removed with a stiff hot snare Descending Colon: A 10-12 mm sessile polyp - removed with a stiff hot snare Sigmoid Colon: Moderate diverticulosis Rectum: Normal Ano-rectum: Moderate internal hemorrhoids Impression and Post Procedure Diagnosis: Endoscopy Findings: ESOPHAGUS: Normal STOMACH: Moderate diffuse gastric erythema - biopsies were obtained from the gastric body and antrum. DUODENUM: Normal - biopsied to check for celiac sprue Colonoscopy Findings: Three medium sized polyps were removed Moderate diverticulosis seen in the sigmoid colon Moderate hemorrhoids on retroflexed exam. Plan: Pt has a FU appointment on 09/13/24 with Christi Harrison NP. Repeat Colonoscopy in 3 years if polyps are adenomatous and due to a history of multiple adenomatous polyps (Of note nine polyps were removed during previous colonoscopy in 07/2022) Biopsy Received: 08/29/24 Diagnosis A. Small bowel, biopsy: Small intestinal mucosa within normal limits. B. Stomach, antrum, biopsy: - Antral-type mucosa with mild chronic inactive inflammation; no Helicobacter organisms seen. - Rare forms suspicious for H pylori identified. C. Stomach, body, biopsy: Oxyntic mucosa with mild chronic inactive inflammation; no Helicobacter organisms seen. D. Colon, ascending, polypectomy: Fragments of sessile serrated lesion/polyp; negative for cytologic dysplasia. E. Colon, transverse, polypectomy: Colonic mucosa with mild surface hyperplastic changes. F. Colon, descending, polypectomy: Tubular adenoma; negative for high-grade dysplasia or carcinoma Assessment & Plan Assessment & Plan (1) Chest pain: Code(s): R07.9 - Chest pain, unspecified Category: Medical (2) RUQ abdominal pain: Code(s): R10.11 - Right upper quadrant pain Category: Medical (3) Helicobacter pylori gastritis: Code(s): K29.70 - Gastritis, unspecified, without bleeding; B96.81 - Helicobacter pylori [H. pylori] as the cause of diseases classified elsewhere Category: Medical (4) Chronic idiopathic constipation: Code(s): K59.04 - Chronic idiopathic constipation Category: Medical (5) GERD (gastroesophageal reflux disease): Code(s): K21.9 - Gastro-esophageal reflux disease without esophagitis Category: Medical (6) Tubular adenoma of colon: Comment: 08/2024= 2 large TA is repeat in 3 years; Multiple adenomas 9 on 2021 scope, also had multiple lost 2019 scope [facility] Code(s): D12.6 - Benign neoplasm of colon, unspecified Category: Medical (7) Fatigue: Code(s): R53.83 - Other fatigue Category: Medical Plan [place] #[id number] Colonoscopy needs to be repeated in 3 years due the finding of 2 greater than 1 cm TA is in the ascending and descending colon. He also has a history of prior multiple polyposis. The procedure was well tolerated. The results were explained and the patient is agreeable to the follow-up interval as stated. Education was provided to tell any 1st degree relatives about their findings to be sure that they are screened by age 45. Educated that they will be put on a recall list when it is time for their repeat scope but should they move out of state or away from the hospital they will need to remember along with their primary to repeat the procedure in a timely fashion to avoid any adverse complications. EGD showed rare H pylori, and Dr. Koroma send triple therapy which he completed in October. He has been having a feeling of discomfort over jennifer left breast for 3 weeks or so that radiates under the ribs. He also is constipated constantly. He also has cold sweats and SOB generally. He generally feels unwell and he really looks like he does not feel well today. The chest pain does not necessarily worsen with exertion but he does note that he is not walking as much as he did in the past. He has not measured his temperature to know if he has actual fevers. He has trouble identify any particular exacerbating or remitting factors of the chest discomfort. He can not identify any medicine changes, preceding illness or sick contacts prior to the sudden onset of the symptoms. Does have a history of acute respiratory failure and sepsis secondary to COVID in 2020. He is obese with a BMI of 33 and has high cholesterol so the differential diagnosis is why but I would like to immediately exclude acute cardiac disease (he is unwilling to present to the ER), or something like acute pneumonia. It is entirely possible that this is somehow related to his antibiotic treatment causing worsening GERD; possibly because the bacteria was not killed in his bouncing back. Constipation certainly could be contributing to a feeling of fullness and some degree of restrictive lung disease contributing to his shortness of breath. He does have a pre-existing diagnosis of angina on his history with note of a negative stress test in 2021, however I am uncertain where this stress test was performed since I do not see it at this facility or under [facility] medical records. Even so, this does not rule out new disease. To date it is unknown whether he has any underlying respiratory disease such as COPD or asthma. Family history is significant for stroke in his mother but no cardiac disease at least on the record. In terms of potential GERD as a trigger he is not taking his pantoprazole every day is only taking it as needed. I am not sure this is the best strategy, but will know more and we see how the H pylori treatment as progressed. Will get EGD, CXR, trop, CBC and chem panel, US abd (r/o GB or pancreatic problems), HP stool. DDX is wide. ROV 2 weeks. Re start Linzess 72mcg. Orders: Orders Complete Blood Count Auto Diff Today R07.9 - Chest pain, unspecified, R10.11 - Right upper quadrant pain Amylase Today R07.9 - Chest pain, unspecified UA CC w/rflx Micro + Cult Today R10.11 - Right upper quadrant pain ECG 12 lead EKG Today R07.9 - Chest pain, unspecified Troponin-I High Sensitivity Today R07.9 - Chest pain, unspecified Comprehensive Met. Panel Today R07.9 - Chest pain, unspecified, R10.11 - Right upper quadrant pain Lipase Today R07.9 - Chest pain, unspecified XR chest 2V Today R07.9 - Chest pain, unspecified H pylori Ag Stool Today B96.81 - Helicobacter pylori [H. pylori] as the cause of diseases classified elsewhere, K29.70 - Gastritis, unspecified, without bleeding Medications: Refilled famotidine (Pepcid) 40 mg PO BEDTIME 90 days 90 tabs 1RF pantoprazole 40 mg PO DAILY 90 tabs 2RF linaclotide (Linzess) 72 mcg PO QAM 30 caps 6RF K59.04 - Chronic idiopathic constipation Discontinued polyethylene glycol 3350 (Miralax) Discontinued Reason: Patient no longer taking 17 grams PO .qhs 90 days 10,530 grams 1RF K59.00 - Constipation, unspecified Coding Level of Care Code Est Pt Level 4 (08821) Diagnoses Chest pain R07.9 RUQ abdominal pain R10.11 Helicobacter pylori gastritis K29.70; B96.81 Chronic idiopathic constipation K59.04 GERD (gastroesophageal reflux disease) K21.9 Tubular adenoma of colon D12.6 Fatigue R53.83 Time Spent (min) 39
[2024-12-14 12:31] VITALS: BP 117/77; PULSE 75; BMI 33.9
--- OUTSIDE RECORDS SUMMARY | 2024-12-14 12:51 | XMS_ITS | Clinical Summary ---
Author Organization [facility] Facility Address [address] [address] Care Team Providers Care Rail Car Maintenance Mechanic Name Role Phone Peggy Coyne MD Primary Care Provider [phone] Social History Tobacco Use Types Packs/Day Years [...] Colorectal Cancer Screening: Sigmoidoscopy 01/29/2008 Pneumococcal Vaccine: 50+ Ye ars (1 - PCV) 2009 Influenza Vaccine (Season Ended) 2025 Hepatitis B Vaccine Aged Out No longe r eligible based on patient's age to complete this topic Insurance [facility] [employer] Care Teams Rail Car Maintenance Mechanic Relationship Specialty Start Date End Date Peggy Coyne MD [address] [place] [id number] PCP - General Internal Medicine 07/24/21
== END 2024-12-14 13:46 | disposition home or self-care (01) ==
LOC: HO.HGI 12:23
PROVIDERS: PCP Internal Medicine; Visit Provider Nurse Practitioner
DX: R07.9 Chest pain, unspecified (principal); R10.11 Right upper quadrant pain; K29.70 Gastritis, unspecified, without bleeding; B96.81 Helicobacter pylori [H. pylori] as the cause of diseases classified elsewhere; K59.04 Chronic idiopathic constipation; K21.9 Gastro-esophageal reflux disease without esophagitis; D12.6 Benign neoplasm of colon, unspecified; R53.83 Other fatigue
CPT/HCPCS: 99214

== ENCOUNTER 2024-12-14 13:24 | Outpatient (REF) | payer MEDICARE, SELFPAY ==
--- NOTE | ~2024-12-14 | XR_ITS ---
EXAMINATION: XR CHEST CLINICAL INFORMATION: R07.9 - Chest pain, unspecified COMPARISON: 11/14/2021 TECHNIQUE: 2 views of the chest were obtained. FINDINGS: No significant abnormality is noted involving the heart, lungs, mediastinum, bony thorax or soft tissues. XR/XR chest 2V IMPRESSION: Unremarkable chest examination. Electronically signed by: Darian Car MD 12/14/2024 01:49 PM EDT RP
[2024-12-14 13:58] LABS: MANUAL DIFF FLAG NO
[2024-12-14 14:23] LABS: Basophils Percent Auto 0.5 % (0-2); Eosinophils Absolute Auto 0.2 X10*3/uL (0.0-0.4); Eosinophils Percent Auto 2.2 % (0-4); Hematocrit 39.3 % (42.0-52.0); Hemoglobin 13.6 g/dl (14.0-18.0); Imm Gran Abs Auto 0.02 X10*3/uL (0.00-0.03); Imm Gran Pct Auto 0.2 % (0.0-0.4); Lymphocytes Absolute Auto 4.6 X10*3/uL (1.2-4.9); Lymphocytes Percent Auto 54.4 % (20-40); Mean Corpuscular HGB Conc 34.6 g/dl (31.0-36.0); Mean Corpuscular Volume 89.5 fL (80.0-98.0); Mean Platelet Volume 10.2 fL (9.4-12.4); Monocytes Absolute Auto 0.6 X10*3/uL (0.1-1.2); Monocytes Percent Auto 6.6 % (2-11); Neutrophils Absolute Auto 3.1 x10*3/uL (2.0-8.3); Neutrophils Percent Auto 36.1 % (45-73); Platelet Count 235 X10*3/uL (160-400); Red Blood Count 4.39 X10*6/uL (4.60-5.80); Red Cell Distribution Width 12.6 % (11.0-16.0); White Blood Count 8.5 X10*3/uL (4.8-10.8)
[2024-12-14 14:34] LABS: Appearance Urine Clear; Color Urine Yellow; Glucose Urine UA Negative (Negative); Leukocyte Esterase Urine Negative (Negative); Nitrite Urine Negative (Negative); PH 6.5 (5.0-9.0); Urine Blood Negative (Negative); Urine Ketones Negative (Negative); Urine Protein Negative (Neg-Trace)
[2024-12-14 14:42] LABS: Alanine Aminotransferase 17 U/L (0-40); Albumin Level 4.1 g/dL (3.5-5.0); Anion Gap 12 (12-20); Aspartate Amino Transferase 21 U/L (5-37); Bilirubin Total 0.4 mg/dL (0.0-1.0); Blood Urea Nitrogen 23 mg/dL (9-16); Calcium 9.1 mg/dL (8.4-10.2); Carbon Dioxide 24 mmol/L (22-29); Chloride 108 mmol/L (96-108); Estimated Glomerular Filt Rate > 60; Glucose Random 108 mg/dL (60-115); Lipase 21 U/L (8-78); Potassium 3.9 mmol/L (3.3-5.1); Sodium 140 mmol/L (135-145)
[2024-12-14 14:44] LABS: Troponin-I High Sensitivity < 2.7 ng/L (<3.5-35.0)
[2024-12-14 16:50] LABS: Alkaline Phosphatase 51 U/L (39-117); Amylase 35 U/L (28-100)
== END 2024-12-14 13:25 | disposition home or self-care (01) ==
LOC: HO.XRAY 13:24
PROVIDERS: PCP Nurse Practitioner; Visit Provider Nurse Practitioner
DX: R07.9 Chest pain, unspecified (principal); R10.11 Right upper quadrant pain; K29.70 Gastritis, unspecified, without bleeding; B96.81 Helicobacter pylori [H. pylori] as the cause of diseases classified elsewhere; K21.9 Gastro-esophageal reflux disease without esophagitis; D12.6 Benign neoplasm of colon, unspecified; R53.83 Other fatigue
CPT/HCPCS: 36415; 71046; 80053; 81003; 82150; 83690; 84484; 85025; 99212

== ENCOUNTER → 2024-12-14 13:26 | Outpatient (BNV) | payer MEDICARE, SELFPAY | PROVIDERS: PCP Nurse Practitioner; Visit Provider Radiology Diagnostic Radiology | DX: R07.9 Chest pain, unspecified (principal) | CPT/HCPCS: 71046 ==

== ENCOUNTER 2024-12-15 11:42 | Outpatient (REF) | payer MEDICARE, SELFPAY ==
--- OUTSIDE RECORDS SUMMARY | 2024-12-15 12:48 | XMS_ITS | Clinical Summary ---
Author Organization [facility] Facility Address [address] [address] Care Team Providers Care Wood Pattern Maker Name Role Phone Peggy Coyne MD Primary Care Provider [phone] Social History Tobacco Use Types Packs/Day Years [...] patient's age to complete this topic Insurance [facility] [employer] Care Teams Wood Pattern Maker Relationship Specialty Start Date End Date Peggy Coyne MD 1962 [place] [address] PCP - General Internal Medicine 07/24/21
== END 2024-12-15 11:43 | disposition home or self-care (01) ==
LOC: HO.LNP 11:42
PROVIDERS: Visit Provider Nurse Practitioner
DX: K29.70 Gastritis, unspecified, without bleeding (principal); B96.81 Helicobacter pylori [H. pylori] as the cause of diseases classified elsewhere
CPT/HCPCS: 87338

== ENCOUNTER 2024-12-30 15:18 | Outpatient (AMB) | payer MEDICARE, SELFPAY ==
--- NOTE | 2024-12-30 15:23 | MHC.OFFVIS ---
Vital Signs 12/30/24 15:48 Height 5 ft 8 in Weight 220 lb BMI 33.4 BP 136/86 Blood Pressure Location Lt brachial Position Sitting Pulse 64 Pulse Source Pulse Oximeter Pulse Oximetry (%) 97 Oxygen Delivery Method Room Air Intake Visit Reasons: 2 week FUV requested per November Intake Note: Patient follow up for Gastritis Patient cc: C.O. constipation persistence. Pt has not been able to get his linzess as of now due to high cost + financial burden. Pt states that his linzess costs ~ $400 and as such, he cannot afford that medication. Pt does confirm that his PPI is covered and has been helping with his reflux to this point. Ultimate Hoops Scoreboard Operator Required: Yes Ultimate Hoops Scoreboard Operator Services: Ultimate Hoops Scoreboard Operator Present Ultimate Hoops Scoreboard Operator Name: Ahsan [id number] Information Interpreted: clinical only Accompanied by: Self / Same As Patient Allergies No Known Allergies Allergy (Verified 12/30/24 15:41) HPI HPI 2 week FUV requested per November: Details: Assessment & Plan (1) Chest pain: Code(s): R07.9 - Chest pain, unspecified Category: Medical (2) RUQ abdominal pain: Code(s): R10.11 - Right upper quadrant pain Category: Medical (3) Helicobacter pylori gastritis: Code(s): K29.70 - Gastritis, unspecified, without bleeding; B96.81 - Helicobacter pylori [H. pylori] as the cause of diseases classified elsewhere Category: Medical (4) Chronic idiopathic constipation: Code(s): K59.04 - Chronic idiopathic constipation Category: Medical (5) GERD (gastroesophageal reflux disease): Code(s): K21.9 - Gastro-esophageal reflux disease without esophagitis Category: Medical (6) Tubular adenoma of colon: Comment: 08/2024= 2 large TA is repeat in 3 years; Multiple adenomas 9 on 2021 scope, also had multiple lost 2019 scope [facility] Code(s): D12.6 - Benign neoplasm of colon, unspecified Category: Medical (7) Fatigue: Code(s): R53.83 - Other fatigue Category: Medical Plan [place] #[id number] Colonoscopy needs to be repeated in 3 years due the finding of 2 greater than 1 cm TA is in the ascending and descending colon. He also has a history of prior multiple polyposis. The procedure was well tolerated. The results were explained and the patient is agreeable to the follow-up interval as stated. Education was provided to tell any 1st degree relatives about their findings to be sure that they are screened by age 45. Educated that they will be put on a recall list when it is time for their repeat scope but should they move out of state or away from the hospital they will need to remember along with their primary to repeat the procedure in a timely fashion to avoid any adverse complications. EGD showed rare H pylori, and Dr. Koroma send triple therapy which he completed in October. He has been having a feeling of discomfort over jennifer left breast for 3 weeks or so that radiates under the ribs. He also is constipated constantly. He also has cold sweats and SOB generally. He generally feels unwell and he really looks like he does not feel well today. The chest pain does not necessarily worsen with exertion but he does note that he is not walking as much as he did in the past. He has not measured his temperature to know if he has actual fevers. He has trouble identify any particular exacerbating or remitting factors of the chest discomfort. He can not identify any medicine changes, preceding illness or sick contacts prior to the sudden onset of the symptoms. Does have a history of acute respiratory failure and sepsis secondary to COVID in 2020. He is obese with a BMI of 33 and has high cholesterol so the differential diagnosis is why but I would like to immediately exclude acute cardiac disease (he is unwilling to present to the ER), or something like acute pneumonia. It is entirely possible that this is somehow related to his antibiotic treatment causing worsening GERD; possibly because the bacteria was not killed in his bouncing back. Constipation certainly could be contributing to a feeling of fullness and some degree of restrictive lung disease contributing to his shortness of breath. He does have a pre-existing diagnosis of angina on his history with note of a negative stress test in 2021, however I am uncertain where this stress test was performed since I do not see it at this facility or under [facility] medical records. Even so, this does not rule out new disease. To date it is unknown whether he has any underlying respiratory disease such as COPD or asthma. Family history is significant for stroke in his mother but no cardiac disease at least on the record. In terms of potential GERD as a trigger he is not taking his pantoprazole every day is only taking it as needed. I am not sure this is the best strategy, but will know more and we see how the H pylori treatment as progressed. Will get EGD, CXR, trop, CBC and chem panel, US abd (r/o GB or pancreatic problems), HP stool. DDX is wide. ROV 2 weeks. Re start Linzess 72mcg. Orders: Orders Complete Blood Count Auto Diff Today R07.9 - Chest pain, unspecified, R10.11 - Right upper quadrant pain Amylase Today R07.9 - Chest pain, unspecified UA CC w/rflx Micro + Cult Today R10.11 - Right upper quadrant pain ECG 12 lead EKG Today R07.9 - Chest pain, unspecified Troponin-I High Sensitivity Today R07.9 - Chest pain, unspecified Comprehensive Met. Panel Today R07.9 - Chest pain, unspecified, R10.11 - Right upper quadrant pain Lipase Today R07.9 - Chest pain, unspecified XR chest 2V Today R07.9 - Chest pain, unspecified H pylori Ag Stool Today B96.81 - Helicobacter pylori [H. pylori] as the cause of diseases classified elsewhere, K29.70 - Gastritis, unspecified, without bleeding Medications: Refilled famotidine (Pepcid) 40 mg PO BEDTIME 90 days 90 tabs 1RF pantoprazole 40 mg PO DAILY 90 tabs 2RF linaclotide (Linzess) 72 mcg PO QAM 30 caps 6RF K59.04 - Chronic idiopathic constipation Discontinued polyethylene glycol 3350 (Miralax) Discontinued Reason: Patient no longer taking 17 grams PO .qhs 90 days 10,530 grams 1RF K59.00 - Constipation, unspecified LABS: Laboratory Tests 12/14/24 12/15/24 13:58 10:00 WBC 8.5 Hgb 13.6 L Hct 39.3 L MCV 89.5 MCH 31.0 Plt Count 235 Estimated GFR > 60 Total Bilirubin 0.4 AST 21 ALT 17 Alkaline Phosphatase 51 Troponin I High Sens < 2.7 Amylase 35 Lipase 21 Stool H. pylori Ag negative 12/14/24-1347 OTHR : ORDERED: Ua Clean Catch QUERIES: Source: Urine, Clean Catch Test Result Flag Reference Ur Color Yellow Ur Appear Clear PH 6.5 5.0-9.0 Ur Glu Negative Negative mg/dL Urine Blood Negative Negative Spec [place] Ur 1.020 1.005-1.025 Urine Protein Negative Neg-Trace mg/dL Urine Ketones Negative Negative mg/dL Ur Nitrite Negative Negative Ur Eloisa Esterase Negative Negative CHEST X-RAY 12/15/2019 FINDINGS: No significant abnormality is noted involving the heart, lungs, mediastinum, bony thorax or soft tissues. XR/XR chest 2V IMPRESSION: Unremarkable chest examination. EKG CORRESPONDENCE On 07/19/24 @ 13:18 Anushka Rodriguez Wrote To Christi Harrison the issue is not that it requires a PA - the issue is that the copay for the patient for 1mos supply is $266 On 07/19/24 @ 12:58 Christi Harrison Wrote To Anushka Rodriguez Was rx'ed this in Sep but pt tells me that he did not receive it r/t insurance. He has failed all OTC's so please advise TODAY'S VISIT Gu[place]an #[id number] He was seen in the [facility] ER and had an EKG there. It appears that he has a relatively negative cardiac workup there is well except for some sinus bradycardia an intermittent PVCs. I review all of my labs and I can not find a reason for his general malaise either. Obviously this is a big workup and he is aware that he needs to follow-up with his primary care provider. He has had some trouble contacting his office and likely the language barrier is a big part of this, so I have my staff try to call to make him a follow-up but they say I will have to call back. He does have mild anemia but this seems to be unchanged and longstanding since 2021. He could not get the Linzess because it cost over 400 dollars with his insurance. I am going to try putting him on bisacodyl 2 tabs at bedtime and if it is not covered I did write it out for him as he can buy this inexpensively [id number]. Return office visit in 8 weeks to evaluate the bisacodyl [facility] Medical History (Updated 12/30/24 @ 17:08 by ROCCO NguyễnC) RUQ abdominal pain Constipation Thoracic back pain Left flank pain Mass of right upper extremity Tennis elbow Diastasis of rectus abdominis Oropharyngeal dysphagia Pre-op examination Gastritis Epigastric pain COVID-19 Abdominal pain H. pylori infection Annual physical exam Knee pain, left Angina pectoris Hyperlipidemia AIKEN (dyspnea on exertion) Vitamin D deficiency Hyperglycemia Fatigue Sciatica Neuropathy Diverticulitis Abdominal pain Chronic rhinitis Kidney stones Surgical History (Updated 12/14/24 @ 13:33 by PATRIZIA Nguyễn) H/O colonoscopy History of esophagogastroduodenoscopy (EGD) Family History Father Lung cancer Mother Stroke Social History Household Members Other:: from [facility] Housing: House Alcohol intake: never Patient Tobacco Use Status: Former Tobacco user e-Cigarette/Vaping Use: Never Used Advance Directives Date on File: 08/29/24 service: No Current occupational status: employed Cognitive needs: No Hearing needs: No Vision needs: No Review of Systems Const Reports fatigue, Denies fever(s), Reports malaise, Denies night sweats, Denies poor appetite and Denies weight loss ENT Reports Normal hearing present, Denies dental pain, Denies dysphagia, Denies hearing loss, Denies mouth pain, Denies odynophagia, Denies throat swelling, Denies tongue swelling and Reports other (Dentition adequate) Card Reports chest pain, Reports chest pain at rest and Reports dyspnea on exertion Resp Reports dyspnea on exertion GI Details: Denies abdominal pain, Denies melena, Denies bloating, Denies hematochezia, Reports constipation, Denies GI cramping, Denies dysphagia, Denies excessive flatus, Denies early satiety, Reports heartburn, Denies diarrhea, Denies nausea, Denies odynophagia, Denies vomiting and Denies hematemesis Musc Reports myalgias Skin/Breast Denies pruritus, Denies lesions, Denies rash and Denies jaundice Neuro Reports Normal hearing present and Denies Abnormal speech present Endo Reports fatigue Aller/Immun Denies throat swelling and Denies tongue swelling Physical Exam Const General: cooperative, no acute distress, well developed and well groomed Nutritional Appearance: well nourished and obese Orientation/consciousness: oriented to person, oriented to place and oriented to time Limitations: language barrier HEENT Head: Yes normocephalic and Yes atraumatic Eyes General: appearance normal, both eyes and all related structures Pupils: Equal, round and reactive pupils present Neck Neck: Yes normal visual inspection and Yes no lymphadenopathy Thyroid: Thyroid normal Resp Effort & Inspection: normal respiratory effort and able to speak in complete sentences Auscultation: clear to auscultation bilaterally Cardio Rate: regular rate Rhythm: regular rhythm Heart sounds: Normal, physiologic split S2 sound present Peripheral pulses: radial pulses present and posterior tibial pulses present GI Inspection: No distended, No Abdominal panniculus present and Yes obesity Palpation (GI): Soft to palpation, nontender, no guarding, not rigid and No hepatosplenomegaly present Percussion: Yes normal to percussion Auscultation: normal bowel sounds Rectal Exam - Male: Yes deferred Skin General skin exam: no rashes or lesions noted, turgor normal, skin not dry, no jaundice, No spider nevi and no striae Rashes: no rashes Nails: normal Neuro General: oriented to person, oriented to place and oriented to time Cranial nerves: Yes Equal, round and reactive pupils present and Yes Normal hearing present Speech: No Abnormal speech present Extrem General: Yes normal to inspection, No clubbing, No cyanosis and No edema Psych Appearance: grossly normal and well kempt Mental Status: mental status grossly normal Speech and movement: Normal speech and movement present Affect: normal affect Attitude: cooperative Thought process: Normal thought process present and not confabulating Thought content: Normal thought content present Insight: Limited insight present (Psych) Judgement: Limited judgement present (Psych) Results Reviewed Results Reviewed: Laboratory Tests 12/14/24 12/15/24 13:58 10:00 WBC 8.5 Hgb 13.6 L Hct 39.3 L MCV 89.5 MCH 31.0 Plt Count 235 Estimated GFR > 60 Total Bilirubin 0.4 AST 21 ALT 17 Alkaline Phosphatase 51 Troponin I High Sens < 2.7 Amylase 35 Lipase 21 Stool H. pylori Ag negative 12/14/24-[address]: ORDERED: Ua Clean Catch QUERIES: Source: Urine, Clean Catch Test Result Flag Reference Ur Color Yellow Ur Appear Clear PH 6.5 5.0-9.0 Ur Glu Negative Negative mg/dL Urine Blood Negative Negative Spec [place] Ur 1.020 1.005-1.025 Urine Protein Negative Neg-Trace mg/dL Urine Ketones Negative Negative mg/dL Ur Nitrite Negative Negative Ur Eloisa Esterase Negative Negative CHEST X-RAY 12/15/2019 FINDINGS: No significant abnormality is noted involving the heart, lungs, mediastinum, bony thorax or soft tissues. XR/XR chest 2V IMPRESSION: Unremarkable chest examination. Assessment & Plan Assessment & Plan (1) Chronic idiopathic constipation: Code(s): K59.04 - Chronic idiopathic constipation Category: Medical (2) Helicobacter pylori gastritis: Comment: Stool antigen 12/2024 negative after triple therapy Code(s): K29.70 - Gastritis, unspecified, without bleeding; B96.81 - Helicobacter pylori [H. pylori] as the cause of diseases classified elsewhere Category: Medical (3) GERD (gastroesophageal reflux disease): Code(s): K21.9 - Gastro-esophageal reflux disease without esophagitis Category: Medical Plan [place] #[id number] He was seen in the [facility] ER and had an EKG there. It appears that he has a relatively negative cardiac workup there is well except for some sinus bradycardia an intermittent PVCs. I review all of my labs and I can not find a reason for his general malaise either. Obviously this is a big workup and he is aware that he needs to follow-up with his primary care provider. He has had some trouble contacting his office and likely the language barrier is a big part of this, so I have my staff try to call to make him a follow-up but they say I will have to call back. He does have mild anemia but this seems to be unchanged and longstanding since 2021. He could not get the Linzess because it cost over 400 dollars with his insurance. I am going to try putting him on bisacodyl 2 tabs at bedtime and if it is not covered I did write it out for him as he can buy this inexpensively [id number]. Return office visit in 8 weeks to evaluate the bisacodyl Medications: New bisacodyl (Dulcolax (bisacodyl)) 10 mg (2 x 5 mg) PO BEDTIME 30 days 60 tabs 12RF K59.04 - Chronic idiopathic constipation Discontinued linaclotide (Linzess) Discontinued Reason: Insurance Denied 72 mcg PO QAM 30 caps 6RF K59.04 - Chronic idiopathic constipation Coding Level of Care Code Est Pt Level 3 (73732) Diagnoses Chronic idiopathic constipation K59.04 Helicobacter pylori gastritis K29.70; B96.81 GERD (gastroesophageal reflux disease) K21.9
[2024-12-30 15:48] VITALS: BP 136/86; PULSE 64; O2SAT 97; BMI 33.4
== END 2024-12-30 16:34 | disposition home or self-care (01) ==
LOC: HO.HGI 15:19
PROVIDERS: PCP Internal Medicine; Visit Provider Nurse Practitioner
DX: K59.04 Chronic idiopathic constipation (principal); K29.70 Gastritis, unspecified, without bleeding; B96.81 Helicobacter pylori [H. pylori] as the cause of diseases classified elsewhere; K21.9 Gastro-esophageal reflux disease without esophagitis
CPT/HCPCS: 99213

== ENCOUNTER → 2024-12-30 15:18 | Outpatient (BNVA) | payer MEDICARE, SELFPAY | PROVIDERS: PCP Internal Medicine; Visit Provider Nurse Practitioner | DX: K59.04 Chronic idiopathic constipation (principal); K29.70 Gastritis, unspecified, without bleeding; K21.9 Gastro-esophageal reflux disease without esophagitis; B96.81 Helicobacter pylori [H. pylori] as the cause of diseases classified elsewhere | CPT/HCPCS: 99212 ==

== ENCOUNTER 2025-01-04 13:31 | Outpatient (AMB) | payer MEDICARE, SELFPAY ==
--- OUTSIDE RECORDS SUMMARY | 2025-01-04 13:41 | XMS_ITS | Clinical Summary ---
Author Organization [facility] Facility Address [address] [address] Care Team Providers Care Continuing Education Dean Name Role Phone Peggy Coyne MD Primary Care Provider [phone] Social History Tobacco Use Types Packs/Day Years [...] patient's age to complete this topic Insurance [facility] [employer]net Care Teams Continuing Education Dean Relationship Specialty Start Date End Date Peggy Coyne MD 1962 [place] [address] PCP - General Internal Medicine 07/24/21
[2025-01-04 14:06] VITALS: BP 100/78; PULSE 47; TEMP 37.3; O2SAT 97; BMI 34.2
--- NOTE | 2025-01-04 14:06 | MHC.OFFWIV ---
Intake Vital Signs 01/04/25 14:06 Height 5 ft 8 in Weight 225 lb BMI 34.2 BP 100/78 Blood Pressure Location Rt brachial Position Sitting Pulse 47 L Pulse Source Pulse Oximeter Temp 99.1 F Temp Source Oral Pulse Oximetry (%) 97 Oxygen Delivery Method Room Air Intake Visit Reasons: EP cough, congestion, fever Intake Note: Pt is here today c/o cough, Patient Tobacco Use Status: Former Tobacco user Allergies No Known Allergies Allergy (Verified 12/30/24 15:41) HPI HPI Comments History of Present Illness Details History of Present Illness - The patient is a 64-year-old male presenting with upper respiratory symptoms for the past 2 weeks. - He reports symptoms of nasal congestion and cough which has persisted for several weeks. - He states that he has been having post nasal drip and in drains into the throat and chest. - He now has a fever, chills, cough, and shortness of breath. - He has post nasal drip and congestion. - He denies any asthma history and recent exposure to illness. - Reports no cigarette use and not currently on decongestants. - He denies SANCHES, CP, wheezing, abd pain, n/v/d, sick contacts, or travel. Physical Exam General: Cooperative, healthy appearing, comfortable, no acute distress and well developed Head: Normal to inspection Ears: Hearing grossly normal bilaterally Nose: Normal external nose present Face and sinus: Normal facial exam. No sinus tenderness noted. Neck: Normal visual inspection and Yes full ROM. No lymphadenopathy noted. Respiratory: Normal respiratory effort and able to speak in complete sentences. Clear to auscultation bilaterally Cardiovascular: Regular rate and rhythm. Normal S1 and S2 GI: Normal to inspection. Soft to palpation and nontender, nondistended. No guarding or rebound tenderness noted. Skin: No rashes or lesions noted Patient was informed and verbally consented to the use of an ambient scribe for clinic note documentation during this visit. [facility] Medical History (Updated 12/30/24 @ 17:08 by PATRIZIA Nguyễn) RUQ abdominal pain Constipation Thoracic back pain Left flank pain Mass of right upper extremity Tennis elbow Diastasis of rectus abdominis Oropharyngeal dysphagia Pre-op examination Gastritis Epigastric pain COVID-19 Abdominal pain H. pylori infection Annual physical exam Knee pain, left Angina pectoris Hyperlipidemia AIKEN (dyspnea on exertion) Vitamin D deficiency Hyperglycemia Fatigue Sciatica Neuropathy Diverticulitis Abdominal pain Chronic rhinitis Kidney stones Surgical History H/O colonoscopy History of esophagogastroduodenoscopy (EGD) Family History Father Lung cancer Mother Stroke Social History Household Members Other:: from [facility] Housing: House Alcohol intake: never Patient Tobacco Use Status: Former Tobacco user e-Cigarette/Vaping Use: Never Used Advance Directives Date on File: 08/29/24 service: No Current occupational status: employed Cognitive needs: No Hearing needs: No Vision needs: No Review of Systems Const All systems reviewed & are unremarkable except as noted in HPI and below Physical Exam Vital Signs: Last Vital Signs Temp 99.1 F 01/04/25 14:06 Pulse 47 L 01/04/25 14:06 BP 100/78 01/04/25 14:06 Pulse Ox 97 01/04/25 14:06 Oxygen Delivery Method Room Air 01/04/25 14:06 BMI result Body Mass Index 34.2 Assessment & Plan Assessment & Plan (1) Cough: Code(s): R05.9 - Cough, unspecified Qualifiers: Cough type: acute Qualified Code(s): R05.1 - Acute cough Plan Most likely pneumonia vs bronchitis vs covid vs flu vs RSV Plan - Order a chest x-ray to evaluate for potential pneumonia. - Administer antibiotics to address possible bacterial infection. - Prescribe medication to alleviate symptoms of cough. - Confirm patient's knowledge of x-ray location and compliance with imaging instruction. - Tylenol or Motrin as needed for pain or fever. - Stay hydrated. - Advised the ER if symptoms worsen such as fever persisting after Tylenol or SOB. Orders: Orders XR chest 2V Today R05.9 - Cough, unspecified Medications: New azithromycin For 250 mg dose pack: take 500 mg today (day 1), then 250 mg for 4 days (days 2-5) PO 6 tabs 0RF dextromethorphan HBr (Robitussin CoughGel) 15 mg PO Q8H 7 days PRN 21 caps 0RF cough albuterol sulfate 90 mcg/actuation 2 puffs inhalation Q6H PRN 8.5 grams 0RF shortness of breath or wheezing or cough Coding Level of Care Code Est Pt Level 4 (19265) Diagnoses Acute cough R05.1 Cough type: acute
== END 2025-01-04 15:53 | disposition home or self-care (01) ==
PROVIDERS: PCP Internal Medicine; Visit Provider Physician Assistant Medical
DX: R05.1 Acute cough (principal)

== ENCOUNTER 2025-01-04 13:31 | Outpatient (REF) | payer MEDICARE, SELFPAY ==
--- NOTE | ~2025-01-04 | XR_ITS ---
EXAMINATION: XR CHEST 2 VIEWS HISTORY: R05.9 - Cough, unspecified COMPARISON: Comparison is made with the prior examination dated 12/14/2024. FINDINGS: PA and lateral views of the chest are submitted. The lungs are expanded and clear. There is no pleural effusion, pneumothorax, or pulmonary vascular congestion. The heart is normal in size. The bones are intact. XR/XR chest 2V IMPRESSION: No acute cardiopulmonary abnormality. Electronically signed by: Ibrahima Sutherland MD 01/04/2025 03:34 PM EDT
== END 2025-01-04 13:32 | disposition home or self-care (01) ==
LOC: HO.HMGCX 13:31
PROVIDERS: PCP Internal Medicine; Visit Provider Physician Assistant Medical
DX: R05.9 Cough, unspecified (principal)
CPT/HCPCS: 71046; 99212

== ENCOUNTER → 2025-01-04 15:02 | Outpatient (BNV) | payer MEDICARE, SELFPAY | PROVIDERS: PCP Internal Medicine; Visit Provider Radiology Diagnostic Radiology | DX: R05.9 Cough, unspecified (principal) | CPT/HCPCS: 71046 ==

== ENCOUNTER 2025-01-16 09:40 | Outpatient (AMB) | payer MEDICARE, SELFPAY ==
[2025-01-16 10:00] VITALS: BP 124/86; PULSE 60; RESP 18; TEMP 36.6; O2SAT 95; BMI 33.9
--- NOTE | 2025-01-16 10:00 | A.OFFPC_ITS ---
Vital Signs 01/16/25 10:00 Height 5 ft 8 in Weight 223 lb BMI 33.9 BP 124/86 Blood Pressure Location Rt brachial Position Sitting Respiration 18 Pulse 60 Pulse Source Pulse Oximeter Temp 97.9 F Temp Source Oral Pulse Oximetry (%) 95 Oxygen Delivery Method Room Air Intake Visit Reasons: HDF ~ Post hospital discharge FU Intake Note: Pt is here today for Hospital follow up visit. Allergies No Known Allergies Allergy (Verified 01/16/25 10:02) Medication List - Last Reconciled 01/16/25 by Peggy Coyne MD albuterol sulfate 90 mcg/actuation 2 puffs inhalation Q6H PRN bisacodyl (Dulcolax (bisacodyl)) 10 mg (2 x 5 mg) PO BEDTIME 30 days famotidine (Pepcid) 40 mg PO BEDTIME 90 days metronidazole 0.75% (MetroCream) 1 appl topical BEDTIME montelukast 10 mg PO DAILY pantoprazole 40 mg PO DAILY Tobacco use date assessed: 01/16/25 Fall risk assessment: No Falls in past year Last assessed Fall Risk: 01/16/25 Dental Screening Dental Screen Date: 01/16/25 Did you have a dental visit in the last 12 months?: Yes Did you have a dental problem in the last 6 months where you did not have access to dental care?: No Was dental information given to patient?: Patient has dentist HPI HDF ~ Post hospital discharge FU HPI Details Patient presents for the follow-up of ER [facility] visit for left-sided chest pain. Cardiac workup and CT angiogram of the chest were negative. Patient reports persistent discomfort in the left upper chest worse with the body position changes. he denies cough shortness or breath pleurisy GI or complaints. [facility] Medical History RUQ abdominal pain Constipation Thoracic back pain Left flank pain Mass of right upper extremity Tennis elbow Diastasis of rectus abdominis Oropharyngeal dysphagia Pre-op examination Gastritis Epigastric pain COVID-19 Abdominal pain H. pylori infection Annual physical exam Knee pain, left Angina pectoris Hyperlipidemia AIKEN (dyspnea on exertion) Vitamin D deficiency Hyperglycemia Fatigue Sciatica Neuropathy Diverticulitis Abdominal pain Chronic rhinitis Kidney stones Surgical History H/O colonoscopy History of esophagogastroduodenoscopy (EGD) Family History Father Lung cancer Mother Stroke Social History Household Members Other:: from [facility] Housing: House Alcohol intake: never Patient Tobacco Use Status: Former Tobacco user e-Cigarette/Vaping Use: Never Used Advance Directives Date on File: 08/29/24 service: No Current occupational status: employed Cognitive needs: No Hearing needs: No Vision needs: No Questionnaire PHQ-9 Over the last 2 weeks, how often have you been bothered by any of the following problems? 1. Little interest or pleasure in doing things: not at all 2. Feeling down, depressed, or hopeless: not at all 3. Trouble falling or staying asleep, or sleeping too much: not at all 4. Feeling tired or having little energy: not at all 5. Poor appetite or overeating: not at all 6. Feeling bad about yourself - or that you are a failure or have let yourself or your family down: not at all 7. Trouble concentrating on things, such as reading the newspaper or watching television: not at all 8. Moving or speaking so slowly that other people could have noticed. Or the opposite - being so fidgety or restless that you have been moving around a lot more than usual: not at all 9. Thoughts that you would be better off or of hurting yourself in some way: not at all Total score: 0 Depression Screening Interpretation: Negative Depression Screening Done: Yes 40600 - PHQ-9 Billing: Yes Source: Developed by Drs. Ibrahima Llamas, Sarah Lan, Matty Murphy and colleagues, with an educational junie from [employer]. Thrive Questionnaire Date Thrive assessed: 01/16/25 I am a: Patient What is your living situation today?: I have a steady place to live Within the past 12 months, did the food you bought not last and you didn't have the money to get more?: Never true Within the past 12 months, did you worry whether your food would run out before you got money to buy more?: Never true Do you have trouble paying for medicines?: No Do you have trouble getting transportation to medical appointments?: No Do you have trouble paying your heating and electricity bill?: No Do you have trouble taking care of your child, family member or friend?: No Do you have trouble with day-to-day activities such as bathing, preparing meals, shopping, managing finances, etc.?: No Are you currently unemployed and looking for a job?: No Are you interested in more education?: No Please select the resources that you would like help with: None THRIVE Score: 0 AUDIT C Alcohol Use Questionnaire (AUDIT-C) 1. How often do you have a drink containing alcohol?: Never 3. How often do you have six or more drinks on one occasion?: Never Total Score: 0 ROLANDO-7 AMB Questionnaire ROLANDO-7 Date ROLANDO - 7 assessed: 01/16/25 Feeling nervous, anxious, or on edge: 0 = Not at all Not being able to stop or control worryin = Not at all Worrying too much about different things: 0 = Not at all Trouble relaxin = Not at all Being so restless that it is hard to sit still: 0 = Not at all Becoming easily annoyed or irritable: 0 = Not at all Feeling afraid as if something awful might happen: 0 = Not at all Total ROLANDO-7 score (0-4 normal; 5-9 mild; 10-14 moderate; 15-21 severe): 0 Source: Developed by Drs. Ibrahima Llamas, Sarah Lan, Matty Murphy and colleagues, with an educational junie from [employer]. ROLANDO-7 Assessment Billing ROLANDO-7 Assessment Tool: ROLANDO-7 Assessment 38982 Review of Systems Const All systems reviewed & are unremarkable except as noted in HPI and below Eyes Reports no additional complaints ENT Reports no additional complaints Card Reports no additional complaints Resp Reports no additional complaints GI Reports no additional complaints Reports no additional complaints Physical exam (Primary Care) Vital Signs: Last Vital Signs Temp 97.9 F 01/16/25 10:00 Pulse 60 01/16/25 10:00 Resp 18 01/16/25 10:00 BP 124/86 01/16/25 10:00 Pulse Ox 95 01/16/25 10:00 Oxygen Delivery Method Room Air 01/16/25 10:00 BMI result Body Mass Index 33.9 Tobacco/Smoking Status: Tobacco use Status Tobacco use date assessed 01/16/25 01/16/25 10:09 Patient Tobacco Use Status Former Tobacco user 01/16/25 10:05 e-Cigarette/Vaping Use Never Used 01/16/25 10:05 PHQ-9: PHQ-9 Score PHQ-9: Total score 0 01/16/25 10:09 Depression Screening Interpretation: Negative Thrive Assessment: Date of Thrive Assessment Date Thrive assessed 01/16/25 01/16/25 10:09 Const General: no acute distress HENMT Head: Yes normal to inspection Throat: Yes posterior oropharynx normal Eyes General: appearance normal, both eyes and all related structures Resp Effort & Inspection: normal respiratory effort Auscultation: clear to auscultation bilaterally Cardio Rhythm: regular rhythm Heart sounds: S1 normal heart sound present and S2 normal heart sound present Coding Level of Care Code Est Pt Level 4 (42745) Diagnoses Chest pain R07.9 Vitamin D deficiency E55.9 Hyperlipidemia E78.5 Additional Codes ROLANDO-7 Assessment Billing - ROLANDO-7 Assessment Tool: ROLANDO-7 Assessment 90270 ([id number]) PHQ-9 - 85818 - PHQ-9 Billing: Yes ([id number]) Assessment & Plan Assessment & Plan (1) Chest pain: Comment: Negative stress test 2021 Code(s): R07.9 - Chest pain, unspecified Category: Medical Plan: For recurrent musculoskeletal chest pain supportive care discussed with the patient. (2) Vitamin D deficiency: Code(s): E55.9 - Vitamin D deficiency, unspecified Category: Medical Plan: Continue vitamin-D (3) Hyperlipidemia: Comment: Diet control Code(s): E78.5 - Hyperlipidemia, unspecified Category: Medical Plan: Continue low-cholesterol diet, return for physical in 4 months with a fasting labs Orders: Orders Complete Blood Count Auto Diff 4 Months D64.9 - Anemia, unspecified, E55.9 - Vitamin D deficiency, unspecified, E78.5 - Hyperlipidemia, unspecified, R07.9 - Chest pain, unspecified Vitamin B12 and Folate 4 Months D64.9 - Anemia, unspecified, E55.9 - Vitamin D deficiency, unspecified, E78.5 - Hyperlipidemia, unspecified, R07.9 - Chest pain, unspecified Lipid Panel 4 Months D64.9 - Anemia, unspecified, E55.9 - Vitamin D deficiency, unspecified, E78.5 - Hyperlipidemia, unspecified, R07.9 - Chest pain, unspecified Comprehensive [place]. Panel Fast 4 Months D64.9 - Anemia, unspecified, E55.9 - Vitamin D deficiency, unspecified, E78.5 - Hyperlipidemia, unspecified, R07.9 - Chest pain, unspecified IRON PROFILE 4 Months D64.9 - Anemia, unspecified, E55.9 - Vitamin D deficiency, unspecified, E78.5 - Hyperlipidemia, unspecified, R07.9 - Chest pain, unspecified Immunofixation Pnl, Serum 4 Months D64.9 - Anemia, unspecified, E55.9 - Vitamin D deficiency, unspecified, E78.5 - Hyperlipidemia, unspecified, R07.9 - Chest pain, unspecified UA w Microscopic 4 Months D64.9 - Anemia, unspecified, E55.9 - Vitamin D deficiency, unspecified, E78.5 - Hyperlipidemia, unspecified, R07.9 - Chest pain, unspecified
--- OUTSIDE RECORDS SUMMARY | 2025-01-16 10:31 | XMS_ITS | Clinical Summary ---
Author Organization [facility] Facility Address [address] [address] Care Team Providers Care Optical Glass Inspector Name Role Phone Peggy Coyne MD Primary Care Provider [phone] Social History Tobacco Use Types Packs/Day Years [...] patient's age to complete this topic Insurance [facility] [employer] Care Teams Optical Glass Inspector Relationship Specialty Start Date End Date Peggy Coyne MD 1962 [place] [address] PCP - General Internal Medicine 07/24/21
== END 2025-01-16 10:56 | disposition home or self-care (01) ==
LOC: HO.HMCC 09:40
PROVIDERS: PCP Internal Medicine; Visit Provider Internal Medicine
DX: R07.9 Chest pain, unspecified (principal); E55.9 Vitamin D deficiency, unspecified; E78.5 Hyperlipidemia, unspecified

== ENCOUNTER → 2025-01-16 09:40 | Outpatient (BNVA) | payer MEDICARE, SELFPAY | PROVIDERS: PCP Internal Medicine; Visit Provider Internal Medicine | DX: E78.2 Mixed hyperlipidemia (principal); R07.9 Chest pain, unspecified; E55.9 Vitamin D deficiency, unspecified; D64.9 Anemia, unspecified; E78.5 Hyperlipidemia, unspecified | CPT/HCPCS: 96127; 99212 ==

== ENCOUNTER 2025-03-01 11:25 | Outpatient (REF) | payer MEDICARE, SELFPAY ==
--- NOTE | ~2025-03-01 | XR_ITS ---
EXAMINATION: XR SHOULDER, RIGHT CLINICAL INFORMATION: M25.511 - Pain in right shoulder COMPARISON: None available. TECHNIQUE: AP external rotation, Grashey, scapular Y, and axillary views of the right shoulder. FINDINGS: AC joint degenerative minimal degenerative hypertrophy. There is no AC joint separation. Glenoid humeral joint is intact. There is no joint space narrowing. XR/XR shoulder RT min 2V IMPRESSION: Mild AC joint arthropathy. Electronically signed by: Adrian Devine MD 03/01/2025 01:31 PM EDT
--- NOTE | ~2025-03-01 | XR_ITS ---
EXAMINATION: XR CERVICAL SPINE CLINICAL INFORMATION: M25.511 - Pain in right shoulder COMPARISON: None available. TECHNIQUE: 3 views of the cervical spine were obtained. FINDINGS: There is straightening of the cervical lordosis. There is no prevertebral soft tissue swelling. C2-3: Unremarkable C3-4: Mild disc space narrowing C4-5: Unremarkable C5-6: Mild to moderate disc space narrowing with endplate osteophytes and sclerosis. C6-7: Disc space narrowing and endplate osteophytes. C7-T1: Unremarkable XR/XR cervical spine 2V IMPRESSION: There is straightening of the expected cervical lordosis. This can be idiopathic, but can also be related to degenerative change, muscle spasm, or posterior soft tissue injury. Degenerative disc disease is most advanced at C5-6. Electronically signed by: Adrian Devine MD 03/01/2025 01:33 PM EDT
== END 2025-03-01 11:26 | disposition home or self-care (01) ==
LOC: HO.XRAY 11:25
PROVIDERS: PCP Internal Medicine; Visit Provider Nurse Practitioner
DX: K21.9 Gastro-esophageal reflux disease without esophagitis (principal); K29.70 Gastritis, unspecified, without bleeding; K59.04 Chronic idiopathic constipation; B96.81 Helicobacter pylori [H. pylori] as the cause of diseases classified elsewhere; M25.511 Pain in right shoulder; M62.838 Other muscle spasm; M25.512 Pain in left shoulder; M79.601 Pain in right arm; D64.9 Anemia, unspecified; R53.81 Other malaise; R00.1 Bradycardia, unspecified
CPT/HCPCS: 72040; 73030; 99212

== ENCOUNTER 2025-03-01 11:25 | Outpatient (AMB) | payer MEDICARE, SELFPAY ==
--- NOTE | 2025-03-01 11:27 | A.OFFVIS_ITS ---
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 CC: Patient reports doing well and denies having any GI concerns today. Drivers License Examiner Required: Yes Drivers License Examiner Language: Erit[place] Drivers License Examiner Name: [id number] [place] missile tracking technician Accompanied by: Self / Same As Patient Allergies No Known Allergies Allergy (Verified 03/01/25 11:38) HPI HPI 8 wks f/u , Needs [place] missile tracking technician: Details: Assessment & Plan (1) Chronic idiopathic constipation: Code(s): K59.04 - Chronic idiopathic constipation Category: Medical (2) Helicobacter pylori gastritis: Comment: Stool antigen 12/2024 negative after triple therapy Code(s): K29.70 - Gastritis, unspecified, without bleeding; B96.81 - Helicobacter pylori [H. pylori] as the cause of diseases classified elsewhere Category: Medical (3) GERD (gastroesophageal reflux disease): Code(s): K21.9 - Gastro-esophageal reflux disease without esophagitis Category: Medical Plan [place] #[id number] He was seen in the [facility] ER and had an EKG there. It appears that he has a relatively negative cardiac workup there is well except for some sinus bradycardia an intermittent PVCs. I review all of my labs and I can not find a reason for his general malaise either. Obviously this is a big workup and he is aware that he needs to follow-up with his primary care provider. He has had some trouble contacting his office and likely the language barrier is a big part of this, so I have my staff try to call to make him a follow-up but they say I will have to call back. He does have mild anemia but this seems to be unchanged and longstanding since 2 . He could not get the Linzess because it cost over 400 dollars with his insurance. I am going to try putting him on bisacodyl 2 tabs at bedtime and if it is not covered I did write it out for him as he can buy this inexpensively [id number]. Return office visit in 8 weeks to evaluate the bisacodyl Medications: New bisacodyl (Dulcolax (bisacodyl)) 10 mg (2 x 5 mg) PO BEDTIME 30 days 60 tabs 12RF K59.04 - Chronic idiopathic constipation Discontinued linaclotide (Linzess) Discontinued Reason: Insurance Denied 72 mcg PO QAM 30 caps 6RF K59.04 - Chronic idiopathic constipation TODAY'S VISIT E[place] #[id number] He never received the bisacodyl, again I write it down for him as he may need to buy it OTC. He has been trying to eat more fruits with some success. He is doign well with hte pantorpazole and famotidine. He still has left shoulder pain that seems to be under the shoulder blade. I will send him for both cervical and shoulder xrays to try to advance his dx and treatment. He may need MRI s or to see an orlthopedic doctor. He also has right sided back pain and severe spasm on exam in the spiinour area around T 10 right. Positive orthopedic exam is as noted in the exam portion of the note are somewhat inconclusive to diagnose rotator cuff impingement versus biceps tendonitis. He may need an MRI to further characterize. The differential diagnosis includes these and of course this also could be radicular pain from cervical impingement. I am going to give him a trial of Flexeril to see if this helps with the symptoms will spasm. I told him we may need to consider physical therapy depending on his results in the x-ray. ROV 4 weeks. [facility] Medical History (Updated 03/01/25 @ 12:06 by PATRIZIA Nguyễn) RUQ abdominal pain Constipation Thoracic back pain Left flank pain Mass of right upper extremity Tennis elbow Diastasis of rectus abdominis Oropharyngeal dysphagia Pre-op examination Gastritis Epigastric pain COVID-19 Abdominal pain H. pylori infection Annual physical exam Knee pain, left Hyperlipidemia AIKEN (dyspnea on exertion) Vitamin D deficiency Hyperglycemia Fatigue Sciatica Neuropathy Diverticulitis Abdominal pain Chronic rhinitis Kidney stones Surgical History H/O colonoscopy History of esophagogastroduodenoscopy (EGD) Family History Father Lung cancer Mother Stroke Social History Household Members Other:: from [facility] Housing: House Alcohol intake: never Patient Tobacco Use Status: Former Tobacco user e-Cigarette/Vaping Use: Never Used Advance Directives Date on File: 08/29/24 service: No Current occupational status: employed Cognitive needs: No Hearing needs: No Vision needs: No Review of Systems Const Denies fatigue, Denies fever(s), Denies night sweats, Denies poor appetite and Denies weight loss ENT Reports Normal hearing present, Denies dental pain, Denies dysphagia, Denies hearing loss, Denies mouth pain, Denies odynophagia, Denies throat swelling, Denies tongue swelling and Reports other (Dentition adequate) Card Reports chest pain Resp Reports no additional complaints GI Details: Denies abdominal pain, Denies melena, Denies bloating, Denies hematochezia, Reports constipation, Denies GI cramping, Denies dysphagia, Denies excessive flatus, Denies early satiety, Reports heartburn, Denies diarrhea, Denies nausea, Denies odynophagia, Denies vomiting and Denies hematemesis Musc Reports back pain, Reports arthralgias and Reports stiffness Skin/Breast Denies pruritus, Denies lesions, Denies rash and Denies jaundice Neuro Reports Normal hearing present and Denies Abnormal speech present Endo Denies fatigue Aller/Immun Denies throat swelling and Denies tongue swelling Physical Exam Vital Signs: BMI result Body Mass Index 33.5 Const General: cooperative, no acute distress, well developed and well groomed Nutritional Appearance: well nourished and obese Orientation/consciousness: oriented to person, oriented to place and oriented to time Limitations: language barrier HEENT Head: Yes normocephalic and Yes atraumatic Eyes General: appearance normal, both eyes and all related structures Pupils: Equal, round and reactive pupils present Neck Neck: Yes normal visual inspection and Yes no lymphadenopathy Thyroid: Thyroid normal Resp Effort & Inspection: normal respiratory effort and able to speak in complete sentences Auscultation: clear to auscultation bilaterally Cardio Rate: regular rate Rhythm: regular rhythm Heart sounds: Normal, physiologic split S2 sound present Peripheral pulses: radial pulses present and posterior tibial pulses present GI Inspection: No distended, No Abdominal panniculus present and Yes obesity Palpation (GI): Soft to palpation, nontender, no guarding, not rigid, No hepatosplenomegaly present and Hepatosplenomegaly present Percussion: Yes normal to percussion Auscultation: normal bowel sounds Rectal Exam - Male: Yes deferred Back/Spine/Pelvis Thoracic/Lumbar Spine: paraspinal muscle tenderness on the right in the lower thoracic (severe spasm felt) Skin General skin exam: no rashes or lesions noted, turgor normal, skin not dry, no jaundice, No spider nevi and no striae Rashes: no rashes Nails: normal Neuro General: oriented to person, oriented to place and oriented to time Cranial nerves: Yes Equal, round and reactive pupils present and Yes Normal hearing present Speech: No Abnormal speech present Extrem Other: No pain w/extension and I/R, + Neers and Obriens with rt weakness, pain but no weakness with Yergensons General: Yes normal to inspection, No clubbing, No cyanosis and No edema Right upper extremity: normal to inspection and shoulder/upper arm (+ Obriens) Details: normal ROM Left upper extremity: normal to inspection and full ROM Psych Appearance: grossly normal and well kempt Mental Status: mental status grossly normal Speech and movement: Normal speech and movement present Affect: normal affect Attitude: cooperative Thought process: Normal thought process present and not confabulating Thought content: Normal thought content present Insight: Fair insight present (Psych) and Limited insight present (Psych) Judgement: Fair judgement present (Psych) and Limited judgement present (Psych) Assessment & Plan Assessment & Plan (1) GERD (gastroesophageal reflux disease): Code(s): K21.9 - Gastro-esophageal reflux disease without esophagitis Category: Medical (2) Chronic idiopathic constipation: Code(s): K59.04 - Chronic idiopathic constipation Category: Medical (3) Right shoulder pain: Code(s): M25.511 - Pain in right shoulder Category: Medical (4) Arm pain: Code(s): M79.603 - Pain in arm, unspecified Category: Medical (5) Muscle spasm: Code(s): M62.838 - Other muscle spasm Category: Medical Plan [place] #[id number] He never received the bisacodyl, again I write it down for him as he may need to buy it OTC. He has been trying to eat more fruits with some success. He is doign well with hte pantorpazole and famotidine. He still has left shoulder pain that seems to be under the shoulder blade. I will send him for both cervical and shoulder xrays to try to advance his dx and treatment. He may need MRI s or to see an orlthopedic doctor. He also has right sided back pain and severe spasm on exam in the spiinour area around T 10 right. Positive orthopedic exam is as noted in the exam portion of the note are somewhat inconclusive to diagnose rotator cuff impingement versus biceps tendonitis. He may need an MRI to further characterize. The differential diagnosis includes these and of course this also could be radicular pain from cervical impingement. Pulmonary disease and cardiac disease at been ruled out by prior chest x-rays and ER visits. I am going to give him a trial of Flexeril to see if this helps with the symptoms will spasm. I told him we may need to consider physical therapy depending on his results in the x-ray. ROV 4 weeks. Orders: Orders XR cervical spine 2V Today M25.511 - Pain in right shoulder, M79.603 - Pain in arm, unspecified XR shoulder RT min 2V Today M25.511 - Pain in right shoulder, M79.603 - Pain in arm, unspecified Medications: New cyclobenzaprine 10 mg PO BID 60 tabs 3RF M62.838 - Other muscle spasm Refilled pantoprazole 40 mg PO DAILY 90 tabs 2RF bisacodyl (Dulcolax (bisacodyl)) 10 mg (2 x 5 mg) PO BEDTIME 60 tabs 12RF 30 days K59.04 - Chronic idiopathic constipation famotidine (Pepcid) 40 mg PO BEDTIME 90 tabs 1RF 90 days Coding Level of Care Code Est Pt Level 4 (38907) Diagnoses GERD (gastroesophageal reflux disease) K21.9 Chronic idiopathic constipation K59.04 Right shoulder pain M25.511 Arm pain M79.603 Muscle spasm M62.838 Time Spent (min) 37
[2025-03-01 11:29] VITALS: BP 129/77; PULSE 60; BMI 33.5
--- OUTSIDE RECORDS SUMMARY | 2025-03-01 12:26 | XMS_ITS | Clinical Summary ---
Author Organization [facility] Facility Address [address] [address] Care Team Providers Care Automotive Design Layout Drafter Name Role Phone Peggy Coyne MD Primary Care Provider [phone] Social History Tobacco Use Types Packs/Day Years [...] 01/29/2008 Pneumococcal Vaccine: 50+ Ye ars (1 of 1 - PCV) 2009 Influenza Vaccine (#1) 2025 Hepatitis B Vaccine Aged Out No longe r eligible based on patient's age to complete this topic Insurance [facility] Healthnet Care Teams Automotive Design Layout Drafter Relationship Specialty Start Date End Date Peggy Coyne MD 1962 [place] [address] PCP - General Internal Medicine 07/24/21
== END 2025-03-01 12:12 | disposition home or self-care (01) ==
LOC: HO.HGI 11:25
PROVIDERS: PCP Internal Medicine; Visit Provider Nurse Practitioner
DX: K21.9 Gastro-esophageal reflux disease without esophagitis (principal); K59.04 Chronic idiopathic constipation; M25.511 Pain in right shoulder; M79.603 Pain in arm, unspecified; M62.838 Other muscle spasm
CPT/HCPCS: 99214

== ENCOUNTER → 2025-03-01 12:25 | Outpatient (BNV) | payer MEDICARE, SELFPAY | PROVIDERS: PCP Internal Medicine; Visit Provider Radiology Diagnostic Radiology | DX: M50.322 Other cervical disc degeneration at C5-C6 level (principal); M19.011 Primary osteoarthritis, right shoulder | CPT/HCPCS: 72040; 73030 ==

== ENCOUNTER 2025-05-11 13:10 | Outpatient (REF) | payer MEDICARE, SELFPAY ==
[2025-05-11 16:28] LABS: MANUAL DIFF FLAG NO
[2025-05-11 16:33] LABS: Hematocrit 40.1 % (42.0-52.0); Hemoglobin 13.3 g/dl (14.0-18.0); Imm Gran Abs Auto 0.01 X10*3/uL (0.00-0.03); Imm Gran Pct Auto 0.1 % (0.0-0.4); Lymphocytes Absolute Auto 4.7 X10*3/uL (1.2-4.9); Mean Corpuscular HGB Conc 33.2 g/dl (31.0-36.0); Mean Corpuscular Hemoglobin 29.8 pg (27.0-33.0); Mean Corpuscular Volume 89.9 fL (80.0-98.0); NRBC Abs Auto 0.000 X10*3/uL (0.0-0.012); NRBC Pct Auto 0.0 /100WBC (0.0-0.2); Platelet Count 245 X10*3/uL (160-400); Red Blood Count 4.46 X10*6/uL (4.60-5.80); White Blood Count 8.0 X10*3/uL (4.8-10.8)
[2025-05-11 17:05] LABS: Alanine Aminotransferase 22 U/L (0-40); Albumin Level 4.4 g/dL (3.5-5.0); Alkaline Phosphatase 55 U/L (39-117); Anion Gap 11 (12-20); Aspartate Amino Transferase 27 U/L (5-37); Blood Urea Nitrogen 24 mg/dL (9-16); Calcium 9.0 mg/dL (8.4-10.2); Carbon Dioxide 26 mmol/L (22-29); Chloride 109 mmol/L (96-108); Cholesterol 226 mg/dL (<200); Estimated Glomerular Filt Rate > 60; HDL Cholesterol 60 mg/dL (>40); Iron 105 mcg/dL (45-160); Percent Iron Saturation 45 % (15-50); Potassium 4.2 mmol/L (3.3-5.1); Sodium 142 mmol/L (135-145); Total Iron Binding Capacity 234 mcg/dL (228-428); Total Protein 7.2 g/dL (6.5-8.0); Triglycerides 75 mg/dL (<150); Unsaturated Iron Binding 129 ug/dL
[2025-05-11 17:37] LABS: Folate 7.4 ng/mL (> or = 4.0); Vitamin B12 927 pg/mL (200-900)
== END 2025-05-11 13:11 | disposition home or self-care (01) ==
LOC: HO.HMGCLDS 13:10
PROVIDERS: PCP Internal Medicine; Visit Provider Internal Medicine
DX: R07.9 Chest pain, unspecified (principal); D64.9 Anemia, unspecified; E78.5 Hyperlipidemia, unspecified; E55.9 Vitamin D deficiency, unspecified
CPT/HCPCS: 36415; 80053; 80061; 82607; 82746; 82784; 83540; 85025; 86334

== ENCOUNTER 2025-05-16 08:57 | Outpatient (AMB) | payer MEDICARE, SELFPAY ==
[2025-05-16 08:58] VITALS: BP 122/76; PULSE 67; TEMP 36.6; O2SAT 97; BMI 33.8
--- NOTE | 2025-05-16 08:58 | MHC.PC.OV ---
Vital Signs 05/16/25 08:58 Height 5 ft 8 in Weight 222 lb BMI 33.8 BP 122/76 Blood Pressure Location Lt brachial Position Sitting Pulse 67 Pulse Source Pulse Oximeter Temp 97.8 F Temp Source Oral Pulse Oximetry (%) 97 Oxygen Delivery Method Room Air Intake Visit Reasons: PE Intake Note: Pt is here today for PE. Allergies No Known Allergies Allergy (Verified 05/16/25 09:02) Tobacco use date assessed: 01/16/25 Dental Screening Dental Screen Date: 01/16/25 HPI PE HPI Details Patient presents for physical. He reports persistent sensation of right upper abdomen and right flank discomfort on and off not related to food intake. Patient reports sensation of urinary bladder pressure and increased frequency of urination at night up to 3 times. Patient denies dysuria nausea vomiting fever chills hematuria. He has been taking laxatives every other day for chronic constipation. [facility] Medical History (Updated 05/16/25 @ 11:10 by Peggy Coyne MD) Annual physical exam Tubular adenoma of colon Helicobacter pylori gastritis GERD (gastroesophageal reflux disease) Chest pain RUQ abdominal pain Constipation Thoracic back pain Left flank pain Mass of right upper extremity Tennis elbow Diastasis of rectus abdominis Oropharyngeal dysphagia Pre-op examination Gastritis Epigastric pain COVID-19 Abdominal pain H. pylori infection Knee pain, left Hyperlipidemia AIKEN (dyspnea on exertion) Vitamin D deficiency Hyperglycemia Fatigue Sciatica Neuropathy Diverticulitis Abdominal pain Chronic rhinitis Kidney stones Surgical History H/O colonoscopy History of esophagogastroduodenoscopy (EGD) Family History Father Lung cancer Mother Stroke Social History Household Members Other:: from [facility] Housing: House Alcohol intake: never Patient Tobacco Use Status: Former Tobacco user e-Cigarette/Vaping Use: Never Used Advance Directives Date on File: 08/29/24 service: No Current occupational status: employed Cognitive needs: No Hearing needs: No Vision needs: No Questionnaire Thrive Questionnaire Date Thrive assessed: 01/16/25 ROLANDO-7 AMB Questionnaire ROLANDO-7 Date ROLANDO - 7 assessed: 01/16/25 Source: Developed by Drs. Ibrahima Llamas, Sarah Lan, Matty Murphy and colleagues, with an educational junie from [employer]. Review of Systems Const All systems reviewed & are unremarkable except as noted in HPI and below Eyes Reports no additional complaints ENT Reports no additional complaints Card Reports no additional complaints Resp Reports no additional complaints GI Reports no additional complaints Reports no additional complaints Physical exam (Primary Care) Vital Signs: Last Vital Signs Temp 97.8 F 05/16/25 08:58 Pulse 67 05/16/25 08:58 BP 122/76 05/16/25 08:58 Pulse Ox 97 05/16/25 08:58 Oxygen Delivery Method Room Air 05/16/25 08:58 BMI result Body Mass Index 33.8 Tobacco/Smoking Status: Tobacco use Status Tobacco use date assessed 01/16/25 05/16/25 08:59 Patient Tobacco Use Status Former Tobacco user 05/16/25 08:59 e-Cigarette/Vaping Use Never Used 05/16/25 08:59 Thrive Assessment: Date of Thrive Assessment Date Thrive assessed 01/16/25 05/16/25 08:59 Const General: no acute distress HENMT Head: Yes normal to inspection Ears: TM's normal bilaterally Mouth: Normal oral and palatal mucosa present Throat: Yes posterior oropharynx normal Eyes General: appearance normal, both eyes and all related structures Neck Neck: Yes no lymphadenopathy and Yes supple Resp Effort & Inspection: normal respiratory effort Auscultation: clear to auscultation bilaterally Cardio Rhythm: regular rhythm Heart sounds: S1 normal heart sound present and S2 normal heart sound present GI Inspection: Yes normal to inspection Palpation (GI): Soft to palpation Percussion: Yes normal to percussion Auscultation: normal bowel sounds General: Yes no CVA tenderness Back/Spine/Pelvis Back: no CVA tenderness Coding Level of Care Code Est Pt Prev Care >65y(31537) Diagnoses Dysuria R30.0 Hyperlipidemia E78.5 BPH (benign prostatic hyperplasia) N40.0 RUQ abdominal pain R10.11 Annual physical exam Z00.00 Assessment & Plan Assessment & Plan (1) Dysuria: Code(s): R30.0 - Dysuria Category: Medical Plan: Check UA and urine culture obtain bladder scan to evaluate for postvoid residual (2) Hyperlipidemia: Code(s): E78.5 - Hyperlipidemia, unspecified Category: Medical Plan: Start pravastatin 20 mg daily continue low-cholesterol diet check lipid profile in 2 months (3) BPH (benign prostatic hyperplasia): Code(s): N40.0 - Benign prostatic hyperplasia without lower urinary tract symptoms Category: Medical Plan: Check PSA level (4) RUQ abdominal pain: Code(s): R10.11 - Right upper quadrant pain Category: Medical Plan: Obtain abdominal ultrasound to evaluate for gallstones and nephrolithiasis (5) Annual physical exam: Code(s): Z00.00 - Encounter for general adult medical examination without abnormal findings Category: Medical Plan: Well-balanced diet regular exercise weight loss discussed with the patient. He will follow-up in 2 months with a fasting labs before Orders: Orders US bladder Today N40.0 - Benign prostatic hyperplasia without lower urinary tract symptoms PSA,Total (Free>4and<10) 2 Months N40.0 - Benign prostatic hyperplasia without lower urinary tract symptoms US abdomen complete Today R10.11 - Right upper quadrant pain UA w Microscopic Today R30.0 - Dysuria Urine Culture Today R30.0 - Dysuria Lipid Panel 2 Months E78.5 - Hyperlipidemia, unspecified Medications: New pravastatin 20 mg PO DAILY 90 tabs 3RF metronidazole 0.75% (MetroCream) 1 appl topical BEDTIME 45 grams 3RF mometasone 0.1% 1 appl topical DAILY 15 grams 1RF 1 week Discontinued famotidine (Pepcid) Discontinued Reason: Doctor's Order 40 mg PO BEDTIME 90 days 90 tabs 1RF
--- OUTSIDE RECORDS SUMMARY | 2025-05-16 09:30 | XMS_ITS | Clinical Summary ---
Author Organization [facility] Facility Address [address] [address] Care Team Providers Care Wire Stitcher Operator Name Role Phone Peggy Coyne MD Primary Care Provider [phone] Social History Tobacco Use Types Packs/Day Years [...] patient's age to complete this topic Insurance [facility] [employer] Care Teams Wire Stitcher Operator Relationship Specialty Start Date End Date Peggy Coyne MD 1962 [place] [address] PCP - General Internal Medicine 07/24/21
== END 2025-05-16 11:11 | disposition home or self-care (01) ==
PROVIDERS: PCP Internal Medicine; Visit Provider Internal Medicine
DX: Z00.00 Encounter for general adult medical examination without abnormal findings (principal); R30.0 Dysuria; E78.5 Hyperlipidemia, unspecified; N40.0 Benign prostatic hyperplasia without lower urinary tract symptoms; R10.11 Right upper quadrant pain

== ENCOUNTER 2025-05-16 08:57 | Outpatient (REF) | payer MEDICARE, SELFPAY ==
[2025-05-16 13:16] LABS: Appearance Urine Cloudy; Glucose Urine UA Negative (Negative); PH 5.5 (5.0-9.0); Specific Gravity - Urine 1.020 (1.005-1.025); UMIC TRIGGER UA YES
== END 2025-05-16 08:58 | disposition home or self-care (01) ==
LOC: HO.HMGCLDS 08:57
PROVIDERS: PCP Internal Medicine; Visit Provider Internal Medicine
DX: Z00.00 Encounter for general adult medical examination without abnormal findings (principal); R30.0 Dysuria; E78.5 Hyperlipidemia, unspecified; N40.0 Benign prostatic hyperplasia without lower urinary tract symptoms; R10.11 Right upper quadrant pain
CPT/HCPCS: 81001; 87086; 99397

== ENCOUNTER 2025-07-19 10:03 | Outpatient (REF) | payer MEDICARE, SELFPAY ==
--- NOTE | ~2025-07-19 | US_ITS ---
CLINICAL HISTORY: N40.0 - Benign prostatic hyperplasia without lower urinary tract symptoms --- Additional Notes or Special Instructions: POSTVOIDAL RESIDUE US bladder with color Doppler Comparison: None Findings: Prostate gland measures 3.3 x 2.8 x 3.4 cm Urinary bladder is unremarkable. Prevoid volume 165.0 mL. Postvoid volume 24.0 mL. Ureteral jets are visualized bilaterally Impression: 1. Slightly elevated postvoid residual 2. Prostate volume measured at 16.2 mL This document has been electronically signed by: Armando Rod MD on 07/19/2025 12:09:16
--- NOTE | ~2025-07-19 | US_ITS ---
CLINICAL HISTORY: R10.11 - Right upper quadrant pain --- Additional Notes or Special Instructions: R O GALLSTONES AND NEPHROLITHIASIS US abdomen complete. COMPARISON: US abdomen limited dated 05/30/24 at 13:59 EDT Technique: Real time sonographic imaging, including color-flow imaging, was performed by the finance advisor. Multiple motor vehicle representative static images were saved for review. FINDINGS: The visualized aorta and inferior vena cava are normal caliber. The visualized portions of the pancreas appear normal. The liver has normal echotexture. The main portal vein is antegrade. Liver, right lobe size: 15.4 cm, normal. The gallbladder is normal in size. No cholelithiasis or sludge identified. Gallbladder wall: 1-2 mm, normal. Common bile duct: 3 mm, normal. Right kidney: Cortical medullary differentiation is maintained. Normal color flow by Doppler. Simple renal cyst at the superior pole measuring 0.5 x 0.3 x 0.3 cm. No hydronephrosis. Right kidney length: 11.5 cm Left kidney: Cortical medullary differentiation is maintained. Normal color flow by Doppler. Simple exophytic renal cyst at the superior pole measuring 0.9 x 1.2 x 0.8 cm. Echogenic nonshadowing bright spot present along the lateral aspect of the mid portion of the left kidney measuring 0.2 cm possibly representing a nonshadowing renal calculus versus angiomyolipoma. No hydronephrosis. Left kidney length: 11.6 cm The spleen has normal echogenicity. Splenic length: 8.3 cm, normal. No free intraperitoneal fluid identified. IMPRESSION: 1. No cause for patient's symptoms identified. No evidence of cholecystitis or renal obstruction . 2. Nonshadowing calculus versus small angiomyolipoma at the midportion of the left kidney. 3. Simple renal cysts measuring to 0.5 cm on the right and 0.9 cm on left. This document has been electronically signed by: Arsen Chou MD on 07/19/2025 17:27:09
== END 2025-07-19 10:04 | disposition home or self-care (01) ==
LOC: HO.US 10:03
PROVIDERS: Visit Provider Internal Medicine
DX: N40.0 Benign prostatic hyperplasia without lower urinary tract symptoms (principal); R10.11 Right upper quadrant pain
CPT/HCPCS: 76700; 76857

== ENCOUNTER → 2025-07-19 10:06 | Outpatient (BNV) | payer MEDICARE, SELFPAY | PROVIDERS: Visit Provider Radiology Diagnostic Radiology | DX: N28.1 Cyst of kidney, acquired (principal); N40.0 Benign prostatic hyperplasia without lower urinary tract symptoms | CPT/HCPCS: 76700; 76857 ==